=== PATIENT | male | born 1960 | race Caucasian/White ===

== ENCOUNTER → 2016-04-13 | Outpatient (REF) | payer MEDICARE, MEDICAID ==
[2016-04-13 17:02] LABS: INR 2.13
== END ==
LOC: M SFHCCAPE 11:06
PROVIDERS: ATTEND Physician Assistant
DX: Z51.81 Encounter for therapeutic drug level monitoring (principal); Z79.01 Long term (current) use of anticoagulants; Z86.718 Personal history of other venous thrombosis and embolism

== ENCOUNTER → 2016-04-21 | Outpatient (REF) | payer MEDICARE, MEDICAID ==
[2016-04-21 18:44] LABS: INR 2.81
== END ==
LOC: M SFHCCAPE 08:51
PROVIDERS: ATTEND Physician Assistant
DX: Z51.81 Encounter for therapeutic drug level monitoring (principal); Z86.718 Personal history of other venous thrombosis and embolism

== ENCOUNTER → 2016-04-28 | Outpatient (REF) | payer MEDICARE, MEDICAID ==
[~2016-04-28] MED LIST: ALBU17IN2 INH; ASPI1TAB PO; ATEN50TA2 PO; ATOR40TA PO; BUPR1TAB17 PO; BUPR300T34 PO; CALC600T57 PO; CETI10CH PO; COUM10TA PO; DILT180C74 PO; FAMO20TA PO; GLUC1CAP10 PO; HAIR1TAB5 PO; INSUH10VL SC; LANTINJ4 SC; METF1000 PO; MULT1TAB9 PO; NEUR300C PO; NEUR600T PO; OMEP40CA2 PO; OXYC1TAB16 PO; PRIL20CA9 PO; SERT-138 PO; TRAZ150T14 PO; UMECLIDINIUM INH; VITA500C24 PO; VITATAB11 PO; WARF4TAB52 PO
[2016-04-28 19:09] LABS: INR 1.44
== END ==
LOC: M SFHCCAPE 07:33
PROVIDERS: ATTEND Physician Assistant
DX: Z51.81 Encounter for therapeutic drug level monitoring (principal); Z79.01 Long term (current) use of anticoagulants; Z86.718 Personal history of other venous thrombosis and embolism

== ENCOUNTER → 2016-05-03 | Outpatient (CLI) | payer MEDICARE, MEDICAID ==
--- NOTE | 2016-05-05 05:46 | SLEEPCENT ---
DATE OF PROCEDURE: 05/03/2016 ORDERED BY: KATHERINE Koo Nocturnal polysomnography was performed for re-titration of pressure therapy in this patient with obstructive sleep apnea syndrome. For testing, a [employer] and [employer] [place], Simplus full face mask of large size was used. 13 cm of water pressure was initially applied to the circuit and the lights were extinguished. 7 hours and 10 minutes of data were reviewed. There were 368 minutes of sleep identified. Sleep latency was prolonged at 20 minutes. Rapid eye movement (REM) latency prolonged at 182 minutes. Sleep architecture was fair with a sleep efficiency of 88%. There were 2 REM periods noted. The patient's electrocardiogram (EKG) showed a sinus rhythm with an average heart rate of 88 beats per minute. Electroencephalogram (EEG) showed mild coarsening in the background, otherwise normal waveforms for awake and sleep. Respiratory events were reasonably palliated with CPAP at a pressure of +13. However, limb activity was noted persistently over the course of the study. There were 4-5 trains of 30 events. Limb movement arousal index was 9.1. IMPRESSION: 1. Obstructive sleep apnea syndrome (G47.33). 2. Periodic limb movement disorder (G47.61). Limb movement arousal index 9.1. RECOMMENDATION: Nightly use of pressure therapy at 13 cm of water would be sufficient to address the patient's respiratory events. Interventions to reduce the frequency arousal from limb activity should also improve quality of sleep.
== END | disposition home or self-care (01) ==
LOC: M SLEEP 19:42
PROVIDERS: ATTEND Nurse Practitioner Adult Health
DX: G47.33 Obstructive sleep apnea (adult) (pediatric) (principal); G47.61 Periodic limb movement disorder

== ENCOUNTER → 2016-05-05 | Outpatient (REF) | payer MEDICARE, MEDICAID ==
[2016-05-05 17:56] LABS: INR 1.55
== END ==
LOC: M SFHCCAPE 10:37
PROVIDERS: ATTEND Physician Assistant
DX: Z51.81 Encounter for therapeutic drug level monitoring (principal); Z79.01 Long term (current) use of anticoagulants; Z86.718 Personal history of other venous thrombosis and embolism

== ENCOUNTER → 2016-05-11 | Outpatient (REF) | payer MEDICARE, MEDICAID ==
[2016-05-11 18:07] LABS: INR 1.78
== END ==
LOC: M SFHCCAPE 10:35
PROVIDERS: ATTEND Physician Assistant
DX: Z51.81 Encounter for therapeutic drug level monitoring (principal); Z79.01 Long term (current) use of anticoagulants; Z86.718 Personal history of other venous thrombosis and embolism

== ENCOUNTER → 2016-05-18 | Outpatient (REF) | payer MEDICARE, MEDICAID ==
[2016-05-18 18:05] LABS: INR 2.42
== END ==
LOC: M SFHCCAPE 08:55
PROVIDERS: ATTEND Physician Assistant
DX: Z51.81 Encounter for therapeutic drug level monitoring (principal); Z79.01 Long term (current) use of anticoagulants; Z86.718 Personal history of other venous thrombosis and embolism

== ENCOUNTER → 2016-05-24 | Outpatient (REF) | payer MEDICARE, MEDICAID ==
[2016-05-24 18:25] LABS: ALBUMIN 3.9 GM/DL (3.2-5.2); ALBUMIN/GLOBULIN RATIO 1.18 (1.00-1.93); ALKALINE PHOSPHATASE 125 U/L (45-117); ALT/SGPT 49 U/L (12-78); ANION GAP 10 MEQ/L (8-16); AST/SGOT 39 U/L (15-37); BILIRUBIN,TOTAL 0.4 MG/DL (0.2-1.0); BLOOD UREA NITROGEN 17 MG/DL (7-18); CALCIUM LEVEL 8.1 MG/DL (8.5-10.1); CARBON DIOXIDE LEVEL 26 MEQ/L (21-32); CHLORIDE LEVEL 102 MEQ/L (98-107); CHOLESTEROL LEVEL 127 MG/DL (<200); CREATININE FOR GFR 1.12 MG/DL (0.70-1.30); FREE T4 1.21 NG/DL (0.76-1.46); GLOMERULAR FILTRATION RATE > 60.0 (>56); GLUCOSE, FASTING 234 MG/DL (70-105); POTASSIUM SERUM 4.5 MEQ/L (3.5-5.1); SODIUM LEVEL 138 MEQ/L (136-145); TOTAL PROTEIN 7.2 GM/DL (6.4-8.2); TRIGLYCERIDES LEVEL 241 MG/DL (<150)
[2016-05-24 19:16] LABS: BASO % 0.4 % (0.0-1.0); EOS # 0.2 K/mm3 (0.0-0.50); EOS % 1.7 % (0.0-3.0); LARGE UNSTAINED CELL # 0.1 K/mm3 (0.0-0.4); LARGE UNSTAINED CELL % 1.3 % (0.0-4.0); LYMPH # 2.1 K/mm3 (1.5-4.5); LYMPH % 21.3 % (24.0-44.0); MEAN CORPUSCULAR HEMOGLOBIN 30.8 pg (27.0-33.0); MEAN CORPUSCULAR HGB CONC 33.2 g/dl (32.0-36.5); MEAN CORPUSCULAR VOLUME 92.8 fl (80.0-96.0); MONO # 0.5 K/mm3 (0.0-0.8); MONO % 5.5 % (0.0-5.0); NEUTROPHILS # 6.5 K/mm3 (1.8-7.7); NEUTROPHILS % 69.6 % (36.0-66.0); PLATELET COUNT, AUTOMATED 198 k/mm3 (150-450); RED CELL DISTRIBUTION WIDTH 13.8 % (11.5-14.5); WHITE BLOOD COUNT 9.3 K/mm3 (4.0-10.0)
[2016-05-24 19:18] LABS: INR 3.9
== END ==
LOC: M SFHCCAPE 07:57
PROVIDERS: ATTEND Physician Assistant
DX: E11.8 Type 2 diabetes mellitus with unspecified complications (principal); F32.9 Major depressive disorder, single episode, unspecified; Z86.718 Personal history of other venous thrombosis and embolism

== ENCOUNTER → 2016-05-31 | Outpatient (REF) | payer MEDICARE, MEDICAID ==
[2016-05-31 17:48] LABS: INR 3.43
== END ==
LOC: M SFHCCAPE 08:49
PROVIDERS: ATTEND Physician Assistant
DX: Z51.81 Encounter for therapeutic drug level monitoring (principal); Z79.01 Long term (current) use of anticoagulants; Z86.718 Personal history of other venous thrombosis and embolism

== ENCOUNTER → 2016-06-01 | Outpatient (REF) | payer MEDICARE, MEDICAID ==
[2016-06-01 17:49] LABS: INR 2.37
== END ==
LOC: M SFHCCAPE 07:18
PROVIDERS: ATTEND Physician Assistant
DX: Z51.81 Encounter for therapeutic drug level monitoring (principal); Z79.01 Long term (current) use of anticoagulants; Z86.718 Personal history of other venous thrombosis and embolism

== ENCOUNTER → 2016-06-11 | Day surgery (SDC) | payer MEDICARE, MEDICAID ==
[~2016-06-11] VITALS: Ht 190.5 cm; Wt 122.5 kg
[~2016-06-11] MED LIST changes: +ALBUTEROL 6.7GM INHALER **FOR ANES. CART/OMNICELL ONLY As Ordered ONE; +BUPIVACAINE HCL 0.25% 30 ML VIAL As Ordered ONE; +BUPIVACAINE HCL 0.25% 30 ML VIAL XX ONE; +GLYCOPYRROLATE INJ 0.2 MG/ML 2 ML VIAL As Ordered ONE; +KETOROLAC 30 MG/ML VIAL (J1885) IV PRN; +KETOROLAC 60 MG/2 ML VIAL (J1885) As Ordered ONE; +LIDOCAINE 1% SDV INJ 30 ML VIAL As Ordered ONE; +LIDOCAINE 1% SDV INJ 30 ML VIAL XX ONE; +LIDOCAINE 2% INJ 100 MG/5 ML SDV (FOR ANES.) As Ordered ONE; +LR 1,000 ML IV SCH; +MIDAZOLAM INJ 2 MG/2 ML VIAL (J2250) As Ordered ONE; +NEOSTIGMINE 1MG/ML 5 ML SYRINGE (J2710) As Ordered ONE; +NORCO, ANEXSIA 5/325MG TABLET (HYDROcodone/ACETAMINOPHEN) PO PRN; +ONDANSETRON 4MG/2ML VIAL (J2405) As Ordered ONE; +ONDANSETRON 4MG/2ML VIAL (J2405) IV PRN; +PERCOCET 5MG/325MG TAB PO PRN; +PROPOFOL 200 MG/20 ML VIAL As Ordered ONE; +ROCURONIUM BROMIDE 50 MG/5 ML VIAL As Ordered ONE; +fentaNYL 100 MCG/2 ML INJECTION (J3010) As Ordered ONE; +fentaNYL 100 MCG/2 ML INJECTION (J3010) IV PRN
[2016-06-11 09:41] LABS: INR 0.91
[2016-06-11 13:55] VITALS: BP 120/61
--- NOTE | 2016-06-16 08:42 | RO ---
DATE OF PROCEDURE: 06/11/2016 PREOPERATIVE DIAGNOSIS: Umbilical hernia. POSTOPERATIVE DIAGNOSIS: Umbilical hernia. PROCEDURE: Laparoscopic umbilical hernia repair with 9 cm Parietex composite mesh. SURGEON: Dr. Hermelindo Mercado TAFFY PULLER: Dr. Mata ANESTHESIA: General anesthesia. ESTIMATED BLOOD LOSS: Less than 10 mL. COMPLICATIONS: None. REMARKS: The patient tolerated the procedure well. PROCEDURE NOTE: Mr. Mcwilliams is a 55-year-old gentleman who presented to my office with complaint of discomfort associated with small bulge just above his umbilicus. He was noted to have an umbilical hernia. Due to his discomfort, he was advised repair. We talked about our options and decided to perform this laparoscopically. He was seen by his primary care doctor and cleared for the surgery. He is on Coumadin for prior history of deep vein thrombosis (DVT) and pulmonary embolism (PE). This has been on hold for the past 5 days. He did got Unasyn preoperatively for prophylaxis. He was brought to the operating room and lad supine on the table. Compression boots placed on his lower extremities for DVT prophylaxis. General endotracheal anesthesia started without any complications. The abdomen prepped and draped widely for the procedure. A surgical time-out was performed. We began our surgery. A short transverse incision was created in the left subcostal space. A Veress needle introduced in a controlled fashion. Intra-abdominal placement confirmed with saline drop technique. CO2 insufflation started to a pressure of 15 mmHg. Using the same incision, a 5 mm Visiport was placed under direct vision of the laparoscopic. The insertion site was inspected for injury and none was found. The patient was placed in slight right Trendelenburg position. The second working port was placed on the left lower quadrant just above the anterior superior iliac spine. With manual palpation around the umbilical area, the contours of the umbilical hernia were defined. There was preperitoneal fat protruding through, roughly about a centimeter and a half defect. There were some fatty appendages along the umbilical ligament and likewise slightly floppy falciform ligament far away from the umbilicus. With pressure on the umbilicus, the preperitoneal contents of the hernia were dissected free off the umbilical skin cleft further defining the fascial edges of the hernia. We also brought down the fatty appendages along the umbilical ligament to accommodate the mesh. This was roughly about a 2 cm defect. I chose a 9 cm Parietex composite mesh. Long stay sutures of #0 Vicryl were placed onto opposite ends of the mesh. I marked the abdominal side of the mesh for identification. This was rolled tightly. I temporarily removed one of the left upper quadrant ports and introduced the mesh into the abdomen. After placing back the port, the mesh was unrolled and placed in position underneath the hernia defect. The abdominal insufflation was decreased down to 10 mmHg. The transabdominal sutures were pulled through the abdominal wall using a Tico-Ken device to hold the mesh in place, relatively flat along the contours of the abdomen using a Secure Strap device. The edges was tacked to the abdominal wall in a space of every 2 cm. A second row was also created just outside the hernia defect to hold this in place. At the end, the transabdominal sutures were tied to the abdominal wall. The abdomen was then slowly deflated as we removed the preperitoneal fat from the abdomen and all 5 mm ports. The skin was closed with #4-0 Monocryl in subcuticular fashion. Dermabond was used for wound coverage. The patient was promptly awakened, extubated, and brought to recovery room stable.
== END | disposition home or self-care (01) ==
LOC: M SDC 08:17
PROVIDERS: ATTEND Surgery
DX: K42.9 Umbilical hernia without obstruction or gangrene (principal); I10 Essential (primary) hypertension; E11.9 Type 2 diabetes mellitus without complications; J44.9 Chronic obstructive pulmonary disease, unspecified; E78.5 Hyperlipidemia, unspecified; K21.9 Gastro-esophageal reflux disease without esophagitis; I25.10 Atherosclerotic heart disease of native coronary artery without angina pectoris; Z95.5 Presence of coronary angioplasty implant and graft; K22.4 Dyskinesia of esophagus; G47.30 Sleep apnea, unspecified; M54.2 Cervicalgia; G57.93 Unspecified mononeuropathy of bilateral lower limbs; F32.9 Major depressive disorder, single episode, unspecified; F41.9 Anxiety disorder, unspecified; F17.210 Nicotine dependence, cigarettes, uncomplicated; Z88.8 Allergy status to other drugs, medicaments and biological substances; Z79.899 Other long term (current) drug therapy; Z79.01 Long term (current) use of anticoagulants; Z79.82 Long term (current) use of aspirin; Z79.84 Long term (current) use of oral hypoglycemic drugs; Z97.4 Presence of external hearing-aid
CPT/HCPCS: 36415; 49652; 85610; C1781; J0690; J1885; J2250; J2405; J2710; J3010

== ENCOUNTER → 2016-06-23 | Outpatient (REF) | payer MEDICARE, MEDICAID ==
[~2016-06-23] MED LIST changes: -ALBUTEROL 6.7GM INHALER **FOR ANES. CART/OMNICELL ONLY As Ordered ONE; -BUPIVACAINE HCL 0.25% 30 ML VIAL As Ordered ONE; -BUPIVACAINE HCL 0.25% 30 ML VIAL XX ONE; -GLYCOPYRROLATE INJ 0.2 MG/ML 2 ML VIAL As Ordered ONE; -KETOROLAC 30 MG/ML VIAL (J1885) IV PRN; -KETOROLAC 60 MG/2 ML VIAL (J1885) As Ordered ONE; -LIDOCAINE 1% SDV INJ 30 ML VIAL As Ordered ONE; -LIDOCAINE 1% SDV INJ 30 ML VIAL XX ONE; -LIDOCAINE 2% INJ 100 MG/5 ML SDV (FOR ANES.) As Ordered ONE; -LR 1,000 ML IV SCH; -MIDAZOLAM INJ 2 MG/2 ML VIAL (J2250) As Ordered ONE; -NEOSTIGMINE 1MG/ML 5 ML SYRINGE (J2710) As Ordered ONE; -NORCO, ANEXSIA 5/325MG TABLET (HYDROcodone/ACETAMINOPHEN) PO PRN; -ONDANSETRON 4MG/2ML VIAL (J2405) As Ordered ONE; -ONDANSETRON 4MG/2ML VIAL (J2405) IV PRN; -PERCOCET 5MG/325MG TAB PO PRN; -PROPOFOL 200 MG/20 ML VIAL As Ordered ONE; -ROCURONIUM BROMIDE 50 MG/5 ML VIAL As Ordered ONE; -fentaNYL 100 MCG/2 ML INJECTION (J3010) As Ordered ONE; -fentaNYL 100 MCG/2 ML INJECTION (J3010) IV PRN
[2016-06-23 18:16] LABS: INR 2.35
== END ==
LOC: M SFHCCAPE 08:10
PROVIDERS: ATTEND Physician Assistant
DX: Z51.81 Encounter for therapeutic drug level monitoring (principal); Z79.01 Long term (current) use of anticoagulants

== ENCOUNTER → 2016-06-30 | Outpatient (REF) | payer MEDICARE, MEDICAID ==
[2016-06-30 16:31] LABS: INR 3.42
== END ==
LOC: M SFHCCAPE 16:17
PROVIDERS: ATTEND Physician Assistant
DX: Z51.81 Encounter for therapeutic drug level monitoring (principal); Z79.01 Long term (current) use of anticoagulants

== ENCOUNTER → 2016-07-07 | Outpatient (REF) | payer MEDICARE, MEDICAID | LOC: M LAB REF 12:59 | PROVIDERS: ATTEND Nurse Practitioner Family | DX: D41.4 Neoplasm of uncertain behavior of bladder (principal); Z51.81 Encounter for therapeutic drug level monitoring; Z79.01 Long term (current) use of anticoagulants; Z79.899 Other long term (current) drug therapy | CPT/HCPCS: 36415; 81001; 85610; 87086; 88108; G0463 ==

== ENCOUNTER → 2016-07-07 | Outpatient (REF) | payer MEDICARE, MEDICAID ==
[2016-07-07 18:23] LABS: INR 1.14
== END ==
LOC: M SFHCCAPE 07:50
PROVIDERS: ATTEND Physician Assistant
DX: Z51.81 Encounter for therapeutic drug level monitoring (principal); Z79.01 Long term (current) use of anticoagulants

== ENCOUNTER → 2016-07-14 | Outpatient (REF) | payer MEDICARE, MEDICAID ==
[2016-07-14 18:08] LABS: INR 1.19
== END ==
LOC: M SFHCCAPE 07:57
PROVIDERS: ATTEND Physician Assistant
DX: J02.9 Acute pharyngitis, unspecified (principal); Z86.718 Personal history of other venous thrombosis and embolism
CPT/HCPCS: 36415; 85610; 87880; G0463

== ENCOUNTER → 2016-07-26 | Outpatient (REF) | payer MEDICARE, MEDICAID ==
[2016-07-26 17:35] LABS: INR 2.16
== END ==
LOC: M SFHCCAPE 07:42
PROVIDERS: ATTEND Physician Assistant
DX: Z86.718 Personal history of other venous thrombosis and embolism (principal)

== ENCOUNTER → 2016-08-02 | Outpatient (REF) | payer MEDICARE, MEDICAID ==
[2016-08-02 18:19] LABS: INR 2.46
== END ==
LOC: M SFHCCAPE 07:07
PROVIDERS: ATTEND Physician Assistant
DX: Z51.81 Encounter for therapeutic drug level monitoring (principal); Z79.01 Long term (current) use of anticoagulants; Z86.718 Personal history of other venous thrombosis and embolism

== ENCOUNTER → 2016-08-11 | Outpatient (REF) | payer MEDICARE, MEDICAID ==
[2016-08-11 16:38] LABS: INR 3.74
== END ==
LOC: M SFHCCAPE 07:20
PROVIDERS: ATTEND Physician Assistant
DX: Z51.81 Encounter for therapeutic drug level monitoring (principal); Z79.01 Long term (current) use of anticoagulants; Z86.718 Personal history of other venous thrombosis and embolism

== ENCOUNTER → 2016-08-18 | Outpatient (REF) | payer MEDICARE, MEDICAID ==
[2016-08-18 16:31] LABS: INR 2.94
== END ==
LOC: M SFHCCAPE 07:11
PROVIDERS: ATTEND Physician Assistant
DX: Z86.718 Personal history of other venous thrombosis and embolism (principal)

== ENCOUNTER → 2016-09-01 | Outpatient (REF) | payer MEDICARE, MEDICAID ==
[2016-09-01 18:30] LABS: INR 1.61
== END ==
LOC: M SFHCCAPE 07:50
PROVIDERS: ATTEND Physician Assistant
DX: Z51.81 Encounter for therapeutic drug level monitoring (principal); Z79.01 Long term (current) use of anticoagulants; Z86.718 Personal history of other venous thrombosis and embolism

== ENCOUNTER → 2016-09-13 | Outpatient (REF) | payer MEDICARE, MEDICAID ==
[2016-09-13 16:51] LABS: INR 2.42
== END ==
LOC: M SFHCCAPE 08:34
PROVIDERS: ATTEND Physician Assistant
DX: Z51.81 Encounter for therapeutic drug level monitoring (principal); Z79.01 Long term (current) use of anticoagulants; Z86.718 Personal history of other venous thrombosis and embolism

== ENCOUNTER → 2016-09-22 | Outpatient (REF) | payer MEDICARE, MEDICAID ==
[2016-09-22 18:32] LABS: INR 3.08
== END ==
LOC: M SFHCCAPE 09:56
PROVIDERS: ATTEND Physician Assistant
DX: Z86.718 Personal history of other venous thrombosis and embolism (principal)

== ENCOUNTER → 2016-10-04 | Outpatient (REF) | payer MEDICARE, MEDICAID ==
[~2016-10-04] MED LIST changes: -ATOR40TA PO; +ATOR40TA75 PO; -BUPR1TAB17 PO; +BUPR1TAB53 PO; +BYDU1INJ SC; +INCR1INH IN; -METF1000 PO; +METF10004 PO; +RABE1TAB PO; +RANI15TA PO; +ROBA500T PO; -TRAZ150T14 PO; +TRAZ1TAB14 PO
[2016-10-04 17:14] LABS: INR 3.74
== END ==
LOC: M SFHCCAPE 07:50
PROVIDERS: ATTEND Physician Assistant
DX: I27.2 Other secondary pulmonary hypertension (principal); Z51.81 Encounter for therapeutic drug level monitoring; Z79.01 Long term (current) use of anticoagulants

== ENCOUNTER → 2016-10-11 | Outpatient (REF) | payer MEDICARE, MEDICAID ==
[2016-10-11 19:28] LABS: INR 2.73
[2016-10-11 21:21] LABS: ALBUMIN 4.2 GM/DL (3.2-5.2); ALBUMIN/GLOBULIN RATIO 1.35 (1.00-1.93); ALKALINE PHOSPHATASE 101 U/L (45-117); ALT/SGPT 52 U/L (12-78); ANION GAP 7 MEQ/L (8-16); AST/SGOT 34 U/L (15-37); BILIRUBIN,TOTAL 0.4 MG/DL (0.2-1.0); BLOOD UREA NITROGEN 17 MG/DL (7-18); CALCIUM LEVEL 9.2 MG/DL (8.5-10.1); CARBON DIOXIDE LEVEL 27 MEQ/L (21-32); CHLORIDE LEVEL 103 MEQ/L (98-107); CHOLESTEROL LEVEL 132 MG/DL (<200); CREATININE FOR GFR 1.11 MG/DL (0.70-1.30); GLOMERULAR FILTRATION RATE > 60.0 (>56); GLUCOSE, FASTING 107 MG/DL (70-105); POTASSIUM SERUM 4.6 MEQ/L (3.5-5.1); SODIUM LEVEL 137 MEQ/L (136-145); TOTAL PROTEIN 7.3 GM/DL (6.4-8.2); TRIGLYCERIDES LEVEL 167 MG/DL (<150)
== END ==
LOC: M SFHCCAPE 07:52
PROVIDERS: ATTEND Physician Assistant
DX: E11.8 Type 2 diabetes mellitus with unspecified complications (principal); Z79.01 Long term (current) use of anticoagulants

== ENCOUNTER → 2016-10-19 | Outpatient (REF) | payer MEDICARE, MEDICAID ==
[2016-10-19 19:43] LABS: INR 3.52
== END ==
LOC: M SFHCCAPE 09:27
PROVIDERS: ATTEND Physician Assistant
DX: Z51.81 Encounter for therapeutic drug level monitoring (principal); Z79.01 Long term (current) use of anticoagulants; I25.10 Atherosclerotic heart disease of native coronary artery without angina pectoris

== ENCOUNTER → 2016-10-27 | Outpatient (REF) | payer MEDICARE, MEDICAID ==
[2016-10-27 20:10] LABS: INR 3.95
== END ==
LOC: M SFHCCAPE 07:28
PROVIDERS: ATTEND Physician Assistant
DX: I25.10 Atherosclerotic heart disease of native coronary artery without angina pectoris (principal); Z51.81 Encounter for therapeutic drug level monitoring; Z79.01 Long term (current) use of anticoagulants

== ENCOUNTER → 2016-11-04 | Outpatient (REF) | payer MEDICARE, MEDICAID ==
[2016-11-04 17:01] LABS: INR 2.68
== END ==
LOC: M SFHCCAPE 09:01
PROVIDERS: ATTEND Physician Assistant
DX: Z51.81 Encounter for therapeutic drug level monitoring (principal); Z79.01 Long term (current) use of anticoagulants
CPT/HCPCS: 85610; G0463

== ENCOUNTER → 2016-11-10 | Outpatient (REF) | payer MEDICARE, MEDICAID ==
[2016-11-10 17:18] LABS: INR 0.9
== END ==
LOC: M SFHCCAPE 08:10
PROVIDERS: ATTEND Physician Assistant
DX: Z51.81 Encounter for therapeutic drug level monitoring (principal); Z79.01 Long term (current) use of anticoagulants; Z86.718 Personal history of other venous thrombosis and embolism

== ENCOUNTER → 2016-11-22 | Outpatient (REF) | payer MEDICARE, MEDICAID ==
[2016-11-22 16:58] LABS: INR 1.74
== END ==
LOC: M SFHCCAPE 07:58
PROVIDERS: ATTEND Physician Assistant
DX: Z51.81 Encounter for therapeutic drug level monitoring (principal); Z79.01 Long term (current) use of anticoagulants; Z86.718 Personal history of other venous thrombosis and embolism

== ENCOUNTER → 2016-11-29 | Outpatient (REF) | payer MEDICARE, MEDICAID ==
[2016-11-29 18:23] LABS: INR 2.28
== END ==
LOC: M SFHCCAPE 07:43
PROVIDERS: ATTEND Physician Assistant
DX: I25.10 Atherosclerotic heart disease of native coronary artery without angina pectoris (principal); Z51.81 Encounter for therapeutic drug level monitoring; Z79.01 Long term (current) use of anticoagulants

== ENCOUNTER → 2016-12-06 | Outpatient (REF) | payer MEDICARE, MEDICAID ==
[2016-12-06 17:42] LABS: INR 3.59
== END ==
LOC: M SFHCCAPE 10:10
PROVIDERS: ATTEND Physician Assistant
DX: I25.10 Atherosclerotic heart disease of native coronary artery without angina pectoris (principal); Z51.81 Encounter for therapeutic drug level monitoring; Z79.01 Long term (current) use of anticoagulants; Z86.718 Personal history of other venous thrombosis and embolism

== ENCOUNTER → 2016-12-14 | Outpatient (REF) | payer MEDICARE, MEDICAID ==
[2016-12-14 17:06] LABS: INR 2.55
== END ==
LOC: M SFHCCAPE 07:13
PROVIDERS: ATTEND Physician Assistant
DX: Z51.81 Encounter for therapeutic drug level monitoring (principal); Z79.01 Long term (current) use of anticoagulants; Z86.718 Personal history of other venous thrombosis and embolism

== ENCOUNTER → 2016-12-20 | Outpatient (REF) | payer MEDICARE, MEDICAID ==
[2016-12-20 17:31] LABS: INR 3.05
== END ==
LOC: M SFHCCAPE 08:16
PROVIDERS: ATTEND Physician Assistant
DX: Z51.81 Encounter for therapeutic drug level monitoring (principal); Z79.01 Long term (current) use of anticoagulants; I25.10 Atherosclerotic heart disease of native coronary artery without angina pectoris

== ENCOUNTER → 2016-12-27 | Outpatient (REF) | payer MEDICARE, MEDICAID ==
[2016-12-27 17:45] LABS: INR 3.39
== END ==
LOC: M SFHCCAPE 07:49
PROVIDERS: ATTEND Physician Assistant
DX: Z51.81 Encounter for therapeutic drug level monitoring (principal); I25.10 Atherosclerotic heart disease of native coronary artery without angina pectoris; Z79.01 Long term (current) use of anticoagulants

== ENCOUNTER → 2017-01-03 | Outpatient (REF) | payer MEDICARE, MEDICAID ==
[2017-01-03 18:38] LABS: INR 2.5
== END ==
LOC: M SFHCCAPE 07:57
PROVIDERS: ATTEND Physician Assistant
DX: I25.10 Atherosclerotic heart disease of native coronary artery without angina pectoris (principal); Z51.81 Encounter for therapeutic drug level monitoring; Z79.01 Long term (current) use of anticoagulants

== ENCOUNTER → 2017-01-10 | Outpatient (REF) | payer MEDICARE, MEDICAID ==
[2017-01-10 18:22] LABS: INR 3.3
== END ==
LOC: M SFHCCAPE 07:45
PROVIDERS: ATTEND Physician Assistant
DX: I25.10 Atherosclerotic heart disease of native coronary artery without angina pectoris (principal); Z51.81 Encounter for therapeutic drug level monitoring; Z79.01 Long term (current) use of anticoagulants

== ENCOUNTER → 2017-01-17 | Outpatient (REF) | payer MEDICARE, MEDICAID ==
[2017-01-17 17:23] LABS: INR 2.24
== END ==
LOC: M SFHCCAPE 07:20
PROVIDERS: ATTEND Physician Assistant
DX: I25.10 Atherosclerotic heart disease of native coronary artery without angina pectoris (principal); Z51.81 Encounter for therapeutic drug level monitoring; Z79.01 Long term (current) use of anticoagulants

== ENCOUNTER → 2017-01-31 | Outpatient (REF) | payer MEDICARE, MEDICAID ==
[2017-01-31 20:10] LABS: ANION GAP 9 MEQ/L (8-16); BLOOD UREA NITROGEN 12 MG/DL (7-18); CALCIUM LEVEL 8.9 MG/DL (8.5-10.1); CARBON DIOXIDE LEVEL 24 MEQ/L (21-32); CHLORIDE LEVEL 105 MEQ/L (98-107); CREATININE FOR GFR 1.13 MG/DL (0.70-1.30); GLOMERULAR FILTRATION RATE > 60.0 (>56); GLUCOSE, FASTING 143 MG/DL (70-105); SODIUM LEVEL 138 MEQ/L (136-145)
== END ==
LOC: M LAB REF 10:16
PROVIDERS: ATTEND Internal Medicine Cardiovascular Disease
DX: I10 Essential (primary) hypertension (principal); E11.9 Type 2 diabetes mellitus without complications; Z79.4 Long term (current) use of insulin; Z79.82 Long term (current) use of aspirin; Z79.01 Long term (current) use of anticoagulants; Z79.899 Other long term (current) drug therapy

== ENCOUNTER → 2017-01-31 | Outpatient (REF) | payer MEDICARE, MEDICAID ==
[2017-01-31 20:41] LABS: INR 2.38
[2017-01-31 20:43] LABS: BASO # 0.1 10^3/uL (0.0-0.2); BASO % 0.7 % (0.0-1.0); EOS # 0.1 10^3/uL (0.0-0.50); EOS % 1.2 % (0.0-3.0); IMMATURE GRANULOCYTE % 0.3 % (0-0); LYMPH # 2.1 10^3/uL (1.5-4.5); LYMPH % 23.1 % (24.0-44.0); MEAN CORPUSCULAR HEMOGLOBIN 30.4 pg (27.0-33.0); MEAN CORPUSCULAR HGB CONC 32.9 g/dl (32.0-36.5); MEAN CORPUSCULAR VOLUME 92.5 fl (80.0-96.0); MONO # 0.7 10^3/uL (0.0-0.8); MONO % 7.5 % (0.0-5.0); NEUTROPHILS # 6.2 10^3/uL (1.8-7.7); NEUTROPHILS % 67.2 % (36.0-66.0); PLATELET COUNT, AUTOMATED 203 10^3/uL (150-450); RED CELL DISTRIBUTION WIDTH 13.9 % (11.5-14.5); WHITE BLOOD COUNT 9.2 10^3/uL (4.0-10.0)
[2017-01-31 20:44] LABS: ALBUMIN/GLOBULIN RATIO 1.14 (1.00-1.93); ALKALINE PHOSPHATASE 121 U/L (45-117); ALT/SGPT 46 U/L (12-78); ANION GAP 9 MEQ/L (8-16); AST/SGOT 30 U/L (15-37); BILIRUBIN,TOTAL 0.4 MG/DL (0.2-1.0); BLOOD UREA NITROGEN 11 MG/DL (7-18); CALCIUM LEVEL 8.8 MG/DL (8.5-10.1); CARBON DIOXIDE LEVEL 26 MEQ/L (21-32); CHLORIDE LEVEL 103 MEQ/L (98-107); CHOLESTEROL LEVEL 131 MG/DL (<200); FREE T4 0.94 NG/DL (0.76-1.46); GLOMERULAR FILTRATION RATE > 60.0 (>56); GLUCOSE, FASTING 134 MG/DL (70-105); POTASSIUM SERUM 4.9 MEQ/L (3.5-5.1); SODIUM LEVEL 138 MEQ/L (136-145); TOTAL PROTEIN 7.5 GM/DL (6.4-8.2); TRIGLYCERIDES LEVEL 111 MG/DL (<150)
== END ==
LOC: M SFHCCAPE 09:04
PROVIDERS: ATTEND Physician Assistant
DX: E78.5 Hyperlipidemia, unspecified (principal); E11.8 Type 2 diabetes mellitus with unspecified complications; I25.10 Atherosclerotic heart disease of native coronary artery without angina pectoris; Z51.81 Encounter for therapeutic drug level monitoring; Z79.01 Long term (current) use of anticoagulants

== ENCOUNTER → 2017-02-08 | Outpatient (REF) | payer MEDICARE, MEDICAID ==
[2017-02-08 17:23] LABS: INR 2.52
== END ==
LOC: M SFHCCAPE 07:52
PROVIDERS: ATTEND Physician Assistant
DX: I25.10 Atherosclerotic heart disease of native coronary artery without angina pectoris (principal); Z51.81 Encounter for therapeutic drug level monitoring; Z79.01 Long term (current) use of anticoagulants

== ENCOUNTER → 2017-02-21 | Outpatient (CLI) | payer MEDICARE, MEDICAID ==
--- NOTE | 2017-02-21 09:50 | REP ---
Clinical: Right upper quadrant pain. Technique: Real time nichole scale ultrasound examination using curved array transducer. Findings: Liver demonstrates mild fatty infiltration without focal hepatic lesion identified. Gallbladder is normal and without wall thickening, pericholecystic fluid, cholelithiasis, or biliary ductal dilatation. Common bile duct measures 2.2 mm diameter. Visualized portions of the pancreas are unremarkable. The spleen is mildly enlarged and measures 11.7 x 11.2 x 4.4 cm with a splenic index of 576. No focal splenic lesions are identified. The kidneys are relatively normal in appearance and without hydronephrosis or nephrolithiasis and no obvious renal mass lesion. Incidental note is made of 1.2 and 1.8 cm simple right renal cysts. Visualized portions of the abdominal aorta are normal and measures 2.4 centimeters maximal diameter. No ascites. Impression: 1. Two simple right renal cysts similar to prior ultrasound and CT. 2. Spleen is minimally enlarged but otherwise normal in appearance. Signed by Alo Jarrell MD 02/21/2017 09:41 A
== END ==
LOC: M RAD 08:20
PROVIDERS: ATTEND Physician Assistant
DX: R10.11 Right upper quadrant pain (principal)

== ENCOUNTER → 2017-02-22 | Outpatient (REF) | payer MEDICARE, MEDICAID ==
[2017-02-22 17:50] LABS: INR 1.06
== END ==
LOC: M SFHCCAPE 08:12
PROVIDERS: ATTEND Physician Assistant
DX: I25.10 Atherosclerotic heart disease of native coronary artery without angina pectoris (principal); Z23 Encounter for immunization
CPT/HCPCS: 85610; 90471; 90686; G0463

== ENCOUNTER → 2017-02-28 | Outpatient (REF) | payer MEDICARE, MEDICAID ==
[2017-02-28 16:25] LABS: INR 2.56
== END ==
LOC: M SFHCCAPE 07:53
PROVIDERS: ATTEND Physician Assistant
DX: I25.10 Atherosclerotic heart disease of native coronary artery without angina pectoris (principal); Z51.81 Encounter for therapeutic drug level monitoring; Z79.01 Long term (current) use of anticoagulants

== ENCOUNTER → 2017-03-01 | Outpatient (CLI) | payer MEDICARE, MEDICAID ==
--- NOTE | 2017-03-01 10:25 | REP ---
Clinical: Acute shortness of breath . Comparison: None . Technique: PA and lateral. Findings: The mediastinum and cardiac silhouette are normal. The lung pavon are clear and without acute consolidation, effusion, or pneumothorax. The skeletal structures are intact and normal. Impression: 1. No acute cardiopulmonary process. Signed by Alo Jarrell MD 03/01/2017 10:16 A
== END ==
LOC: M CLY 09:38
PROVIDERS: ATTEND Physician Assistant
DX: R06.02 Shortness of breath (principal)

== ENCOUNTER → 2017-03-07 | Outpatient (REF) | payer MEDICARE, MEDICAID ==
[2017-03-07 16:55] LABS: INR 2.53
== END ==
LOC: M SFHCCAPE 07:10
PROVIDERS: ATTEND Physician Assistant
DX: I25.10 Atherosclerotic heart disease of native coronary artery without angina pectoris (principal)

== ENCOUNTER → 2017-03-23 | Outpatient (REF) | payer MEDICARE, MEDICAID | LOC: M LABDRWCV 16:15 | PROVIDERS: ATTEND Nurse Practitioner Psychiatric/Mental Health | DX: E55.9 Vitamin D deficiency, unspecified (principal) ==

== ENCOUNTER → 2017-03-23 | Outpatient (REF) | payer MEDICARE, MEDICAID ==
[2017-03-23 16:43] LABS: INR 2.79
== END ==
LOC: M SFHCCAPE 07:32
PROVIDERS: ATTEND Physician Assistant
DX: I25.10 Atherosclerotic heart disease of native coronary artery without angina pectoris (principal); Z51.81 Encounter for therapeutic drug level monitoring; Z79.01 Long term (current) use of anticoagulants

== ENCOUNTER → 2017-04-14 | Outpatient (REF) | payer MEDICARE, MEDICAID ==
[2017-04-14 16:46] LABS: INR 2.61
== END ==
LOC: M SFHCCAPE 08:48
DX: Z86.718 Personal history of other venous thrombosis and embolism (principal)
CPT/HCPCS: 85610

== ENCOUNTER → 2017-05-04 | Outpatient (REF) | payer MEDICARE, MEDICAID ==
[2017-05-04 18:56] LABS: INR 2.04; PROTHROMBIN TIME 23.7 SECONDS (12.4-14.5)
== END ==
LOC: M SFHCCAPE 08:05
DX: Z51.81 Encounter for therapeutic drug level monitoring (principal); Z79.01 Long term (current) use of anticoagulants; Z86.718 Personal history of other venous thrombosis and embolism
CPT/HCPCS: 85610

== ENCOUNTER → 2017-05-13 | Outpatient (CLI) | payer MEDICARE, MEDICAID | LOC: M PAIN 11:00 | DX: M54.5 Low back pain (principal); G89.29 Other chronic pain; E11.9 Type 2 diabetes mellitus without complications; I10 Essential (primary) hypertension; I25.10 Atherosclerotic heart disease of native coronary artery without angina pectoris; E78.5 Hyperlipidemia, unspecified; K21.9 Gastro-esophageal reflux disease without esophagitis; Z79.4 Long term (current) use of insulin; Z79.01 Long term (current) use of anticoagulants; Z79.82 Long term (current) use of aspirin; Z79.891 Long term (current) use of opiate analgesic; Z79.899 Other long term (current) drug therapy; Z86.718 Personal history of other venous thrombosis and embolism; Z86.69 Personal history of other diseases of the nervous system and sense organs; Z87.891 Personal history of nicotine dependence | CPT/HCPCS: G0463 ==

== ENCOUNTER → 2017-06-06 | Outpatient (REF) | payer MEDICARE, MEDICAID ==
[2017-06-06 16:37] LABS: INR 1.94; PROTHROMBIN TIME 22.8 SECONDS (12.4-14.5)
== END ==
LOC: M SFHCCAPE 09:52
DX: Z86.718 Personal history of other venous thrombosis and embolism (principal)
CPT/HCPCS: 85610

== ENCOUNTER → 2017-06-07 | Outpatient (REF) | payer MEDICARE, MEDICAID | LOC: M SFHCCAPE 11:44 | DX: E78.5 Hyperlipidemia, unspecified (principal); E11.8 Type 2 diabetes mellitus with unspecified complications; R10.84 Generalized abdominal pain; Z53.8 Procedure and treatment not carried out for other reasons ==

== ENCOUNTER → 2017-06-07 | Outpatient (CLI) | payer MEDICARE, MEDICAID ==
[~2017-06-07] MED LIST changes: -ALBU17IN2 INH; -ASPI1TAB PO; -ATEN50TA2 PO; -ATOR40TA75 PO; -BUPR1TAB53 PO; -BUPR300T34 PO; -BYDU1INJ SC; -CALC600T57 PO; -CETI10CH PO; -COUM10TA PO; -DILT180C74 PO; -FAMO20TA PO; +GASTROGRAFIN SOLUTION 30ML (Q9963) As Ordered; -GLUC1CAP10 PO; -HAIR1TAB5 PO; -INCR1INH IN; -INSUH10VL SC; +ISOVUE-370 76% 100ML VIAL (Q9967) As Ordered; -LANTINJ4 SC; -METF10004 PO; -MULT1TAB9 PO; -NEUR300C PO; -NEUR600T PO; -OMEP40CA2 PO; -OXYC1TAB16 PO; -PRIL20CA9 PO; -RABE1TAB PO; -RANI15TA PO; -ROBA500T PO; -SERT-138 PO; -TRAZ1TAB14 PO; -UMECLIDINIUM INH; -VITA500C24 PO; -VITATAB11 PO; -WARF4TAB52 PO
[2017-06-07 13:47] LABS: BASO # 0.1 10^3/uL (0.0-0.2); BASO % 0.5 % (0.0-1.0); EOS # 0.2 10^3/uL (0.0-0.50); EOS % 1.5 % (0.0-3.0); HEMATOCRIT 46.8 % (42.0-52.0); HEMOGLOBIN 15.8 g/dl (14.0-18.0); IMMATURE GRANULOCYTE % 0.3 % (0-3.0); LYMPH # 2.4 10^3/uL (1.5-4.5); LYMPH % 20.1 % (24.0-44.0); MEAN CORPUSCULAR HEMOGLOBIN 29.5 pg (27.0-33.0); MEAN CORPUSCULAR HGB CONC 33.8 g/dl (32.0-36.5); MEAN CORPUSCULAR VOLUME 87.3 fl (80.0-96.0); MONO # 0.8 10^3/uL (0.0-0.8); MONO % 6.5 % (0.0-5.0); NEUTROPHILS # 8.5 10^3/uL (1.8-7.7); NEUTROPHILS % 71.1 % (36.0-66.0); PLATELET COUNT, AUTOMATED 251 10^3/uL (150-450); RED BLOOD COUNT 5.36 10^6/uL (4.30-6.10); RED CELL DISTRIBUTION WIDTH 13.8 % (11.5-14.5); WHITE BLOOD COUNT 11.9 10^3/uL (4.0-10.0)
[2017-06-07 13:55] LABS: APPEARANCE, URINE CLEAR (CLEAR); BACTERIA, URINE AUTO NEGATIVE (NEGATIVE); BILIRUBIN, URINE AUTO NEGATIVE (NEGATIVE); BLOOD, URINE BLOOD NEGATIVE (NEGATIVE); COLOR, URINE YELLOW (YELLOW); GLUCOSE, URINE (UA) AUTO NEGATIVE (NEGATIVE); KETONE, URINE AUTO NEGATIVE (NEGATIVE); LEUKOCYTE ESTERASE, URINE AUTO NEGATIVE (NEGATIVE); NITRITE, URINE AUTO NEGATIVE (NEGATIVE); PROTEIN, URINE AUTO NEGATIVE (NEGATIVE); RBC, URINE AUTO 1 /HPF (0-3); SPECIFIC GRAVITY URINE AUTO 1.012 (1.002-1.035); SQUAMOUS EPITHELIAL CELL UR AU 0 /HPF (0-6); UROBILINOGEN, URINE AUTO 0.2 mg/dL (0.0-2.0); WBC, URINE AUTO 0 /HPF (0-3)
[2017-06-07 14:29] LABS: ALBUMIN 4.1 GM/DL (3.2-5.2); ALBUMIN/GLOBULIN RATIO 1.11 (1.00-1.93); ALKALINE PHOSPHATASE 125 U/L (45-117); ALT/SGPT 42 U/L (12-78); ANION GAP 9 MEQ/L (8-16); AST/SGOT 28 U/L (7-37); BILIRUBIN,TOTAL 0.4 MG/DL (0.2-1.0); BLOOD UREA NITROGEN 17 MG/DL (7-18); CALCIUM LEVEL 9.6 MG/DL (8.5-10.1); CARBON DIOXIDE LEVEL 28 MEQ/L (21-32); CHLORIDE LEVEL 99 MEQ/L (98-107); CREATININE FOR GFR 1.26 MG/DL (0.70-1.30); FREE T4 0.97 NG/DL (0.76-1.46); GLOMERULAR FILTRATION RATE > 60.0 (>56); GLUCOSE, FASTING 151 MG/DL (70-100); LIPASE 109 U/L (73-393); POTASSIUM SERUM 4.5 MEQ/L (3.5-5.1); SODIUM LEVEL 136 MEQ/L (136-145); THYROID STIMULATING HORMONE 0.877 uIU/ML (0.358-3.740); TOTAL PROTEIN 7.8 GM/DL (6.4-8.2)
[2017-06-07 14:32] LABS: CREATININE, URINE 97.8 MG/DL; MALB URINE SIEMENS 6.2 MG/L; MAU/CREAT RATIO 6.3 MCG/MG (0.0-30.0)
[2017-06-07 14:41] LABS: ESTIMATED AVERAGE GLUCOSE 148 MG/DL (60-110); HEMOGLOBIN A1c 6.8 %
== END ==
LOC: M LAB 12:59
DX: K76.89 Other specified diseases of liver (principal); K28.1 Acute gastrojejunal ulcer with perforation; E78.5 Hyperlipidemia, unspecified; E11.8 Type 2 diabetes mellitus with unspecified complications; R10.84 Generalized abdominal pain
CPT/HCPCS: Q9963

== ENCOUNTER → 2017-06-10 | Outpatient (CLI) | payer MEDICARE, MEDICAID | LOC: M PAIN 10:15 | DX: G89.29 Other chronic pain (principal); M54.40 Lumbago with sciatica, unspecified side; M79.1 Myalgia; E11.9 Type 2 diabetes mellitus without complications; I10 Essential (primary) hypertension; J44.9 Chronic obstructive pulmonary disease, unspecified; E78.5 Hyperlipidemia, unspecified; K21.9 Gastro-esophageal reflux disease without esophagitis; I27.20 Pulmonary hypertension, unspecified; I25.10 Atherosclerotic heart disease of native coronary artery without angina pectoris; G47.33 Obstructive sleep apnea (adult) (pediatric); N41.9 Inflammatory disease of prostate, unspecified; Z79.82 Long term (current) use of aspirin; Z79.4 Long term (current) use of insulin; Z79.01 Long term (current) use of anticoagulants; Z79.891 Long term (current) use of opiate analgesic; Z79.899 Other long term (current) drug therapy; Z87.891 Personal history of nicotine dependence; Z87.442 Personal history of urinary calculi; Z88.8 Allergy status to other drugs, medicaments and biological substances | CPT/HCPCS: G0463 ==

== ENCOUNTER → 2017-06-13 | Outpatient (REF) | payer MEDICARE, MEDICAID | LOC: M SFHCCAPE 11:21 | DX: I25.10 Atherosclerotic heart disease of native coronary artery without angina pectoris (principal); Z53.8 Procedure and treatment not carried out for other reasons ==

== ENCOUNTER → 2017-06-16 | Outpatient (REF) | payer MEDICARE, MEDICAID ==
[2017-06-16 17:12] LABS: INR 3.36; PROTHROMBIN TIME 35.6 SECONDS (12.4-14.5)
== END ==
LOC: M SFHCCAPE 07:06
DX: I25.10 Atherosclerotic heart disease of native coronary artery without angina pectoris (principal)
CPT/HCPCS: 85610

== ENCOUNTER → 2017-06-22 | Outpatient (REF) | payer MEDICARE, MEDICAID ==
[2017-06-22 16:43] LABS: INR 3.14; PROTHROMBIN TIME 33.7 SECONDS (12.4-14.5)
== END ==
LOC: M SFHCCAPE 10:11
DX: I25.10 Atherosclerotic heart disease of native coronary artery without angina pectoris (principal)
CPT/HCPCS: 85610

== ENCOUNTER 2017-06-27 10:48 | Day surgery (SDC) | payer MEDICARE, MEDICAID ==
[2017-06-27] MEDS ORDERED: NS 1,000 ML IV (11:15)
[2017-06-27] MEDS ORDERED: PROPOFOL 500 MG/50 ML VIAL As Ordered (12:07)
[2017-06-27] MEDS ORDERED: LIDOCAINE 2% INJ 100 MG/5 ML SDV (FOR ANES.) As Ordered (12:10)
[2017-06-27] MEDS ORDERED: PROPOFOL 200 MG/20 ML VIAL As Ordered ×2 (12:55→13:12)
== END 2017-06-27 14:16 | disposition home or self-care (01) ==
LOC: M OPP 10:48
DX: Z12.11 Encounter for screening for malignant neoplasm of colon (principal); Z86.010 Personal history of colon polyps; D12.2 Benign neoplasm of ascending colon; D12.4 Benign neoplasm of descending colon; D12.7 Benign neoplasm of rectosigmoid junction; K57.30 Diverticulosis of large intestine without perforation or abscess without bleeding; K64.8 Other hemorrhoids; R13.10 Dysphagia, unspecified; K21.0 Gastro-esophageal reflux disease with esophagitis; K29.70 Gastritis, unspecified, without bleeding; I10 Essential (primary) hypertension; I25.10 Atherosclerotic heart disease of native coronary artery without angina pectoris; Z95.5 Presence of coronary angioplasty implant and graft; E78.5 Hyperlipidemia, unspecified; E11.9 Type 2 diabetes mellitus without complications; K58.9 Irritable bowel syndrome, unspecified; R12 Heartburn; Z86.718 Personal history of other venous thrombosis and embolism; R23.3 Spontaneous ecchymoses; M19.90 Unspecified osteoarthritis, unspecified site; M54.2 Cervicalgia; M54.5 Low back pain; R21 Rash and other nonspecific skin eruption; F41.9 Anxiety disorder, unspecified; F32.9 Major depressive disorder, single episode, unspecified; G62.9 Polyneuropathy, unspecified; J44.9 Chronic obstructive pulmonary disease, unspecified; Z86.711 Personal history of pulmonary embolism; G47.30 Sleep apnea, unspecified; N40.1 Benign prostatic hyperplasia with lower urinary tract symptoms; Z87.442 Personal history of urinary calculi; Z87.891 Personal history of nicotine dependence; Z88.8 Allergy status to other drugs, medicaments and biological substances; Z79.82 Long term (current) use of aspirin; Z79.899 Other long term (current) drug therapy; Z79.01 Long term (current) use of anticoagulants; Z79.4 Long term (current) use of insulin; Z80.49 Family history of malignant neoplasm of other genital organs
CPT/HCPCS: 45385

== ENCOUNTER → 2017-07-06 | Outpatient (REF) | payer MEDICARE, MEDICAID ==
[2017-07-06 17:16] LABS: INR 2.27; PROTHROMBIN TIME 25.9 SECONDS (12.4-14.5)
== END ==
LOC: M SFHCCAPE 09:30
DX: I25.10 Atherosclerotic heart disease of native coronary artery without angina pectoris (principal); Z51.81 Encounter for therapeutic drug level monitoring; Z79.01 Long term (current) use of anticoagulants
CPT/HCPCS: 85610

== ENCOUNTER → 2017-07-13 | Outpatient (REF) | payer MEDICARE, MEDICAID ==
[2017-07-13 18:15] LABS: INR 2.91; PROTHROMBIN TIME 31.7 SECONDS (12.4-14.5)
== END ==
LOC: M SFHCCAPE 09:37
DX: I25.10 Atherosclerotic heart disease of native coronary artery without angina pectoris (principal); Z51.81 Encounter for therapeutic drug level monitoring; Z79.01 Long term (current) use of anticoagulants
CPT/HCPCS: 85610

== ENCOUNTER 2017-07-26 18:20 | Emergency (ER) | payer MEDICARE, MEDICAID ==
[2017-07-26] MEDS ORDERED: MORPHINE 4 MG/ML 1ML VIAL/SYRINGE (J2270) As Ordered ×3 (18:36)
[2017-07-26 18:44] LABS: BASO # 0.1 10^3/uL (0.0-0.2); BASO % 0.5 % (0.0-1.0); EOS # 0.2 10^3/uL (0.0-0.50); EOS % 1.5 % (0.0-3.0); HEMATOCRIT 44.5 % (42.0-52.0); HEMOGLOBIN 14.9 g/dl (13.5-17.5); IMMATURE GRANULOCYTE % 0.3 % (0-3.0); LYMPH # 3.2 10^3/uL (1.5-4.5); LYMPH % 29.8 % (24.0-44.0); MEAN CORPUSCULAR HEMOGLOBIN 29.2 pg (27.0-33.0); MEAN CORPUSCULAR HGB CONC 33.5 g/dl (32.0-36.5); MEAN CORPUSCULAR VOLUME 87.3 fl (80.0-96.0); MONO # 0.8 10^3/uL (0.0-0.8); NEUTROPHILS # 6.3 10^3/uL (1.8-7.7); NEUTROPHILS % 59.9 % (36.0-66.0); PLATELET COUNT, AUTOMATED 219 10^3/uL (150-450); RED CELL DISTRIBUTION WIDTH 13.3 % (11.5-14.5); WHITE BLOOD COUNT 10.6 10^3/uL (4.0-10.0)
[2017-07-26] MEDS: MORPHINE 4 MG/ML 1ML VIAL/SYRINGE (J2270) IV ×6 (18:44→19:05)
[2017-07-26 18:53] LABS: INR 2.52; PROTHROMBIN TIME 28.2 SECONDS (12.4-14.5)
[2017-07-26] MEDS: NITROGLYCERIN 2% OINT 1 GM *U/D* PKT TOP ×3 (19:06)
[2017-07-26 19:10] LABS: ALBUMIN 3.8 GM/DL (3.2-5.2); ALKALINE PHOSPHATASE 104 U/L (45-117); ALT/SGPT 39 U/L (12-78); ANION GAP 5 MEQ/L (8-16); AST/SGOT 21 U/L (7-37); BILIRUBIN,DIRECT 0.1 MG/DL (0.0-0.2); BILIRUBIN,TOTAL 0.3 MG/DL (0.2-1.0); BLOOD UREA NITROGEN 13 MG/DL (7-18); CALCIUM LEVEL 8.8 MG/DL (8.5-10.1); CARBON DIOXIDE LEVEL 30 MEQ/L (21-32); CHLORIDE LEVEL 104 MEQ/L (98-107); CPK CREATINE PHOSPHOKINASE 104 U/L (39-308); CREATININE FOR GFR 1.16 MG/DL (0.70-1.30); GLOMERULAR FILTRATION RATE > 60.0 (>56); GLUCOSE, FASTING 136 MG/DL (70-100); LIPASE 125 U/L (73-393); POTASSIUM SERUM 4.3 MEQ/L (3.5-5.1); SODIUM LEVEL 139 MEQ/L (136-145); TROPONIN I < 0.02 NG/ML (< 0.10)
[2017-07-26 19:11] LABS: CK-MB VALUE MASS 1.6 NG/ML (<3.6); MB/CK RELATIVE INDEX 1.53 (< OR =4); NT-PRO BNP 11 PG/ML (<125)
[2017-07-26] MEDS: GI COCKTAIL 50ML BTL(HYOSCYAMINE/MAALOX/LIDOCAINE VISCOUS)(1:3:1) PO ×3 (19:15)
[2017-07-26] MEDS ORDERED: ISOVUE-370 76% 100ML VIAL (Q9967) As Ordered ×3 (19:17)
[2017-07-26] MEDS: NS 1,000 ML IV ×3 (19:22)
[2017-07-26] MEDS: LORazepam 2 MG/ML VIAL (J2060) IV ×3 (20:30)
[2017-07-26] MEDS: HYDROmorphone HCL 1 MG/ML SYRINGE (J1170) IV ×3 (21:01)
[2017-07-26 22:55] LABS: CK-MB VALUE MASS 1.8 NG/ML (<3.6); CPK CREATINE PHOSPHOKINASE 103 U/L (39-308); MB/CK RELATIVE INDEX 1.74 (< OR =4); TROPONIN I < 0.02 NG/ML (< 0.10)
== END 2017-07-26 23:56 | disposition home or self-care (01) ==
LOC: M ED 18:20
DX: R07.89 Other chest pain (principal); K22.4 Dyskinesia of esophagus; R00.0 Tachycardia, unspecified; N28.1 Cyst of kidney, acquired; E11.9 Type 2 diabetes mellitus without complications; I10 Essential (primary) hypertension; E78.5 Hyperlipidemia, unspecified; J44.9 Chronic obstructive pulmonary disease, unspecified; K21.9 Gastro-esophageal reflux disease without esophagitis; I27.20 Pulmonary hypertension, unspecified; F17.200 Nicotine dependence, unspecified, uncomplicated; Z79.82 Long term (current) use of aspirin; Z79.4 Long term (current) use of insulin; Z79.01 Long term (current) use of anticoagulants; Z79.899 Other long term (current) drug therapy; Z88.8 Allergy status to other drugs, medicaments and biological substances
CPT/HCPCS: J1170

== ENCOUNTER → 2017-07-28 | Outpatient (REF) | payer MEDICARE, MEDICAID ==
[2017-07-28 16:37] LABS: INR 1.49; PROTHROMBIN TIME 18.4 SECONDS (12.4-14.5)
== END ==
LOC: M SFHCCAPE 09:31
DX: I25.10 Atherosclerotic heart disease of native coronary artery without angina pectoris (principal)
CPT/HCPCS: 85610

== ENCOUNTER → 2017-08-03 | Outpatient (REF) | payer MEDICARE, MEDICAID ==
[2017-08-03 17:57] LABS: INR 2.59; PROTHROMBIN TIME 28.8 SECONDS (12.4-14.5)
== END ==
LOC: M SFHCCAPE 07:31
DX: I25.10 Atherosclerotic heart disease of native coronary artery without angina pectoris (principal); Z51.81 Encounter for therapeutic drug level monitoring; Z79.01 Long term (current) use of anticoagulants
CPT/HCPCS: 85610

== ENCOUNTER → 2017-08-18 | Outpatient (REF) | payer MEDICARE, MEDICAID ==
[2017-08-18 17:38] LABS: INR 2.53; PROTHROMBIN TIME 28.3 SECONDS (12.4-14.5)
== END ==
LOC: M SFHCCAPE 07:38
DX: Z51.81 Encounter for therapeutic drug level monitoring (principal); Z79.01 Long term (current) use of anticoagulants
CPT/HCPCS: 85610

== ENCOUNTER → 2017-08-30 | Outpatient (REF) | payer MEDICARE, MEDICAID ==
[2017-08-30 18:47] LABS: INR 2.97; PROTHROMBIN TIME 32.2 SECONDS (12.4-14.5)
== END ==
LOC: M SFHCCAPE 07:37
DX: Z51.81 Encounter for therapeutic drug level monitoring (principal); Z79.01 Long term (current) use of anticoagulants
CPT/HCPCS: 85610

== ENCOUNTER → 2017-09-21 | Outpatient (REF) | payer MEDICARE, MEDICAID ==
[2017-09-21 16:57] LABS: INR 4.78; PROTHROMBIN TIME 47.5 SECONDS (12.4-14.5)
== END ==
LOC: M SFHCCAPE 07:48
DX: Z51.81 Encounter for therapeutic drug level monitoring (principal); Z79.01 Long term (current) use of anticoagulants; Z86.718 Personal history of other venous thrombosis and embolism
CPT/HCPCS: 85610

== ENCOUNTER → 2017-09-26 | Outpatient (REF) | payer OTHER, MEDICAID ==
[2017-09-26 17:14] LABS: INR 1.26
== END ==
LOC: M SFHCCAPE 08:03
DX: I25.10 Atherosclerotic heart disease of native coronary artery without angina pectoris (principal); Z51.81 Encounter for therapeutic drug level monitoring; Z79.01 Long term (current) use of anticoagulants
CPT/HCPCS: 85610

== ENCOUNTER → 2017-10-03 | Outpatient (REF) | payer OTHER, MEDICAID ==
[2017-10-03 19:00] LABS: ESTIMATED AVERAGE GLUCOSE 174 MG/DL (60-110); FOLATE 10.8 NG/ML; HEMOGLOBIN A1c 7.7 %; TOTAL 25(OH) VITAMIN D 26.2 NG/ML (30.0-100.0); VITAMIN B12 LEVEL 683 PG/ML
[2017-10-03 19:06] LABS: FREE T4 1.02 NG/DL (0.76-1.46); RHEUMATOID FACTOR QUANT < 10.0 IU/ML (<15.0); THYROID STIMULATING HORMONE 0.593 uIU/ML (0.358-3.740)
[2017-10-03 21:58] LABS: ERYTHROCYTE SEDIMENTATION RATE 17 mm/hr (0-20)
[2017-10-07 08:48] LABS: ANTINUCLEAR ANTIBODIES DIRECT Negative (Negative); Methylmalonic Acid 162 nmol/L (0-378)
[2017-10-07 08:48] LABS: VITAMIN B1 LEVEL WHOLE BLOOD 257.7 nmol/L (66.5-200.0)
== END ==
LOC: M LABDRWCV 16:29
DX: E11.9 Type 2 diabetes mellitus without complications (principal); E07.9 Disorder of thyroid, unspecified; E55.9 Vitamin D deficiency, unspecified; R20.9 Unspecified disturbances of skin sensation; Z79.4 Long term (current) use of insulin; Z79.899 Other long term (current) drug therapy; Z86.718 Personal history of other venous thrombosis and embolism
CPT/HCPCS: 82746

== ENCOUNTER → 2017-10-03 | Outpatient (REF) | payer OTHER, MEDICAID ==
[2017-10-03 19:31] LABS: INR 2.68; PROTHROMBIN TIME 29.6 SECONDS (12.4-14.5)
== END ==
LOC: M SFHCCAPE 09:29
DX: Z51.81 Encounter for therapeutic drug level monitoring (principal); Z79.01 Long term (current) use of anticoagulants; Z86.718 Personal history of other venous thrombosis and embolism
CPT/HCPCS: 85610

== ENCOUNTER → 2017-10-10 | Outpatient (REF) | payer OTHER, MEDICAID ==
[2017-10-10 20:01] LABS: BASO % 0.3 % (0.0-1.0); EOS # 0.1 10^3/uL (0.0-0.50); EOS % 1.4 % (0.0-3.0); HEMATOCRIT 41.6 % (42.0-52.0); HEMOGLOBIN 14.1 g/dl (13.5-17.5); IMMATURE GRANULOCYTE % 0.2 % (0-3.0); LYMPH # 2.5 10^3/uL (1.5-4.5); MEAN CORPUSCULAR HEMOGLOBIN 29.8 pg (27.0-33.0); MEAN CORPUSCULAR HGB CONC 33.9 g/dl (32.0-36.5); MEAN CORPUSCULAR VOLUME 87.9 fl (80.0-96.0); MONO # 0.7 10^3/uL (0.0-0.8); MONO % 8.1 % (0.0-5.0); NEUTROPHILS # 5.6 10^3/uL (1.8-7.7); PLATELET COUNT, AUTOMATED 187 10^3/uL (150-450); RED BLOOD COUNT 4.73 10^6/uL (4.30-6.10); RED CELL DISTRIBUTION WIDTH 13.7 % (11.5-14.5)
[2017-10-10 20:11] LABS: ESTIMATED AVERAGE GLUCOSE 174 MG/DL (60-110); HEMOGLOBIN A1c 7.7 %
[2017-10-10 20:12] LABS: INR 3.51
[2017-10-10 20:17] LABS: ALBUMIN 3.8 GM/DL (3.2-5.2); ALBUMIN/GLOBULIN RATIO 1.09 (1.00-1.93); ALKALINE PHOSPHATASE 115 U/L (45-117); ALT/SGPT 47 U/L (12-78); ANION GAP 12 MEQ/L (8-16); AST/SGOT 26 U/L (7-37); BILIRUBIN,TOTAL 0.3 MG/DL (0.2-1.0); BLOOD UREA NITROGEN 15 MG/DL (7-18); CALCIUM LEVEL 8.3 MG/DL (8.5-10.1); CARBON DIOXIDE LEVEL 26 MEQ/L (21-32); CHLORIDE LEVEL 103 MEQ/L (98-107); CHOLESTEROL LEVEL 107 MG/DL (<200); CHOLESTEROL RISK RATIO 2.609 (<5); CREATININE FOR GFR 0.97 MG/DL (0.70-1.30); GLOMERULAR FILTRATION RATE > 60.0 (>56); GLUCOSE, FASTING 104 MG/DL (70-100); HDL CHOLESTEROL 41 MG/DL (>40); NON-HDL-C 66 MG/DL; POTASSIUM SERUM 4.4 MEQ/L (3.5-5.1); SODIUM LEVEL 141 MEQ/L (136-145); THYROID STIMULATING HORMONE 0.775 uIU/ML (0.358-3.740); TOTAL PROTEIN 7.3 GM/DL (6.4-8.2); TRIGLYCERIDES LEVEL 140 MG/DL (<150)
== END ==
LOC: M SFHCCAPE 12:00
DX: E11.8 Type 2 diabetes mellitus with unspecified complications (principal); Z51.81 Encounter for therapeutic drug level monitoring; Z79.01 Long term (current) use of anticoagulants
CPT/HCPCS: 84443

== ENCOUNTER → 2017-10-17 | Outpatient (REF) | payer OTHER, MEDICAID ==
[2017-10-17 18:03] LABS: INR 2.37; PROTHROMBIN TIME 26.4 SECONDS (12.1-14.4)
== END ==
LOC: M SFHCCAPE 07:37
DX: I25.10 Atherosclerotic heart disease of native coronary artery without angina pectoris (principal)
CPT/HCPCS: 85610

== ENCOUNTER 2017-10-27 10:19 | Day surgery (SDC) | payer MEDICARE, MEDICAID ==
[2017-10-27] MEDS: NS 1,000 ML IV (10:45)
[2017-10-27 11:47] LABS: BEDSIDE GLUCOSE 156 MG/DL (70-105)
[2017-10-27] MEDS ORDERED: PROPOFOL 200 MG/20 ML VIAL As Ordered (13:04)
[2017-10-27] MEDS ORDERED: fentaNYL 100 MCG/2 ML INJECTION (J3010) As Ordered (13:04)
[2017-10-27] MEDS ORDERED: ONDANSETRON 4MG/2ML VIAL (J2405) As Ordered (13:04)
[2017-10-27] MEDS ORDERED: LIDOCAINE 2% INJ 100 MG/5 ML SDV (FOR ANES.) As Ordered (13:04)
[2017-10-27 13:24] LABS: BEDSIDE GLUCOSE 106 MG/DL (70-105)
== END 2017-10-27 13:41 | disposition home or self-care (01) ==
LOC: M OPP 10:19
DX: K25.9 Gastric ulcer, unspecified as acute or chronic, without hemorrhage or perforation (principal); K29.80 Duodenitis without bleeding; R13.10 Dysphagia, unspecified; I10 Essential (primary) hypertension; E78.00 Pure hypercholesterolemia, unspecified; E10.9 Type 1 diabetes mellitus without complications; K21.9 Gastro-esophageal reflux disease without esophagitis; G47.30 Sleep apnea, unspecified; F41.9 Anxiety disorder, unspecified; F32.9 Major depressive disorder, single episode, unspecified; J44.9 Chronic obstructive pulmonary disease, unspecified; N41.1 Chronic prostatitis; K58.9 Irritable bowel syndrome, unspecified; G57.91 Unspecified mononeuropathy of right lower limb; G57.92 Unspecified mononeuropathy of left lower limb; I25.10 Atherosclerotic heart disease of native coronary artery without angina pectoris; Z79.4 Long term (current) use of insulin; Z79.01 Long term (current) use of anticoagulants; Z79.82 Long term (current) use of aspirin; Z79.899 Other long term (current) drug therapy; Z88.8 Allergy status to other drugs, medicaments and biological substances; Z87.891 Personal history of nicotine dependence; Z86.010 Personal history of colon polyps; Z87.442 Personal history of urinary calculi; Z98.61 Coronary angioplasty status; Z98.890 Other specified postprocedural states; Z86.711 Personal history of pulmonary embolism
CPT/HCPCS: 43249

== ENCOUNTER → 2017-11-07 | Outpatient (REF) | payer OTHER, MEDICAID ==
[2017-11-07 17:04] LABS: INR 2.73; PROTHROMBIN TIME 29.6 SECONDS (12.1-14.4)
== END ==
LOC: M SFHCCAPE 07:49
DX: I25.10 Atherosclerotic heart disease of native coronary artery without angina pectoris (principal)
CPT/HCPCS: 85610

== ENCOUNTER → 2017-11-10 | Outpatient (CLI) | payer MEDICARE, MEDICAID | LOC: M SLEEP 19:42 | DX: G47.33 Obstructive sleep apnea (adult) (pediatric) (principal) | CPT/HCPCS: 95811 ==

== ENCOUNTER → 2017-12-05 | Outpatient (CLI) | payer MEDICARE, MEDICAID | LOC: M RAD 10:15 | DX: Z12.2 Encounter for screening for malignant neoplasm of respiratory organs (principal); Z87.891 Personal history of nicotine dependence; I25.10 Atherosclerotic heart disease of native coronary artery without angina pectoris; Z51.81 Encounter for therapeutic drug level monitoring; Z79.01 Long term (current) use of anticoagulants | CPT/HCPCS: G0297 ==

== ENCOUNTER → 2017-12-05 | Outpatient (REF) | payer MEDICARE, MEDICAID, OTHER ==
[2017-12-05 19:50] LABS: INR 2.82; PROTHROMBIN TIME 30.3 SECONDS (12.1-14.4)
== END ==
LOC: M SFHCCAPE 08:21
DX: I25.10 Atherosclerotic heart disease of native coronary artery without angina pectoris (principal); Z51.81 Encounter for therapeutic drug level monitoring; Z79.01 Long term (current) use of anticoagulants
CPT/HCPCS: 85610

== ENCOUNTER → 2018-01-02 | Outpatient (REF) | payer OTHER, MEDICAID ==
[2018-01-02 17:43] LABS: INR 3.41; PROTHROMBIN TIME 35.2 SECONDS (12.1-14.4)
== END ==
LOC: M SFHCCAPE 07:26
DX: I25.10 Atherosclerotic heart disease of native coronary artery without angina pectoris (principal); Z51.81 Encounter for therapeutic drug level monitoring; Z79.01 Long term (current) use of anticoagulants
CPT/HCPCS: 85610

== ENCOUNTER → 2018-02-17 | Outpatient (REF) | payer MEDICARE, MEDICAID ==
[2018-02-17 13:37] LABS: APPEARANCE, URINE CLEAR (CLEAR); BACTERIA, URINE AUTO 1+ (NEGATIVE); BILIRUBIN, URINE AUTO NEGATIVE (NEGATIVE); BLOOD, URINE BLOOD NEGATIVE (NEGATIVE); COLOR, URINE STRAW (YELLOW); GLUCOSE, URINE (UA) AUTO NEGATIVE (NEGATIVE); KETONE, URINE AUTO NEGATIVE (NEGATIVE); LEUKOCYTE ESTERASE, URINE AUTO NEGATIVE (NEGATIVE); NITRITE, URINE AUTO NEGATIVE (NEGATIVE); PROTEIN, URINE AUTO NEGATIVE (NEGATIVE); RBC, URINE AUTO 1 /HPF (0-3); SPECIFIC GRAVITY URINE AUTO 1.005 (1.002-1.035); SQUAMOUS EPITHELIAL CELL UR AU 0 /HPF (0-6); UROBILINOGEN, URINE AUTO 0.2 mg/dL (0.0-2.0); WBC, URINE AUTO 0 /HPF (0-3)
== END ==
LOC: M SMT 13:02
DX: R35.0 Frequency of micturition (principal); D41.4 Neoplasm of uncertain behavior of bladder
CPT/HCPCS: 81001

== ENCOUNTER → 2018-02-22 | Outpatient (REF) | payer MEDICARE, MEDICAID ==
[2018-02-22 16:53] LABS: PSA SCREENING 0.2 NG/ML (< 4.0)
[2018-02-22 17:59] LABS: INR 2.63; PROTHROMBIN TIME 28.7 SECONDS (12.1-14.4)
== END ==
LOC: M LABSMT 07:15
DX: I25.10 Atherosclerotic heart disease of native coronary artery without angina pectoris (principal); Z51.81 Encounter for therapeutic drug level monitoring; Z79.01 Long term (current) use of anticoagulants; Z12.5 Encounter for screening for malignant neoplasm of prostate
CPT/HCPCS: G0103

== ENCOUNTER 2018-03-05 10:54 | Emergency (ER) | payer MEDICARE, MEDICAID ==
[2018-03-05 11:14] LABS: BASO # 0.1 10^3/uL (0.0-0.2); BASO % 0.6 % (0.0-1.0); EOS # 0.1 10^3/uL (0.0-0.50); EOS % 1.3 % (0.0-3.0); HEMATOCRIT 44.8 % (42.0-52.0); HEMOGLOBIN 15.1 g/dl (13.5-17.5); IMMATURE GRANULOCYTE % 0.3 % (0-3.0); LYMPH # 2.1 10^3/uL (1.5-4.5); LYMPH % 26.8 % (24.0-44.0); MEAN CORPUSCULAR HEMOGLOBIN 30.1 pg (27.0-33.0); MEAN CORPUSCULAR HGB CONC 33.7 g/dl (32.0-36.5); MEAN CORPUSCULAR VOLUME 89.4 fl (80.0-96.0); MONO # 0.5 10^3/uL (0.0-0.8); PLATELET COUNT, AUTOMATED 203 10^3/uL (150-450); RED BLOOD COUNT 5.01 10^6/uL (4.30-6.10); RED CELL DISTRIBUTION WIDTH 13.1 % (11.5-14.5); WHITE BLOOD COUNT 7.8 10^3/uL (4.0-10.0)
[2018-03-05 11:29] LABS: INR 1.46; PROTHROMBIN TIME 17.9 SECONDS (12.1-14.4)
[2018-03-05 11:30] LABS: PARTIAL THROMBOPLASTIN TIME 30.8 SECONDS (25.4-37.6)
[2018-03-05 11:47] LABS: ANION GAP 7 MEQ/L (8-16); BLOOD UREA NITROGEN 15 MG/DL (7-18); CALCIUM LEVEL 8.2 MG/DL (8.5-10.1); CARBON DIOXIDE LEVEL 26 MEQ/L (21-32); CHLORIDE LEVEL 104 MEQ/L (98-107); CPK CREATINE PHOSPHOKINASE 141 U/L (39-308); CREATININE FOR GFR 1.08 MG/DL (0.70-1.30); GLOMERULAR FILTRATION RATE > 60.0 (>56); GLUCOSE, FASTING 238 MG/DL (70-100); MB/CK RELATIVE INDEX 1.91 (< OR =4); POTASSIUM SERUM 4.3 MEQ/L (3.5-5.1); SODIUM LEVEL 137 MEQ/L (136-145); TROPONIN I < 0.02 NG/ML (< 0.10)
[2018-03-05] MEDS: GI COCKTAIL 50ML BTL(HYOSCYAMINE/MAALOX/LIDOCAINE VISCOUS)(1:3:1) PO (12:15)
[2018-03-05] MEDS: MORPHINE 2 MG/ML 1ML SYRINGE (J2270) IV ×2 (12:16→12:39)
[2018-03-05] MEDS ORDERED: ISOVUE-370 76% 100ML VIAL (Q9967) As Ordered (13:27)
[2018-03-05] MEDS: NS 1,000 ML IV (14:00)
[2018-03-05] MEDS: KETOROLAC 30 MG/ML VIAL (J1885) IV (15:31)
[2018-03-05 15:41] LABS: CPK CREATINE PHOSPHOKINASE 132 U/L (39-308); MB/CK RELATIVE INDEX 1.67 (< OR =4); TROPONIN I < 0.02 NG/ML (< 0.10)
[2018-03-05] MEDS: HYDROMORPHONE HCL 0.5 MG/ 0.5 ML SYRINGE (J1170 PER 1) IV (16:18)
[2018-03-05] MEDS: HYDROMORPHONE HCL 0.5 MG/ 0.5 ML SYRINGE (J1170 PER 1) SQ (16:23)
== END 2018-03-05 16:46 | disposition home or self-care (01) ==
LOC: M ED 10:54
DX: R07.89 Other chest pain (principal); K22.4 Dyskinesia of esophagus; I11.0 Hypertensive heart disease with heart failure; I50.9 Heart failure, unspecified; E11.9 Type 2 diabetes mellitus without complications; E78.5 Hyperlipidemia, unspecified; J44.9 Chronic obstructive pulmonary disease, unspecified; G47.33 Obstructive sleep apnea (adult) (pediatric); K21.9 Gastro-esophageal reflux disease without esophagitis
CPT/HCPCS: Q9967

== ENCOUNTER → 2018-03-08 | Outpatient (REF) | payer MEDICARE, MEDICAID ==
[2018-03-08 18:13] LABS: BASO % 0.4 % (0.0-1.0); EOS # 0.1 10^3/uL (0.0-0.50); EOS % 1.1 % (0.0-3.0); HEMATOCRIT 44.9 % (42.0-52.0); IMMATURE GRANULOCYTE % 0.2 % (0-3.0); LYMPH # 1.6 10^3/uL (1.5-4.5); LYMPH % 17.8 % (24.0-44.0); MEAN CORPUSCULAR HEMOGLOBIN 29.9 pg (27.0-33.0); MEAN CORPUSCULAR HGB CONC 33.4 g/dl (32.0-36.5); MEAN CORPUSCULAR VOLUME 89.6 fl (80.0-96.0); MONO # 0.6 10^3/uL (0.0-0.8); MONO % 7.1 % (0.0-5.0); NEUTROPHILS # 6.6 10^3/uL (1.8-7.7); NEUTROPHILS % 73.4 % (36.0-66.0); PLATELET COUNT, AUTOMATED 214 10^3/uL (150-450); RED BLOOD COUNT 5.01 10^6/uL (4.30-6.10); RED CELL DISTRIBUTION WIDTH 13.3 % (11.5-14.5)
[2018-03-08 18:24] LABS: INR 1.02; PROTHROMBIN TIME 13.5 SECONDS (12.1-14.4)
[2018-03-08 18:26] LABS: ESTIMATED AVERAGE GLUCOSE 169 MG/DL (60-110); HEMOGLOBIN A1c 7.5 %
[2018-03-08 18:28] LABS: ALBUMIN 3.8 GM/DL (3.2-5.2); ALBUMIN/GLOBULIN RATIO 1.12 (1.00-1.93); ALKALINE PHOSPHATASE 102 U/L (45-117); ALT/SGPT 39 U/L (12-78); ANION GAP 10 MEQ/L (8-16); AST/SGOT 21 U/L (7-37); BILIRUBIN,TOTAL 0.3 MG/DL (0.2-1.0); BLOOD UREA NITROGEN 19 MG/DL (7-18); CALCIUM LEVEL 8.1 MG/DL (8.5-10.1); CARBON DIOXIDE LEVEL 23 MEQ/L (21-32); CHLORIDE LEVEL 106 MEQ/L (98-107); CHOLESTEROL LEVEL 111 MG/DL (<200); CHOLESTEROL RISK RATIO 2.642 (<5); CREATININE FOR GFR 1.04 MG/DL (0.70-1.30); GLOMERULAR FILTRATION RATE > 60.0 (>56); GLUCOSE, FASTING 156 MG/DL (70-100); HDL CHOLESTEROL 42 MG/DL (>40); LDL CHOLESTEROL 54 MG/DL (<100); NON-HDL-C 69 MG/DL; POTASSIUM SERUM 4.8 MEQ/L (3.5-5.1); SODIUM LEVEL 139 MEQ/L (136-145); THYROID STIMULATING HORMONE 0.646 uIU/ML (0.358-3.740); TOTAL PROTEIN 7.2 GM/DL (6.4-8.2); TRIGLYCERIDES LEVEL 74 MG/DL (<150)
[2018-03-08 18:29] LABS: MALB URINE SIEMENS 6.8 MG/L; MAU/CREAT RATIO 8.1 MCG/MG (0.0-30.0)
== END ==
LOC: M SFHCCAPE 08:20
DX: E11.8 Type 2 diabetes mellitus with unspecified complications (principal); I25.10 Atherosclerotic heart disease of native coronary artery without angina pectoris; Z51.81 Encounter for therapeutic drug level monitoring; Z79.01 Long term (current) use of anticoagulants; Z86.718 Personal history of other venous thrombosis and embolism
CPT/HCPCS: 84443

== ENCOUNTER → 2018-03-08 | Outpatient (REF) | payer MEDICARE, MEDICAID ==
[~2018-03-08] MED LIST changes: +ALBU17IN2 INH; +ASPI1TAB PO; +ATEN50TA2 PO; +ATOR40TA75 PO; +BACL10TA2 PO; +BUPR150T3 PO; +BUPR1TAB53 PO; +BUPR300T34 PO; +BYDU1INJ SC; +CALC600T57 PO; +CETI10CH PO; +COUM10TA PO; +COUM1TAB17 PO; +COUM2TAB22 PO; +DILA2TAB6 PO; +DILT180C28 PO; +DILT180C74 PO; +DOK100TA; +FAMO20TA PO; +GABA-1171 PO; +GABA-843 PO; -GASTROGRAFIN SOLUTION 30ML (Q9963) As Ordered; +GLUC1CAP10 PO; +HAIR1TAB5 PO; +INCR1INH IN; +INSUH10VL SC; +INSUHUMDS SC; -ISOVUE-370 76% 100ML VIAL (Q9967) As Ordered; +LANTINJ4 SC; +LORA1TAB12 PO; +LYRI75CA PO; +MAGN250T9 PO; +MELA5TAB20 PO; +METF10004 PO; +MONT10TA2 PO; +MULT1TAB9 PO; +NEUR300C PO; +NEUR600T PO; +OMEP40CA2 PO; +OXYC1TAB16 PO; +OXYC1TAB23 PO; +PANT40TA3 PO; +PRESCAP PO; +PRIL20CA9 PO; +RABE1TAB PO; +RANI150T PO; +RANI15TA PO; +ROBA500T PO; +SERT-138 PO; +SUCR1TAB56 PO; +TRAZ1TAB14 PO; +UMECLIDINIUM INH; +VARE1TA PO; +VITA500C24 PO; +VITATAB11 PO; +WARF05TA PO; +WARF4TAB52 PO; +XANA0.5T PO
[2018-03-08 18:20] LABS: BASO % 0.5 % (0.0-1.0); BLOOD UREA NITROGEN 19 MG/DL (7-18); CALCIUM LEVEL 8.4 MG/DL (8.5-10.1); CARBON DIOXIDE LEVEL 25 MEQ/L (21-32); CHLORIDE LEVEL 106 MEQ/L (98-107); CREATININE FOR GFR 1.05 MG/DL (0.70-1.30); EOS # 0.1 10^3/uL (0.0-0.50); GLOMERULAR FILTRATION RATE > 60.0 (>56); GLUCOSE, FASTING 161 MG/DL (70-100); HEMATOCRIT 44.9 % (42.0-52.0); HEMOGLOBIN 15.3 g/dl (13.5-17.5); LYMPH # 1.6 10^3/uL (1.5-4.5); MEAN CORPUSCULAR HEMOGLOBIN 30.9 pg (27.0-33.0); MEAN CORPUSCULAR HGB CONC 34.1 g/dl (32.0-36.5); MEAN CORPUSCULAR VOLUME 90.7 fl (80.0-96.0); MONO # 0.6 10^3/uL (0.0-0.8); MONO % 6.8 % (0.0-5.0); NEUTROPHILS # 6.5 10^3/uL (1.8-7.7); NEUTROPHILS % 73.5 % (36.0-66.0); PLATELET COUNT, AUTOMATED 210 10^3/uL (150-450); POTASSIUM SERUM 4.8 MEQ/L (3.5-5.1); RED BLOOD COUNT 4.95 10^6/uL (4.30-6.10); SODIUM LEVEL 138 MEQ/L (136-145); WHITE BLOOD COUNT 8.8 10^3/uL (4.0-10.0)
== END ==
LOC: M LABDRWCV 16:50
PROVIDERS: ATTEND Internal Medicine Cardiovascular Disease
DX: Z01.818 Encounter for other preprocedural examination (principal); I25.10 Atherosclerotic heart disease of native coronary artery without angina pectoris; I10 Essential (primary) hypertension; E78.5 Hyperlipidemia, unspecified
CPT/HCPCS: 36415; 80053; 80061; 82043; 83036; 84443; 85025; 85610; G0463

== ENCOUNTER → 2018-03-13 | Outpatient (CLI) | payer MEDICARE, MEDICAID | LOC: M RAD 12:27 | DX: M25.512 Pain in left shoulder (principal) | CPT/HCPCS: 73030 ==

== ENCOUNTER → 2018-03-28 | Outpatient (REF) | payer MEDICARE, MEDICAID ==
[~2018-03-28] MED LIST changes: +OXYC10TA3 PO; -OXYC1TAB16 PO
[2018-03-28 17:33] LABS: INR 2.55
== END ==
LOC: M SFHCCAPE 08:14
PROVIDERS: ATTEND Physician Assistant
DX: I25.10 Atherosclerotic heart disease of native coronary artery without angina pectoris (principal)

== ENCOUNTER → 2018-04-25 | Outpatient (REF) | payer MEDICARE, MEDICAID ==
[~2018-04-25] MED LIST changes: +AUGM875T28 PO; +BACT800T5 PO; +DOXY-350 PO; +MELA10CA PO; +PATIENT COMMENTS; +WARF-22 PO; +[UNRECOGNIZED DRUG - CODE] PO
== END ==
LOC: M SMT 13:27
PROVIDERS: ATTEND Urology Pediatric Urology
DX: D41.4 Neoplasm of uncertain behavior of bladder (principal); R30.0 Dysuria

== ENCOUNTER 2018-04-28 17:42 | Inpatient (IN) | payer MEDICARE, MEDICAID ==
[~2018-04-28] VITALS: Ht 190.5 cm; Wt 125.4 kg
[~2018-04-28 17:42] MED LIST changes: -AUGM875T28 PO; -BACT800T5 PO; -DOXY-350 PO; -MELA10CA PO; -PATIENT COMMENTS; -WARF-22 PO; -[UNRECOGNIZED DRUG - CODE] PO
[2018-04-28] MEDS ORDERED: HYDROmorphone 2 MG TAB PO ONE (18:30)
[2018-04-28] MEDS ORDERED: diazePAM 10 MG TAB PO ONE (18:45)
[2018-04-28] MEDS ORDERED: fentaNYL 100 MCG/2 ML INJECTION (J3010) IM ONE (18:45)
[2018-04-28 19:41] LABS: BASO # 0.1 10^3/uL (0.0-0.2); BASO % 0.3 % (0.0-1.0); EOS % 0.2 % (0.0-3.0); HEMOGLOBIN 14.6 g/dl (13.5-17.5); LYMPH # 1.6 10^3/uL (1.5-4.5); LYMPH % 10.5 % (24.0-44.0); MEAN CORPUSCULAR HEMOGLOBIN 30.4 pg (27.0-33.0); MEAN CORPUSCULAR HGB CONC 34.8 g/dl (32.0-36.5); MEAN CORPUSCULAR VOLUME 87.3 fl (80.0-96.0); MONO # 1.3 10^3/uL (0.0-0.8); MONO % 8.7 % (0.0-5.0); NEUTROPHILS # 12.3 10^3/uL (1.8-7.7); NEUTROPHILS % 79.9 % (36.0-66.0); PLATELET COUNT, AUTOMATED 208 10^3/uL (150-450); RED BLOOD COUNT 4.81 10^6/uL (4.30-6.10); WHITE BLOOD COUNT 15.4 10^3/uL (4.0-10.0)
[2018-04-28] MEDS ORDERED: HYDROMORPHONE HCL 0.5 MG/ 0.5 ML SYRINGE (J1170 PER 1) IV ONE ×2 (19:45→22:15)
--- NOTE | 2018-04-28 19:51 | REP ---
RIGHT KNEE, COMPLETE: 04/28/2018. Clinical history: Pain with ambulation. Findings: Four views are provided. No sunrise view obtained. Spurs in the tibial spines, inferior patellar margin are noted representing some mild degenerative osteoarthritic change. There is no loose body, osteochondral defect, fracture or definite effusion. Proximal tibia and fibula and the distal femur show no fracture or focal lesion. Patella without gross subluxation, dislocation or other acute finding. There is some prepatellar soft tissue swelling noted on the lateral view. Impression: 1. Some minor degenerative changes and prepatellar soft tissue swelling without joint space narrowing, fracture, any definite effusion, loose body or osteochondral lesion. No avulsion. Electronically Signed by Dylan Kaplan MD 04/29/2018 09:10 A
[2018-04-28 20:09] LABS: BLOOD UREA NITROGEN 14 MG/DL (7-18); CALCIUM LEVEL 8.3 MG/DL (8.5-10.1); CARBON DIOXIDE LEVEL 29 MEQ/L (21-32); CHLORIDE LEVEL 99 MEQ/L (98-107); CPK CREATINE PHOSPHOKINASE 162 U/L (39-308); CREATININE FOR GFR 1.06 MG/DL (0.70-1.30); GLOMERULAR FILTRATION RATE > 60.0 (>56); GLUCOSE, FASTING 140 MG/DL (70-100); MB/CK RELATIVE INDEX 1.36 (< OR =4); POTASSIUM SERUM 4.1 MEQ/L (3.5-5.1); SODIUM LEVEL 135 MEQ/L (136-145); TROPONIN I < 0.02 NG/ML (< 0.10)
--- NOTE | 2018-04-28 20:33 | REP ---
AP LATERAL CHEST: 04/28/2018. Comparison: AP portable and CT angiogram chest 03/05/2018. Clinical history: Chest pain, left arm pain. AP view as lordotic projection limiting evaluation of posterior lower lung zones but that area is seen on the lateral chest. No gross effusion or infiltrate. Heart not grossly enlarged. The aorta and airway intact. No widening of the mediastinum. Bones show some minor degenerative changes. Impression: 1. No acute cardiopulmonary change. Stable chest from previous examinations in February 2018. Electronically Signed by Dylan Kaplan MD 04/29/2018 09:08 A
[2018-04-28] MEDS ORDERED: ISOVUE-370 76% 100ML VIAL (Q9967) As Ordered ONE (21:08)
[2018-04-28] MEDS ORDERED: ACETAMINOPHEN 325 MG TAB PO ONE (21:45)
[2018-04-28] MEDS ORDERED: NS 1,000 ML IV ONE ×2 (21:45→22:15)
--- NOTE | 2018-04-28 22:25 | REPVR ---
EXAM: CT Angiography Chest With Contrast EXAM DATE/TIME: 04/28/18 (9:19pm) CLINICAL HISTORY: 57 year old male with SOB, tachycardia, and chest pain TECHNIQUE: Axial computed tomographic angiography images of the chest with intravenous contrast using CT angiography protocol. All CT scans at this facility use at least one of these dose optimization techniques: automated exposure control; mA and/or kV adjustment per patient size (includes targeted exams where dose is matched to clinical indication); or iterative reconstruction. Coronal and sagittal reformatted images were created and reviewed. MIP reconstructed images were created and reviewed. CONTRAST: 75 ml of Isovue 370 administered intravenously COMPARISON: CTA CHEST of 03/05/18 FINDINGS: Pulmonary arteries: No definite pulmonary emboli. Some misregistration artifacts makes full evaluation difficult. Aorta: Normal. No aortic aneurysm. No aortic dissection. Lungs: Normal. No consolidation nor masses. Small upper lobe bullae. Pleural space: Normal. No pneumothorax. No pleural effusions. Heart: Normal. No cardiomegaly. No pericardial effusion. Lymph nodes: Unremarkable. No enlarged lymph nodes. Bones/joints: Unremarkable. No acute fracture. Soft tissues: Unremarkable. Upper abdomen: Diffuse fatty infiltration of the liver. Distended gallbladder (not fully imaged). IMPRESSION: No acute findings. No definite pulmonary emboli. No focal infiltrates and no pleural effusions. Electronically signed by: Jenni Morales On 04/28/2018 22:24:55 PM
[2018-04-28 22:30] LABS: APPEARANCE, URINE CLEAR (CLEAR); BACTERIA, URINE AUTO NEGATIVE (NEGATIVE); BILIRUBIN, URINE AUTO NEGATIVE (NEGATIVE); BLOOD, URINE BLOOD NEGATIVE (NEGATIVE); COLOR, URINE YELLOW (YELLOW); GLUCOSE, URINE (UA) AUTO NEGATIVE (NEGATIVE); KETONE, URINE AUTO NEGATIVE (NEGATIVE); LEUKOCYTE ESTERASE, URINE AUTO NEGATIVE (NEGATIVE); NITRITE, URINE AUTO NEGATIVE (NEGATIVE); PROTEIN, URINE AUTO NEGATIVE (NEGATIVE); RBC, URINE AUTO 3 /HPF (0-3); SPECIFIC GRAVITY URINE AUTO 1.016 (1.002-1.035); SQUAMOUS EPITHELIAL CELL UR AU 0 /HPF (0-6); UROBILINOGEN, URINE AUTO 0.2 mg/dL (0.0-2.0); WBC, URINE AUTO 0 /HPF (0-3)
[2018-04-28 22:50] LABS: INFLUENZA A AMPLIFICATION NEGATIVE (NEGATIVE); INFLUENZA B AMPLIFICATION NEGATIVE (NEGATIVE)
[2018-04-29] MEDS ORDERED: HumaLOG INSULIN (NovoLOG) PER UNIT SC SCH
[2018-04-29] MEDS ORDERED: PIPERACILLIN/TAZOBACTAM SOD 3.375 GM in D5W MINI-BAG PLUS 50 ML IV ONE ×2
[2018-04-29] MEDS ORDERED: fentaNYL 100 MCG/2 ML INJECTION (J3010) IV ONE (00:30)
[2018-04-29] MEDS ORDERED: WARF4TAB52 PO (01:03)
[2018-04-29] MEDS ORDERED: MELA10CA PO (01:03)
[2018-04-29] MEDS ORDERED: WARF-22 PO (01:03)
[2018-04-29] MEDS ORDERED: SUCR1TAB56 PO (01:04)
[2018-04-29] MEDS ORDERED: [UNRECOGNIZED DRUG - CODE] PO (01:06)
[2018-04-29] MEDS ORDERED: PATIENT COMMENTS (01:10)
[2018-04-29] MEDS ORDERED: DEXTROSE 50% 50 ML SYRINGE IV PRN ×2 (01:30→07:15)
[2018-04-29] MEDS ORDERED: GLUCAGON FOR INJ 1 MG VIAL (J1610) SC PRN ×2 (01:30→07:15)
[2018-04-29] MEDS ORDERED: GLUCOSE 4 GM CHEW TABLET PO PRN ×2 (01:30→07:15)
[2018-04-29] MEDS ORDERED: KETOROLAC 30 MG/ML VIAL (J1885) IV PRN (01:45)
[2018-04-29] MEDS ORDERED: KETOROLAC 30 MG/ML VIAL (J1885) IV ONE (01:45)
[2018-04-29 02:19] LABS: INR 3.06; PROTHROMBIN TIME 32.3 SECONDS (12.1-14.4)
--- NOTE | 2018-04-29 02:49 | REPVR ---
EXAM: US Right Duplex Lower Extremity Veins (limited) EXAM DATE/TIME: 04/29/18 (2:31am) CLINICAL HISTORY: 57 year old male. Assess for DVT / hematoma. Upper right leg pain. TECHNIQUE: Real-time Duplex ultrasound of the Right Lower Extremity with 2-D nichole scale, color Doppler flow and spectral waveform analysis. Limited exam was focused on the right lower extremity veins. COMPARISON: US Duplex left leg veins of 02/06/17 FINDINGS: Right deep veins: Unremarkable. The common femoral, femoral, proximal profunda femoral and popliteal veins are patent without thrombus. Normal compressibility, augmentation response and Doppler waveforms. Right superficial veins: Unremarkable. Saphenofemoral junction is patent without thrombus. Soft tissues: Joint effusion at right knee. IMPRESSION: No evidence of deep vein thrombosis. Right knee joint effusion. Electronically signed by: Jenni Morales On 04/29/2018 02:49:16 AM
[2018-04-29] MEDS: PERCOCET 5MG/325MG TAB PO PRN ×3 (02:51→20:10)
[2018-04-29 03:15] VITALS: BP 125/71
[2018-04-29] MEDS: LEVEMIR (INSULIN DETEMIR) 1 UNITS/0.01ML SC SCH ×3 (03:43→20:08)
[2018-04-29] MEDS: DOCUSATE SODIUM 100 MG CAP PO SCH ×3 (03:43→20:09)
[2018-04-29] MEDS: FAMOTIDINE 20 MG TAB PO SCH ×3 (03:44→20:09)
[2018-04-29] MEDS: BACLOFEN 10 MG TAB PO SCH ×3 (03:44→20:09)
[2018-04-29] MEDS: GABAPENTIN 100 MG CAP PO SCH ×2 (04:23→20:08)
[2018-04-29] MEDS: MONTELUKAST 10 MG TAB PO SCH ×2 (04:23→20:09)
[2018-04-29] MEDS: traZODone 100 MG TAB PO SCH ×2 (04:23→20:08)
[2018-04-29] MEDS ORDERED: HYDROMORPHONE HCL 0.5 MG/ 0.5 ML SYRINGE (J1170 PER 1) IV PRN (05:15)
[2018-04-29] MEDS ORDERED: LIDOCAINE 2% INJ 100 MG/5 ML SYRINGE IV STA (05:35)
[2018-04-29] MEDS: HYDROMORPHONE HCL 0.5 MG/ 0.5 ML SYRINGE (J1170 PER 1) IV PRN ×6 (05:49→21:18)
[2018-04-29 06:00] VITALS: BP_SYST 125; BP_SYST 134; BP_DIAS 71
[2018-04-29] MEDS ORDERED: LIDOCAINE W/EPINEPHRINE 1% 20ML VIAL SC ONE (06:00)
[2018-04-29 07:24] LABS: BODY FLUID RHEUMATOID SCREEN NEGATIVE (NEGATIVE)
[2018-04-29 07:25] LABS: MUCIN CLOT TEST 4+ (4+)
[2018-04-29 08:07] LABS: SOURCE, BODY FLUID RT KNEE; SYNOVIAL FLUID COLOR PALE YELLOW (YELLOW)
[2018-04-29 08:08] LABS: CRYSTALS, BODY FLUID NONE SEEN (NONE SEEN); SOURCE, BODY FLUID CRYSTALS RT KNEE
[2018-04-29] MEDS: diltiaZEM **CD** 180 MG CAP PO SCH (09:00)
[2018-04-29] MEDS: ENOXAPARIN 40 MG/0.4 ML SYRINGE (J1650) SC SCH (09:52)
[2018-04-29] MEDS: SUCRALFATE 1 GM TAB PO SCH ×2 (09:52→17:55)
[2018-04-29] MEDS: SERTRALINE 100 MG TAB PO SCH (09:52)
[2018-04-29] MEDS: MULTIVITAMINS/MINERALS THERAP 1 TAB PO SCH (09:52)
[2018-04-29] MEDS: ATORVASTATIN 20 MG TAB PO SCH (09:53)
[2018-04-29] MEDS: ASPIRIN 81 MG ENTERIC TAB PO SCH (09:53)
[2018-04-29] MEDS: ASCORBIC ACID 500 MG TAB PO SCH (09:53)
[2018-04-29] MEDS: HumaLOG INSULIN (NovoLOG) PER UNIT SC SCH ×5 (09:54→21:00)
--- NOTE | 2018-04-29 09:54 | REP ---
MRI RIGHT KNEE WITHOUT CONTRAST: 04/29/2018. Comparison: X-ray 04/28/2018. Technique: Standard noncontrast MRI knee imaging sequences provided. Findings: The PCL is intact. The ACL shows contiguous fibers through its course with a few fibers posteriorly with some increased signal suggesting mild strain but no tear. Trace fluid in the intercondylar notch. Medial meniscus shows no intrasubstance signal abnormality to communicate to an articular surface that would suggest a tear. There is no loose body in the medial compartment. A grade 1 chondromalacia with some thinning on the tibial plateau. No bone bruise or fracture in the adjacent femoral condyle or tibial plateau. Medial collateral ligamentous complex is intact. There is only trace fluid along the medial head of the gastrocnemius muscle. The MCL and medial patellar retinaculum are intact. The lateral meniscus shows some minor the type 1 intrameniscal degenerative type signal. No tear is evident. There is no loose body in the lateral compartment. Some chondromalacia grade 1 in the lateral compartment noted. The lateral collateral ligamentous complex is intact. Patellar retinaculum preserved. There is trace of fluid and deep to the retinaculum in the bursal recess about the lateral femoral condyle with trace effusion in the suprapatellar bursa. No patellar subluxation or dislocation. There is a grade 2 chondromalacia lateral patellar facet. No significant trochlear chondromalacia. No bone bruise or fracture of the patella or tibial plateau. Popliteus tendon intact. The posterior tibial articulation with the proximal fibula unremarkable. Some increased signal posterior to the posterior horn of the medial meniscus and deep to the capsule without fluid collection. This may reflect a very minimal meniscocapsular injury. The quadriceps and patellar tendons are intact. There is extensive subcutaneous edema circumferentially around the knee. This edema is ill-defined with only small amounts of fluid definitely in the prepatellar bursa but extensive edema in the subcutaneous fat surrounding. Signal in the musculature is normal. Impression: 1. There is no significant internal derangement with only trace effusion suprapatellar bursa and into the bursal recess about the lateral femoral condyle. However, extensive circumferential subcutaneous edema seen all around the knee. Does the patient had evidence for cellulitis or any unusual trauma? 2. Very minimal meniscocapsular injury with some edema but no fluid collection between the posterior horn medial meniscus and capsule. No definite tears of the cruciates, menisci, collateral ligamentous complexes or extensor mechanism. No loose body. 3. Tricompartment chondromalacia, grade 2 and the lateral patellar facet with grade 1 changes elsewhere. 4. No bone bruise or fracture. Electronically Signed by Dylan Kaplan MD 04/29/2018 01:20 P
[2018-04-29] MEDS ORDERED: MAALOX 30 ML SUSP *UDC PO PRN (11:30)
--- NOTE | 2018-04-29 13:13 | HPE ---
DATE OF ADMISSION: 04/29/2018 CHIEF COMPLAINT: Sudden onset knee pain with inability to ambulate. HISTORY OF PRESENT ILLNESS: The patient is a 57-year-old male. He has a significant past medical history of coronary artery disease, status post PCI, hypertension, deep vein thrombosis (DVT), pulmonary embolus on Coumadin therapy, diabetes with nephropathy, hyperlipidemia. He has a history of esophageal spasm and is scheduled to have myotomy at [facility] in [place] this coming Tuesday. He presented to the emergency room. The patient states that he was walking to the bathroom when he suddenly felt excruciating pain in his knee. He fell to the ground. He denies any trauma. He denies any hyperflexion, hyperextension, or any abnormal motion with regard to his knee. The patient states that he suddenly had swelling of the knee and was unable to bear weight. He did not hear any popping sounds. He has no old sports injuries to the knee. He presented to the emergency room in severe pain. He does state that he used narcotics at home for the esophageal spasm. He required multiple doses of fentanyl and Dilaudid to control his pain. He did spike a fever or 103 and was notably tachycardic, however, he does not appear toxic. He denies any cough, chest pain, shortness of breath, urinary symptoms, abdominal pain, constipation, diarrhea, or recent travels. PAST MEDICAL HISTORY: See history of present illness. PAST SURGICAL HISTORY: He has had back surgery, neck surgery, osteoma removed, as well as hernia repair. HOME MEDICATIONS: - vitamin C - aspirin - Lipitor - Baclofen - Colace - Pepcid - gabapentin - Coumadin, which he started holding today for his myotomy - Levemir 67 units - insulin sliding scale - trazodone - sertraline - multivitamin - Singulair ALLERGIES: PLAVIX, ROSUVASTATIN, reactions unknown. SOCIAL HISTORY: Former smoker. Denies alcohol or illicit drug use. FAMILY HISTORY: Noncontributory. REVIEW OF SYSTEMS: 12-point review of systems was completed, all of which were negative except those listed in history of present illness. VITAL SIGNS: On admission: Maximum temperature (t-max) 103.3, initial heart rate 130, respirations 24, oxygen saturation 97% on room air. Blood pressure 117/66. PHYSICAL EXAMINATION: GENERAL: He is well nourished, in mild distress secondary to pain. HEAD: Normocephalic, atraumatic. EYES: Extraocular movements are intact. Pupils are equal, round and reactive to light. NECK: Supple with no jugular venous pressure. LUNGS: Clear to auscultation. No crackles, wheezes, rales, or rhonchi. CARDIOVASCULAR: Regular rate and rhythm. Normal S1, S2. No murmurs, gallops or rubs. ABDOMEN: The abdomen is obese. There appears to be a reducible umbilical hernia. No rebound. No guarding. Positive bowel sounds. EXTREMITIES: There is no pitting edema. The knee is swollen on the right. No erythema. Mildly warm to touch. Most of his pain is at the inferior surface of the knee, likely at the insertion site for the patellar tendon. There is no discernible effusion. Unable to perform Justice's test due to significant pain. LABORATORIES AND IMAGING: Performed in the emergency department: White count 15, hemoglobin and hematocrit 14/42, platelet count 208. Chemistries are unremarkable. BUN and creatinine of 14/1.06, lactate of 2. UA is unremarkable. Rapid flue was negative. IMAGING DONE: Knee x-ray shows some mild degenerative changes, but no joint space narrowing, fracture or loose bodies. Chest x-ray shows no acute pulmonary disease. CT angio of the chest shows no acute findings. ASSESSMENT AND PLAN: 1. Systemic inflammatory response syndrome (SIRS). Likely secondary to severe knee pain, possibly secondary to patella tendon tear versus less likely meniscal tear versus less likely deep vein thrombosis (DVT)/PE vs cellulitis ( r/o septic vs inflam arthritis) as the patient has only interrupted his anticoagulation for 1 day thus far and his previous INR was subtherapeutic. The patient is to be admitted for intractable pain. We will get ultrasound, nonvascular, at the knee. Dopplers of the lower extremities, as well as MRI of the knee. Orthopedics were spoken to in the emergency room, Dr. Patel. His recommendation was to provide the patient with crutches, non weight bearing, and the patient to be seen on Tuesday in the outpatient setting. Toradol, Percocet for pain control, would advance as needed. 2. Deep vein thrombosis (DVT) and pulmonary embolism. Coumadin is to be held. We will send INR to assess. Coumadin to be held for upcoming procedure, myotomy, on Tuesday for [address] on SCDs for deep vein thrombosis (DVT) prophylaxis. 3. History of coronary artery disease, status post PCI. We will continue the patient on aspirin and Lipitor. 5. Gastroesophageal reflux disease (GERD). We will continue Pepcid. 6. Hypertension. We will continue diltiazem. 7. Mood disorder. We will continue trazodone and Zoloft. 8. Diabetes with neuropathy. We will continue Detemir, insulin sliding scale. We will hold oral hypoglycemics. Again, orthopedics recommended the patient to be discharged initially with followup on Tuesday and provide him with crutches, however, because of the fever and tachycardia, emergency room provider wanted to have the patient admitted to observe to see if there are any signs of infection. The patient does not appear toxic. We will send another blood culture. We will continue to hold antibiotics. Septic workup and trend vitals. I believe most of his pain is responsible for his tachycardia and fever spikes. 9. Supportive. Deep vein thrombosis (DVT) prophylaxis with SCDs. The patient is on Coumadin, which is being held for surgery. Gastrointestinal prophylaxis, he is on Carafate and Pepcid. Diet is cardiac, diabetic diet. MTDD
--- NOTE | 2018-04-29 13:57 | CR ---
DATE OF CONSULTATION: 04/29/2018 CHIEF COMPLAINT: Spontaneous left knee pain and swelling. HISTORY OF PRESENT ILLNESS: This is a 57-year-old man who presented to the hospital approximately 12 hours ago with severe knee pain. He was walking at home. He experienced spontaneous pain in his knee. There was no trauma. No slip and fall. No twisting of his knee. He is now experiencing pain below his patella and medial to that. There is some spontaneous swelling and redness. The pain is localized there and does not radiate anywhere. He rates it now as an 8 out of 10. It felt like "I fell from a decent height onto concrete." He has never had anything like this before. No past history of injections, surgeries or other knee problems. It gets worse with touching it, even lightly, and it gets worse with different positions. It feels better straight. REVIEW OF SYSTEMS: Positive for fevers. While in the emergency department apparently it was 103. He does not feel very well. He does have diarrhea, but this is apparently due to cucumbers, according to him. No chills or sweats. No nausea or vomiting or shaking chills. No dysuria or problems urinating. No productive cough. PAST MEDICAL HISTORY: Significant for: 1. Type 2 diabetes. 2. Hypertension. 3. Chronic obstructive pulmonary disease (COPD)/emphysema. 4. Esophageal spasm. 5. Chest pain in the past. MEDICATIONS: - vitamin C - aspirin - atorvastatin - diltiazem - docusate - famotidine - gabapentin - glucagon - hydromorphone - insulin - Detemir - Lispro - montelukast - multivitamin - Percocet - sertraline - sucralfate - trazodone ALLERGIES/ADVERSE REACTIONS: CLOPIDOGREL, ROSUVASTATIN. SURGICAL HISTORY: Right ankle surgery. SOCIAL HISTORY: He is a nonsmoker. He drinks occasionally. He quit cigarettes in September of last year. His primary care doctor is Bridgette Courtney. He is . He is listed as . He lives in [place]. PHYSICAL EXAMINATION: VITAL SIGNS: The only temperature listed in the computer was 100.6 at 3:00 a.m. this morning. Respiratory rate 20. Blood pressure 125/71. He is alert and oriented times three. His mood and affect are slightly anxious. He was in a moderate amount of discomfort just at rest. Inspection of both lower extremities reveal a mild to moderate amount of patchy redness on the medial aspect of his right knee and none on the left. There is no tracking redness up his leg or down his leg. His ankle and hip appear normal. There is a small amount of swelling, especially on the medial side of the knee. Palpation revealed some soreness and tenderness on the medial aspect of his knee, the rash blanched with light touching. No pain on palpation of his hip or his ankle. Sensation was normal in both lower extremities, L2 to S1. Normal in the foot, superficial and peroneal nerves, as well as saphenous and tibial. He is able to wiggle his toes and dorsiflex and plantar flex his foot. Active and passive range of motion of his knee was 0 to 90 degrees. There was no obvious pain with micromotion of the knee either. No effusion. The reference librarian had performed an aspiration at the superolateral aspect of the knee and this was covered with iodine prep solution, but it did not appear to be red. Overall, I would say there was really no effusion at this point. He was able to perform a straight leg raise test. There is no pain overlying other than really over the area which appeared to be cellulitis. I was unable to complete a stability examination as he was in quite a bit of pain with even just light touching his knee. Radiographs were obtained. This shows no fracture. There is no gas in the soft tissues. There is perhaps a slight amount of patella dona. There does appear to be a small effusion. LABORATORY EXAMINATION: From 7:00 p.m. on 04/21/2018 demonstrates white blood cell count 15.4, hemoglobin of 14.6, ESR was ordered this morning and is still pending. His neutrophil percentage was 79.9. PT was slightly elevated. Chemistries were normal. Troponin were less 0.02. Lactic acid was 2.0 last night at 2139 hours. Urinalysis was initially negative. Knee aspiration performed by the reference librarian is pending for fluid analysis. ASSESSMENT AND PLAN: This is a 57-year-old man with spontaneous onset of right knee pain, swelling and redness in the absence of any trauma and without obvious large intra-articular collection, I believe he has cellulitis of his knee. I did have a chance to look at the aspirate itself that was performed by the reference librarian, and this only showed 3 to 4 mL of straw colored benign-appearing fluid. The patient does not appear to be septic, and I do not think that they have a septic arthritis; however, I think that it is reasonable to start intravenous antibiotics for presumed right knee cellulitis and to see if this responds. We will start 2 grams of IV Rocephin every 8 hours and see if this improves his condition. At that point, I would like to reexamine the knee in the next 1 to 2 days to see if there are any more concerns for a structural problem, as he did initially present as a query patellar tendon rupture, but given the fact that he can do a straight leg raise test, I will defer that exam until the next 2 to 3 days. We will also place him on Lovenox 40 mg once daily for VTE/DVT prophylaxis. Edited: anitha 05/06/2018 1208 MTDD
[2018-04-29 14:00] VITALS: BP 129/74
[2018-04-29] MEDS ORDERED: IBUPROFEN 800 MG TAB PO ONE (16:00)
[2018-04-29] MEDS ORDERED: MONTELUKAST 10 MG TAB PO SCH (21:00)
[2018-04-29 22:00] VITALS: BP 138/75
[2018-04-30] MEDS: HYDROMORPHONE HCL 0.5 MG/ 0.5 ML SYRINGE (J1170 PER 1) IV PRN ×7 (00:52→20:41)
[2018-04-30] MEDS ORDERED: HYDROMORPHONE HCL 0.5 MG/ 0.5 ML SYRINGE (J1170 PER 1) IV ONE (01:30)
[2018-04-30 06:00] VITALS: BP 155/84
[2018-04-30 06:04] LABS: HEMATOCRIT 40.4 % (42.0-52.0); HEMOGLOBIN 13.6 g/dl (13.5-17.5); MEAN CORPUSCULAR HGB CONC 33.7 g/dl (32.0-36.5); PLATELET COUNT, AUTOMATED 159 10^3/uL (150-450); RED BLOOD COUNT 4.54 10^6/uL (4.30-6.10); WHITE BLOOD COUNT 19.7 10^3/uL (4.0-10.0)
[2018-04-30 06:23] LABS: ERYTHROCYTE SEDIMENTATION RATE 61 mm/hr (0-20)
[2018-04-30 06:39] LABS: BLOOD UREA NITROGEN 14 MG/DL (7-18); CALCIUM LEVEL 8.8 MG/DL (8.5-10.1); CARBON DIOXIDE LEVEL 25 MEQ/L (21-32); CHLORIDE LEVEL 100 MEQ/L (98-107); CREATININE FOR GFR 1.04 MG/DL (0.70-1.30); GLOMERULAR FILTRATION RATE > 60.0 (>56); GLUCOSE, FASTING 179 MG/DL (70-100); SODIUM LEVEL 133 MEQ/L (136-145)
[2018-04-30] MEDS: PERCOCET 5MG/325MG TAB PO PRN (06:52)
--- NOTE | 2018-04-30 06:53 | ECGEPIP ---
Stationary ECG Study [facility] - ED Test Date: 2018-04-28 Pat Name: VIOLA CUBA Department: Room: [place] [address] Gender: M Security Screener: ct : 1960 Requested By: NUZHAT Rosario PA-C Order Number: [id number] Reading MD: Malathi Martin Measurements Intervals [place] Rate: 132 P: 62 HI: 138 QRS: 67 QRSD: 93 T: 37 QT: 308 QTc: 458 Interpretive Statements SINUS TACHYCARDIA WITH OCCASIONAL VENTRICULAR PREMATURE COMPLEXES ABNORMAL RHYTHM ECG PROLONGED QTC NONSPECIFIC ST T WAVE CHANGES CW 03/05/[address] T WAVE CHANGES Electronically Signed On 04-30-2018 6:52:45 EST by Malathi Martin
[2018-04-30] MEDS: ASCORBIC ACID 500 MG TAB PO SCH (08:04)
[2018-04-30] MEDS: SERTRALINE 100 MG TAB PO SCH (08:04)
[2018-04-30] MEDS: MULTIVITAMINS/MINERALS THERAP 1 TAB PO SCH (08:04)
[2018-04-30] MEDS: BACLOFEN 10 MG TAB PO SCH ×2 (08:04→20:24)
[2018-04-30] MEDS: ENOXAPARIN 40 MG/0.4 ML SYRINGE (J1650) SC SCH (08:04)
[2018-04-30] MEDS: DOCUSATE SODIUM 100 MG CAP PO SCH ×2 (08:04→20:24)
[2018-04-30] MEDS: SUCRALFATE 1 GM TAB PO SCH ×2 (08:04→17:29)
[2018-04-30] MEDS: FAMOTIDINE 20 MG TAB PO SCH ×2 (08:04→20:24)
[2018-04-30] MEDS: ATORVASTATIN 20 MG TAB PO SCH (08:04)
[2018-04-30] MEDS: LEVEMIR (INSULIN DETEMIR) 1 UNITS/0.01ML SC SCH ×2 (08:05→20:25)
[2018-04-30] MEDS: HumaLOG INSULIN (NovoLOG) PER UNIT SC SCH ×4 (08:06→20:43)
[2018-04-30] MEDS: diltiaZEM **CD** 180 MG CAP PO SCH (08:07)
[2018-04-30] MEDS: ASPIRIN 81 MG ENTERIC TAB PO SCH (08:11)
[2018-04-30] MEDS ORDERED: oxyCODONE 10 MG CR TAB PO ONE (13:00)
--- NOTE | 2018-04-30 13:45 | IPNPDOC ---
Text Note Date of Service The patient was seen on 04/30/18. NOTE Subjective: Patient notes increased right knee pain/swelling/erythema. Denies any chest pain, shortness of breath/palpitations. No abdominal pain. Objective: Vitals: (see below) General: No acute distress, laying comfortably in bed. HEENT: Moist mucous membranes. Neck: No JVD or lymphadenopathy Cardiac: RRR, No murmurs Pulm: Clear to auscultation b/l. No wheezing, rhonchi Abd: NT/ND + BS Ext: Right knee erythematous, tender to palpation. Patient has full range of motion. Distal pulses intact. Labs (see below) Images: Assessment/Plan 1. Sepsis secondary to cellulitis adjacent to the right knee. CRP/WBC increasing. Patient with MAXIMUM TEMPERATURE of 101. We'll change Ancef to vancomycin and Zosyn pending cultures. 2. Knee pain- likely secondary to the above with increased swelling. Status post arthrocentesis, with no significant WBCs. Likely due to the cellulitis overlying the knee. Continue antibiotics. Started OxyContin. Continue Percocet/Dilaudid as needed. 3. Insulin-dependent diabetes mellitus- on Levemir and sliding scale insulin. 4. History of CAD status post PCI continue home meds 5. History of DVT/PE. His Coumadin was noted to have been on hold for a esophageal spasm myotomy at the [facility] this coming Tuesday. Given the patient's acute illness, we'll recheck to the [facility] tomorrow, as the patient may need this rescheduled. We'll check INR today. 6. Diabetic neuropathy continue gabapentin 7. History of hypertension continue home meds 8. History of mood disorder continue trazodone and Zoloft DVT prophy: On Lovenox VS,Fishbone, I+O VS, Fishbone, I+O Laboratory Tests 04/30/18 05:38 Red Blood Count 4.54, Mean Corpuscular Volume 89.0, Mean Corpuscular Hemoglobin 30.0, Mean Corpuscular Hemoglobin Concent 33.7, Red Cell Distribution Width 13.3, Calcium Level 8.8 Vital Signs Date Time Temp Pulse Resp B/P (MAP) Pulse Ox O2 Delivery O2 Flow Rate FiO2 04/30/18 13:02 18 Room Air 04/30/18 08:07 123 155/84 04/30/18 06:52 95 04/30/18 06:00 99.4 04/29/18 02:51 2.0 I&O- Last 24 Hours up to 6 AM 04/30/18 06:00 Intake Total 3510 ml Output Total 550 ml Balance 2960 ml ILEANA BELTRÁN MD Apr 30, 2018 13:45
[2018-04-30 14:00] VITALS: BP 155/86
[2018-04-30 14:07] LABS: INR 1.23; PROTHROMBIN TIME 15.7 SECONDS (12.1-14.4)
[2018-04-30] MEDS: PIPERACILLIN/TAZOBACTAM SOD 3.375 GM in D5W MINI-BAG PLUS 50 ML IV SCH ×2 (14:07→20:27)
[2018-04-30] MEDS: IBUPROFEN 800 MG TAB PO PRN (14:16)
--- NOTE | 2018-04-30 15:01 | PHACANCOPD ---
PHARMACY VANCOMYCIN DOSING Pt Demographics Demographics Patient Age:57 , Weight:125.400 , Gender: male Adjusted Body Weight Date: 04/30/18, Adjusted Body Weight: [100] Kg Events Past 24 Hours Events Past 24 Hours: YES: Fever, Elevation in WBC; NO: Dialysis, Diuretic Therapy, Change in CrCl, Pending Diagnostics, Pending Procedures, Other Vancomycin Vancomycin indication: sepsis/septic arthritis Vancomycin Target Ranges: 15-20 mcg/ml Vancomycin Load Y/N: Yes Load Dose Date Time Vancomycin Load Dose: 2000mg Date: 04/30 Time: ~15:00 Vancomycin Dose Date: 04/30/18. Current Vancomycin Dose: [1g IV q8h @23] Intermittent Dosing?: No Labs Labs Item Value Date Time White Blood Count 15.4 10^3/uL H 04/28/181910 White Blood Count 19.7 10^3/uL H 04/30/18 0538 Creatinine 1.06 MG/DL 04/28/181910 Creatinine 1.04 MG/DL 04/30/18 0538 Micro Microbiology 04/28/18 Blood Culture - Preliminary, Resulted No growth after 24 hours . All specim... 04/28/18 Blood Culture - Preliminary, Resulted No growth after 24 hours . All specim... 04/29/18 Gram Stain - Final, Resulted 04/29/18 Body Fluid Culture, Resulted Pending Creatinine Clearance Date:04/30/18. Creatinine Clearance: [~113 using adjusted BW]. Pending Labs Vanco trough scheduled 05/02 @06:00 Assessment and Plan Maintaining Current Dose?: Yes Reason for dose change: No Dose Change Pharmacist Note Pharmacist Note Date: 04/30/18. Pharmacist note: pt has been changed from Ancef 2g IV q8h to Zosyn and Vancomycin for sepsis/septic arthritis. Pt has been febrile, inflammatory markers are trending up and swelling is worsening in his right knee. Blood cultures and synovial fluid cultures are pending. Pt has not been on vancomycin at our facility in the past, nor does he have an apparent Hx of MRSA. I have started him on a vancomycin 2g load followed by 1g IV q8h. I have a trough scheduled for Tuesday. SCr appears to be at his baseline. We will continue to monitor and make adjustments as necessary. Gianfranco Casillas Pharm.D. Apr 30, 2018 15:01
[2018-04-30] MEDS: VANCOMYCIN HCL 1,000 MG, VIAL MATE ADAPTER 1 EACH in D5W 250 ML IV SCH ×2 (15:41→23:06)
[2018-04-30] MEDS ORDERED: VANCOMYCIN HCL 1,000 MG, VIAL MATE ADAPTER 1 EACH in D5W 250 ML IV ONE (16:00)
[2018-04-30] MEDS: traZODone 100 MG TAB PO SCH (20:23)
[2018-04-30] MEDS: MONTELUKAST 10 MG TAB PO SCH (20:24)
[2018-04-30] MEDS: GABAPENTIN 100 MG CAP PO SCH (20:24)
[2018-04-30] MEDS: oxyCODONE 10 MG CR TAB PO SCH (20:25)
[2018-04-30 21:00] VITALS: BP 150/82
[2018-05-01] MEDS: HYDROMORPHONE HCL 0.5 MG/ 0.5 ML SYRINGE (J1170 PER 1) IV PRN ×7 (01:01→22:12)
[2018-05-01] MEDS: PIPERACILLIN/TAZOBACTAM SOD 3.375 GM in D5W MINI-BAG PLUS 50 ML IV SCH ×4 (01:51→20:48)
[2018-05-01 06:00] VITALS: BP 126/54
[2018-05-01 06:10] LABS: HEMATOCRIT 36.9 % (42.0-52.0); HEMOGLOBIN 12.8 g/dl (13.5-17.5); MEAN CORPUSCULAR HEMOGLOBIN 30.3 pg (27.0-33.0); MEAN CORPUSCULAR HGB CONC 34.7 g/dl (32.0-36.5); MEAN CORPUSCULAR VOLUME 87.4 fl (80.0-96.0); PLATELET COUNT, AUTOMATED 142 10^3/uL (150-450); RED BLOOD COUNT 4.22 10^6/uL (4.30-6.10); WHITE BLOOD COUNT 15.5 10^3/uL (4.0-10.0)
[2018-05-01] MEDS: VANCOMYCIN HCL 1,000 MG, VIAL MATE ADAPTER 1 EACH in D5W 250 ML IV SCH ×3 (06:12→23:18)
[2018-05-01] MEDS: IBUPROFEN 800 MG TAB PO PRN (06:29)
[2018-05-01 06:44] LABS: BLOOD UREA NITROGEN 15 MG/DL (7-18); CALCIUM LEVEL 8.3 MG/DL (8.5-10.1); CARBON DIOXIDE LEVEL 24 MEQ/L (21-32); CHLORIDE LEVEL 100 MEQ/L (98-107); CREATININE FOR GFR 1.04 MG/DL (0.70-1.30); GLOMERULAR FILTRATION RATE > 60.0 (>56); GLUCOSE, FASTING 184 MG/DL (70-100); POTASSIUM SERUM 3.7 MEQ/L (3.5-5.1); SODIUM LEVEL 132 MEQ/L (136-145)
--- NOTE | 2018-05-01 06:48 | IPN ---
DATE OF VISIT: 04/30/2018 CHIEF COMPLAINT: Right knee cellulitis. HISTORY OF PRESENT ILLNESS: This is a 57-year-old male who complained this morning of the spontaneous onset of right knee pain and swelling. Eventually he went on to develop some redness when he admitted to the hospital. Initially the emergency room physician thought he may have a quadriceps tendon rupture' however when I saw him he started to have redness in his knee and was also having some temperatures and general flu-like symptoms. Now he does complain about some nausea, fevers and feeling unwell. He had had no specific injury to his knee and as such this appeared to be a cellulitis and as such we started intravenous Ancef. Now on today's date the pain does appear to be a little bit decreased in his knee. PHYSICAL EXAMINATION: VITAL SIGNS: He still has a temperature this morning of 99.4, blood pressure 155/84, pulse rate 120. 96% on room air, respiratory rate 18. GENERAL: The patient is awake, alert and oriented times three. He is slightly anxious. Overall his mood is good. He is pleasant to converse with. He does state that the pain is slightly less in his knee but that the redness has slightly increased in the knee and I do agree anteriorly and medically the redness is a little bit spreading on his knee. He is able to wiggle his toes, dorsiflex and plantar flex is foot. Palpation of the knee did reveal a little bit less pain with light touch. Range of motion is about the same 0-90 degrees. Microbiology was reviewed from the aspirate that was performed yesterday. So far there is no organism seen, a few wbc's. A MRI of his knee was performed yesterday which shows no acute internal derangement. There is definite marked soft tissue and subcutaneous swelling consistent with cellulitis. ASSESSMENT AND PLAN: This is a 57-year-old man with right knee cellulitis. I believe that we are pursuing the correct course of treatment; that is, intravenous antibiotics. Given his negative knee aspirate and lack of findings of septic joint I do not think that this would warrant any surgical management as yet. The knee MRI effectively rules out a quads or patellar tendon injury that the emergency room doctor was originally thinking. Occasionally this cellulitis can get a little bit worse after the beginning of antibiotics; so I think we should give it at least one more day of Ancef before switching him to stronger antibiotics. His C-reactive protein (CRP) and ESR(erythrocyte sedimentation rate) were also trending upwards from ESR 21-61 and CRP 8.5-30.8 and this can also happen with initiation of antibiotics, so I think that we will monitor these things. If the redness continues to spread and the CRP and ESR continue to elevate over the next 24-48 hours then I think that we should consider stepping him up to stronger antibiotics at that point. I will see this patient tomorrow morning to see how things are going and if it is still not improving at that point then I will consult infectious disease or leave it up to the hospitalist to increase or change the antibiotics.
[2018-05-01 07:08] LABS: ERYTHROCYTE SEDIMENTATION RATE 79 mm/hr (0-20)
[2018-05-01] MEDS ORDERED: NS 1,000 ML IV SCH (07:45)
[2018-05-01] MEDS: oxyCODONE 10 MG CR TAB PO SCH ×2 (08:56→20:49)
[2018-05-01] MEDS: HumaLOG INSULIN (NovoLOG) PER UNIT SC SCH ×4 (08:57→21:00)
[2018-05-01] MEDS: SERTRALINE 100 MG TAB PO SCH (08:57)
[2018-05-01] MEDS: MULTIVITAMINS/MINERALS THERAP 1 TAB PO SCH (08:58)
[2018-05-01] MEDS: ASCORBIC ACID 500 MG TAB PO SCH (08:58)
[2018-05-01] MEDS: FAMOTIDINE 20 MG TAB PO SCH ×2 (08:58→20:49)
[2018-05-01] MEDS: diltiaZEM **CD** 180 MG CAP PO SCH (08:58)
[2018-05-01] MEDS: ASPIRIN 81 MG ENTERIC TAB PO SCH (08:58)
[2018-05-01] MEDS: SUCRALFATE 1 GM TAB PO SCH ×2 (08:58→17:53)
[2018-05-01] MEDS: DOCUSATE SODIUM 100 MG CAP PO SCH ×2 (08:58→20:49)
[2018-05-01] MEDS: ATORVASTATIN 20 MG TAB PO SCH (08:58)
[2018-05-01] MEDS: LEVEMIR (INSULIN DETEMIR) 1 UNITS/0.01ML SC SCH ×2 (08:59→20:50)
[2018-05-01] MEDS: BACLOFEN 10 MG TAB PO SCH ×2 (08:59→20:49)
[2018-05-01] MEDS: ENOXAPARIN 40 MG/0.4 ML SYRINGE (J1650) SC SCH (08:59)
[2018-05-01] MEDS: PERCOCET 5MG/325MG TAB PO PRN ×2 (10:41→17:54)
--- NOTE | 2018-05-01 11:47 | IPN ---
DATE: 05/01/2018 CHIEF COMPLAINT: Post admission day #3 right knee cellulitis. HISTORY OF PRESENT ILLNESS: This is a 57-year-old man who is diabetic developed spontaneous onset of right knee cellulitis. We have been treating with Ancef. However, his inflammatory markers have been trending up so the cooler supervisor had put him on vancomycin and piperacillin-tazobactam yesterday afternoon. He does complain about pain in the knee. However, this does appear to be lessening. He is taking a number of narcotic medications. He is trying to avoid sugary drinks as well. The pain is mostly located in his knee. However, sometimes he feels like it goes down to his ankle. This only lasts temporarily for about 4 minutes, self resolves. He is still having some fevers and chills, feeling unwell. PHYSICAL EXAMINATION: Today, alert and oriented times three. His mood is good. Affect is normal. Inspection of both lower extremities reveal the redness on the right knee to be slightly spreading again. This is mostly of the medial aspect of his thigh. Some of the redness around just distal to his knee does appear to be consolidating into a deeper purple and slightly resolving. It is not going down his calf or anywhere near his ankle. Palpation revealed some mild tenderness to the knee but nothing at the ankle. Active passive range of motion of the knee was 0-90 degrees. Full active passive range of motion of the ankle. Normal sensation of lower extremity into the foot. Good pedal pulses. Foot is warm and well perfused. There is no knee effusion. There is still pain to light touch of the redness. Nothing on the left lower extremity. VITAL SIGNS: Temperature 101.9. Blood pressure 126/54, pulse rate 67, 16 respiratory rate, 95% on room air. LABORATORY EXAMINATION: This morning white blood cell count 15.5, ESR 79, from 61 previously, and CRP 28, from 30 yesterday. ASSESSMENT AND PLAN: I agree that it is certainly reasonable to increase his antibiotics to make vancomycin/piperacillin-tazobactam given the fact it was not resolving in 2 days with Ancef and he is a diabetic with other medical comorbidities. We will see how this goes. We will continue to check his inflammatory markers. I have encouraged him to get up and move, weight-bear as tolerated. He should also avoid any kind of sugary or high glucose containing foods as trying to decrease his inflammation, and we will follow him while he is in hospital.
[2018-05-01 14:00] VITALS: BP 141/70
--- NOTE | 2018-05-01 14:30 | IPNPDOC ---
Text Note Date of Service The patient was seen on 05/01/18. NOTE Subjective: Patient notes a decrease in right knee pain/swelling/erythema. Pain well controlled. Denies any chest pain, shortness of breath/palpitations. No abdominal pain. Objective: Vitals: (see below) General: No acute distress, laying comfortably in bed. HEENT: Moist mucous membranes. Neck: No JVD or lymphadenopathy Cardiac: RRR, No murmurs Pulm: Clear to auscultation b/l. No wheezing, rhonchi Abd: NT/ND + BS Ext: Right knee erythematous, tender to palpation improving. ROM improving. Distal pulses intact. Swelling improving. Labs (see below) Images: Assessment/Plan 1. Sepsis secondary to cellulitis adjacent to the right knee. CRP/WBC increasing. s/p Ancef. Cont vancomycin and Zosyn pending cultures. Clinically improving. 2. Knee pain- likely secondary to the above with increased swelling. Status post arthrocentesis, with no significant WBCs. Likely due to the cellulitis overlying the knee. Continue antibiotics. Cont pain control with OxyContin/Perco cet/Dilaudid as needed which pt states is controlling the pain very well. 3. Insulin-dependent diabetes mellitus- on Levemir and sliding scale insulin. 4. History of CAD status post PCI continue home meds 5. History of DVT/PE. His Coumadin was noted to have been on hold for a esophageal spasm myotomy at the [facility] this coming Tuesday. Given the patient's acute illness, pt has cancelled his appointment, and coumadin will be restarted today. 6. Diabetic neuropathy continue gabapentin 7. History of hypertension continue home meds 8. History of mood disorder continue trazodone and Zoloft DVT prophy: Coumadin. VS,Fishbone, I+O VS, Fishbone, I+O Laboratory Tests 05/01/18 05:47 Red Blood Count 4.22 L, Mean Corpuscular Volume 87.4, Mean Corpuscular Hemoglobin 30.3, Mean Corpuscular Hemoglobin Concent 34.7, Red Cell Distribution Width 13.4, Calcium Level 8.3 L Vital Signs Date Time Temp Pulse Resp B/P (MAP) Pulse Ox O2 Delivery O2 Flow Rate FiO2 05/01/18 13:13 18 Room Air 05/01/18 08:58 67 126/54 05/01/18 08:30 97.1 05/01/18 05:38 95 04/29/18 02:51 2.0 I&O- Last 24 Hours up to 6 AM 05/01/18 06:00 Intake Total 5470 ml Output Total 1550 ml Balance 3920 ml ILEANA BELTRÁN MD May 01, 2018 14:30
[2018-05-01] MEDS: WARFARIN SOD 5 MG TAB PO SCH (17:54)
[2018-05-01] MEDS: traZODone 100 MG TAB PO SCH (20:49)
[2018-05-01] MEDS: MONTELUKAST 10 MG TAB PO SCH (20:49)
[2018-05-01] MEDS: GABAPENTIN 100 MG CAP PO SCH (20:49)
[2018-05-02] MEDS: PIPERACILLIN/TAZOBACTAM SOD 3.375 GM in D5W MINI-BAG PLUS 50 ML IV SCH ×2 (01:40→08:59)
[2018-05-02] MEDS: HYDROMORPHONE HCL 0.5 MG/ 0.5 ML SYRINGE (J1170 PER 1) IV PRN ×7 (01:41→21:59)
[2018-05-02 06:00] VITALS: BP_SYST 126; BP_SYST 141; BP_DIAS 69; BP_DIAS 77
[2018-05-02 06:18] LABS: HEMATOCRIT 36.8 % (42.0-52.0); HEMOGLOBIN 12.6 g/dl (13.5-17.5); MEAN CORPUSCULAR HEMOGLOBIN 30.1 pg (27.0-33.0); MEAN CORPUSCULAR HGB CONC 34.2 g/dl (32.0-36.5); MEAN CORPUSCULAR VOLUME 87.8 fl (80.0-96.0); PLATELET COUNT, AUTOMATED 176 10^3/uL (150-450); RED BLOOD COUNT 4.19 10^6/uL (4.30-6.10)
[2018-05-02 06:46] LABS: BLOOD UREA NITROGEN 13 MG/DL (7-18); CALCIUM LEVEL 8.3 MG/DL (8.5-10.1); CARBON DIOXIDE LEVEL 29 MEQ/L (21-32); CHLORIDE LEVEL 101 MEQ/L (98-107); CREATININE FOR GFR 0.99 MG/DL (0.70-1.30); GLOMERULAR FILTRATION RATE > 60.0 (>56); GLUCOSE, FASTING 148 MG/DL (70-100); POTASSIUM SERUM 3.5 MEQ/L (3.5-5.1); SODIUM LEVEL 136 MEQ/L (136-145); VANCOMYCIN LEVEL TROUGH 9.6 UG/ML (10.0-20.0)
--- NOTE | 2018-05-02 06:58 | PHACANCOPD ---
PHARMACY VANCOMYCIN DOSING Pt Demographics Demographics Patient Age:57 , Weight:125.400 , Gender: male Adjusted Body Weight Date: 04/30/18, Adjusted Body Weight: [100] Kg Vancomycin Vancomycin indication: sepsis/septic arthritis Vancomycin Target Ranges: 15-20 mcg/ml Vancomycin Load Y/N: Yes Load Dose Date Time Vancomycin Load Dose: 2000mg Date: 04/30 Time: ~15:00 Vancomycin Dose Date: 04/30/18. Current Vancomycin Dose: [1g IV q8h @23] Intermittent Dosing?: No Labs Labs Laboratory Tests 05/02/18 06:01 Red Blood Count 4.19 L, Mean Corpuscular Volume 87.8, Mean Corpuscular Hemoglobin 30.1, Mean Corpuscular Hemoglobin Concent 34.2, Red Cell Distribution Width 13.5, Calcium Level 8.3 L Micro Microbiology 05/01/18 Blood Culture, Received Pending 05/01/18 Blood Culture, Received Pending 04/28/18 Blood Culture - Preliminary, Resulted No Growth after 72 hours. All specime... 04/28/18 Blood Culture - Preliminary, Resulted No Growth after 72 hours. All specime... 04/29/18 Gram Stain - Final, Complete 04/29/18 Body Fluid Culture - Final, Complete Creatinine Clearance Date:04/30/18. Creatinine Clearance: [~113 using adjusted BW]. Assessment and Plan Maintaining Current Dose?: No Reason for dose change: Trough too low Pharmacist Note Pharmacist Note Date: 05/02/18. Pharmacist note:Vancomycin trough drawn this morning @6:01 report ed as 9.6(goal =15-20)Will change Vancomycin regimen to 1 gram IV q6h to begin today@0700-will monitor labs and make additional adjustments as needed. Date: 04/30/18. Pharmacist note: pt has been changed from Ancef 2g IV q8h to Zosyn and Vancomycin for sepsis/septic arthritis. Pt has been febrile, i nflammatory markers are trending up and swelling is worsening in his right knee. Blood cultures and synovial fluid cultures are pending. Pt has not been on vancomycin at our facility in the past, nor does he have an apparent Hx of MRSA. I have started him on a vancomycin 2g load followed by 1g IV q8h. I have a trough scheduled for Tuesday. SCr appears to be at his baseline. We will continue to monitor and make adjustments as necessary. JANA DAWSON PHARMACY May 02, 2018 06:58
[2018-05-02] MEDS: VANCOMYCIN HCL 1,000 MG, VIAL MATE ADAPTER 1 EACH in D5W 250 ML IV SCH ×2 (07:00→12:52)
[2018-05-02 07:04] LABS: ERYTHROCYTE SEDIMENTATION RATE 87 mm/hr (0-20)
[2018-05-02] MEDS: HumaLOG INSULIN (NovoLOG) PER UNIT SC SCH ×4 (08:52→21:00)
[2018-05-02] MEDS: ASPIRIN 81 MG ENTERIC TAB PO SCH (08:52)
[2018-05-02] MEDS: ATORVASTATIN 20 MG TAB PO SCH (08:52)
[2018-05-02] MEDS: diltiaZEM **CD** 180 MG CAP PO SCH (08:52)
[2018-05-02] MEDS: DOCUSATE SODIUM 100 MG CAP PO SCH ×2 (08:52→21:32)
[2018-05-02] MEDS: SUCRALFATE 1 GM TAB PO SCH ×2 (08:52→18:50)
[2018-05-02] MEDS: oxyCODONE 10 MG CR TAB PO SCH (08:53)
[2018-05-02] MEDS: PERCOCET 5MG/325MG TAB PO PRN ×2 (08:54→16:35)
[2018-05-02] MEDS: MULTIVITAMINS/MINERALS THERAP 1 TAB PO SCH (08:55)
[2018-05-02] MEDS: SERTRALINE 100 MG TAB PO SCH (08:55)
[2018-05-02] MEDS: BACLOFEN 10 MG TAB PO SCH ×2 (08:55→21:34)
[2018-05-02] MEDS: ASCORBIC ACID 500 MG TAB PO SCH (08:55)
[2018-05-02] MEDS: FAMOTIDINE 20 MG TAB PO SCH ×2 (08:55→21:34)
[2018-05-02] MEDS: LEVEMIR (INSULIN DETEMIR) 1 UNITS/0.01ML SC SCH ×2 (08:56→21:34)
[2018-05-02 09:03] LABS: INR 1.12; PROTHROMBIN TIME 14.5 SECONDS (12.1-14.4)
--- NOTE | 2018-05-02 12:32 | IPN ---
DATE: 05/02/2018 CHIEF COMPLAINT: 57-year-old man with right knee cellulitis. HISTORY OF PRESENT ILLNESS: This is a 57-year-old man who presents with spontaneous onset of right knee pain. He went on to develop redness and what appears to be cellulitis of his right knee. He was initially started on intravenous cefazolin but then switched to piperacillin-tazobactam and vancomycin as this was not resolving within about 2 days and he was still having fevers, chills, and flu-like symptoms. I saw him today. He is not complaining about any constitutional symptoms. He felt like he was feeling better. Not having flu-like symptoms but still having high temperatures. He was more concerned with his pain medication management and reached out to the patient advocate with regards to waiting an for his pain medications. PHYSICAL EXAMINATION: This morning at 6 a.m., temperature 100.7 and 96.5 also documented. Blood pressure 141/69, pulse rate anywhere between 71 to 111, 94% on room air, respiratory rate 18-20. He is alert and oriented times three. Mood is a little bit annoyed due to waiting for his pain medications, but overall he settled. Examination of his right knee reveals the redness to be about the same as yesterday. It tracts along up the medial thigh to about the mid thigh but overall, the redness has deepened and it appears to be consolidating. Palpation reveals some tenderness to light touch about the right knee. His active and passive range of motions are to 90 degrees. There is no obvious effusion. No redness of the puncture site from where the aspirate was initially drawn. He has normal sensation throughout the foot. He is able to wiggle his toes, dorsiflex and plantar flex is foot. He is wearing sequential compression stockings (SCDs). Knee aspirate from 04/29/2018 shows no growth. A few WBCs, no organisms seen. LABORATORY EXAM: Hemoglobin 12.6, ESR still trending upwards to 87. CRP trending down to 21.6. ASSESSMENT/PLAN: This 57-year-old man has now been on strong antibiotics for the last 2 days and his CRP does appear to be trending downwards to the more responsive marker. I believe that we are on the right course in terms of antibiotics and treatment. I believe that we should continue the antibiotics for now to make sure that the CRP continues to trend down and the redness resolves over the next few days. I did encourage him to move his knee while he is in bed and try to get up and mobilize. We will monitor him while he is in the hospital.
--- NOTE | 2018-05-02 13:15 | IPNPDOC ---
Text Note Date of Service The patient was seen on 05/02/18. NOTE Subjective: Pt has increased ROM of his knee, however his pain is not adequately controlled as it was yesterday. Denies any chest pain, shortness of breath/palpitations. No abdominal pain. Objective: Vitals: (see below) General: No acute distress, laying comfortably in bed. HEENT: Moist mucous membranes. Neck: No JVD or lymphadenopathy Cardiac: RRR, No murmurs Pulm: Clear to auscultation b/l. No wheezing, rhonchi Abd: NT/ND + BS Ext: Right knee erythematous, tender to palpation. ROM improving. Distal pulses intact. Swelling improving. Labs (see below) Images: Assessment/Plan 1. Sepsis secondary to cellulitis adjacent to the right knee. CRP/WBC increasing. s/p Ancef. Cont vancomycin and Zosyn pending cultures. Clinically improving. Dr. Savage consulted. 2. Knee pain- likely secondary to the above with increased swelling. Status post arthrocentesis, with no significant WBCs. Likely due to the cellulitis overlying the knee. Continue antibiotics. Cont pain control with OxyContin/Percocet/Dilaudid as needed. Pain management consulted. 3. Insulin-dependent diabetes mellitus- on Levemir and sliding scale insulin. 4. History of CAD status post PCI continue home meds 5. History of DVT/PE. His Coumadin was noted to have been on hold for a esophageal spasm myotomy at the [facility] this coming Tuesday. Given the patient's acute illness, pt has cancelled his appointment, and Coumadin will be restarted. 6. Diabetic neuropathy continue gabapentin 7. History of hypertension continue home meds 8. History of mood disorder continue trazodone and Zoloft DVT prophy: Coumadin. PT once pain is better controlled. VS,Fishbone, I+O VS, Fishbone, I+O Laboratory Tests 05/02/18 06:01 Red Blood Count 4.19 L, Mean Corpuscular Volume 87.8, Mean Corpuscular Hemoglobin 30.1, Mean Corpuscular Hemoglobin Concent 34.2, Red Cell Distribution Width 13.5, Calcium Level 8.3 L Vital Signs Date Time Temp Pulse Resp B/P (MAP) Pulse Ox O2 Delivery O2 Flow Rate FiO2 05/02/18 12:54 18 Room Air 05/02/18 08:52 71 141/69 05/02/18 06:00 100.7 94 04/29/18 02:51 2.0 I&O- Last 24 Hours up to 6 AM 05/02/18 06:00 Intake Total 720 ml Output Total 2525 ml Balance -1805 ml ILEANA BELTRÁN MD May 02, 2018 13:15
[2018-05-02 16:10] LABS: ALBUMIN 2.8 GM/DL (3.2-5.2); BILIRUBIN,DIRECT 0.2 MG/DL (0.0-0.2); BILIRUBIN,TOTAL 0.6 MG/DL (0.2-1.0); TOTAL PROTEIN 6.3 GM/DL (6.4-8.2)
--- NOTE | 2018-05-02 16:15 | CR ---
DATE OF PAIN CLINIC CONSULTATION: 05/02/2018 CHIEF COMPLAINT: Right leg pain. REFERRING PHYSICIAN: Dr. Quiroz HISTORY OF PRESENT ILLNESS Nilton is a 57-year-old gentleman who was admitted a few days ago for excruciating right knee pain. He has been diagnosed with cellulitis. Currently receiving OxyContin 10 mg twice a day and Dilaudid 1 mg IV as needed (p.r.n.) for pain. His pain has not been well controlled over the past few days. According I-STOP the patient has been receiving oxycodone 01/11/25 six tablets per day for several months. The patient states he has been on this for years for chronic back pain and what he describes as esophageal "spasms". States IV Dilaudid helps with the pain but is short lived. Rating pain level as an 8/10. Seems a bit anxious during visit. PAST MEDICAL HISTORY: Insulin dependent diabetes mellitus. Diabetic neuropathy. Hypertension. Mood disorder. History of the deep venous thrombosis (DVT)/pulmonary embolism (PE). History of coronary artery disease, status post percutaneous coronary intervention (PCI). Chronic back pain. ALLERGIES: CLOPIDOGREL, ROSUVASTATIN. REVIEW OF SYSTEMS: Negative except as stated in HPI, at 11-point reviewed. PHYSICAL EXAMINATION Awake, alert, appears uncomfortable. Vital signs: 100.7, 96.5, 111, 20, BP 126/77, O2 saturation is 94% on room air. Inspection - right lower extremity: Bright red erythema noted over the distal aspect of femur, right knee and right lower extremity tibia-fibula/fibula. Cardiac: S1, S2. Normal rate and rhythm. Respirations - lung sounds clear. Respirations nonlabored. ASSESSMENT 1. Acute right lower extremity pain secondary to cellulitis. 2. Chronic opiate use for chronic low back pain. PLAN I would recommend to increase OxyContin to 20 mg three times a day. Continue with use of IV Dilaudid at 1 mg every 3 hours IV as needed for breakthrough pain. This could be transitioned to Percocet 10 mg/325 1-2 tablets every 4 hours as a discharge plan. He has been getting chronic opioids through his primary care provider and primary care should continue to evaluate him post discharge for needs of pain medication. KEVIND
[2018-05-02] MEDS: WARFARIN SOD 5 MG TAB PO SCH (16:35)
[2018-05-02] MEDS ORDERED: LINEZOLID 600MG TABLET (ZYVOX) PO SCH (21:00)
[2018-05-02] MEDS: traZODone 100 MG TAB PO SCH (21:33)
[2018-05-02] MEDS: EUCERIN 120GM CREAM EXT SCH (21:33)
[2018-05-02] MEDS: oxyCODONE 20 MG CR TAB PO SCH (21:33)
[2018-05-02] MEDS: GABAPENTIN 100 MG CAP PO SCH (21:34)
[2018-05-02] MEDS: MONTELUKAST 10 MG TAB PO SCH (21:34)
[2018-05-02] MEDS: CEFTAROLINE FOSAMIL 600 MG in D5W MINI-BAG PLUS 50 ML IV SCH (21:58)
[2018-05-02 22:00] VITALS: BP 123/60
[2018-05-03] MEDS: HYDROMORPHONE HCL 0.5 MG/ 0.5 ML SYRINGE (J1170 PER 1) IV PRN ×7 (02:10→21:43)
[2018-05-03] MEDS: oxyCODONE 20 MG CR TAB PO SCH ×3 (05:15→21:44)
[2018-05-03 06:00] VITALS: BP 126/76
[2018-05-03 06:51] LABS: BLOOD UREA NITROGEN 13 MG/DL (7-18); CALCIUM LEVEL 8.8 MG/DL (8.5-10.1); CARBON DIOXIDE LEVEL 27 MEQ/L (21-32); CHLORIDE LEVEL 101 MEQ/L (98-107); CREATININE FOR GFR 0.97 MG/DL (0.70-1.30); GLOMERULAR FILTRATION RATE > 60.0 (>56); GLUCOSE, FASTING 96 MG/DL (70-100); POTASSIUM SERUM 3.2 MEQ/L (3.5-5.1); SODIUM LEVEL 137 MEQ/L (136-145)
[2018-05-03 06:53] LABS: INR 1.25; PROTHROMBIN TIME 15.9 SECONDS (12.1-14.4)
[2018-05-03 06:54] LABS: HEMATOCRIT 39.6 % (42.0-52.0); HEMOGLOBIN 13.2 g/dl (13.5-17.5); MEAN CORPUSCULAR HGB CONC 33.3 g/dl (32.0-36.5); PLATELET COUNT, AUTOMATED 226 10^3/uL (150-450); WHITE BLOOD COUNT 13.8 10^3/uL (4.0-10.0)
[2018-05-03] MEDS ORDERED: FLEET ENEMA PR PRN (07:30)
[2018-05-03] MEDS: HumaLOG INSULIN (NovoLOG) PER UNIT SC SCH ×4 (07:30→21:00)
[2018-05-03 07:43] LABS: ERYTHROCYTE SEDIMENTATION RATE 69 mm/hr (0-20)
[2018-05-03] MEDS ORDERED: FLEET ENEMA PR ONE (08:00)
[2018-05-03] MEDS: diltiaZEM **CD** 180 MG CAP PO SCH (08:52)
[2018-05-03] MEDS: CEFTAROLINE FOSAMIL 600 MG in D5W MINI-BAG PLUS 50 ML IV SCH ×2 (08:52→20:49)
[2018-05-03] MEDS: SENOKOT S TAB PO SCH ×2 (08:52→20:51)
[2018-05-03] MEDS: MULTIVITAMINS/MINERALS THERAP 1 TAB PO SCH (08:53)
[2018-05-03] MEDS: DOCUSATE SODIUM 100 MG CAP PO SCH ×2 (08:54→20:51)
[2018-05-03] MEDS: ATORVASTATIN 20 MG TAB PO SCH (08:54)
[2018-05-03] MEDS: SUCRALFATE 1 GM TAB PO SCH ×2 (08:54→18:26)
[2018-05-03] MEDS: BACLOFEN 10 MG TAB PO SCH ×2 (08:54→20:50)
[2018-05-03] MEDS: ASPIRIN 81 MG ENTERIC TAB PO SCH (08:54)
[2018-05-03] MEDS: SERTRALINE 100 MG TAB PO SCH (08:54)
[2018-05-03] MEDS: ASCORBIC ACID 500 MG TAB PO SCH (08:54)
[2018-05-03] MEDS: FAMOTIDINE 20 MG TAB PO SCH ×2 (08:54→20:50)
[2018-05-03] MEDS: MOM 30ML SUSPENSION UDC PO SCH (08:55)
[2018-05-03] MEDS: MIRALAX *UNIT DOSE* 17GM PACKET PO SCH (08:55)
[2018-05-03] MEDS: EUCERIN 120GM CREAM EXT SCH ×2 (08:55→20:51)
[2018-05-03] MEDS: LEVEMIR (INSULIN DETEMIR) 1 UNITS/0.01ML SC SCH ×2 (08:55→20:50)
--- NOTE | 2018-05-03 13:06 | CR ---
DATE OF CONSULTATION: 05/02/2018 TIME: 4:00 p.m. REASON FOR CONSULTATION: I was asked to consult by hospitalist for severe right lower extremity cellulitis. HISTORY OF PRESENT ILLNESS: Mr. Mcwilliams is a 57-year-old gentleman with a history of coronary artery disease, hypertension and obesity who presented with acute onset of right lower extremity pain, cellulitis and fever up to 103. The patient was doing well until the morning of admission when he developed severe excruciating pain of the knee extending to the leg. He fell to the ground due to pain and came to the hospital. The patient had a fever of 103. He was tachycardic. He had some erythema around his knee and swelling. He was started on IV cefazolin. The next day, his CRP and fever persisted. His CRP increased, his fever persisted, so he was switched to vancomycin and Zosyn. His vancomycin dose has been increased up to a gram every 6 hours due to a low vancomycin trough. He feels better but states the pain is uncontrollable. The patient states he has a history of esophageal spasm for which he was undergoing myotomy at the [facility] this week. He takes up to six Percocet a day and therefore pain medications have been not enough to control his pain of his right lower extremity. PAST MEDICAL HISTORY: Deep vein thrombosis (DVT)/pulmonary embolism on Coumadin. Diabetes with neuropathy. Hyperlipidemia. Esophageal spasm. Coronary artery disease, status post percutaneous coronary intervention (PCI). Hypertension. PAST SURGICAL HISTORY: Back surgery. Neck fusion. Osteoma removed from the left foot as a teenager. Hernia repair. MEDICATIONS: - vitamin C daily - warfarin 12 mg daily - MiraLax 1 packet daily - Senokot 1 tablet p.o. b.i.d. - oxycodone 10 mg p.o. b.i.d. - vancomycin 1 gram IV q.6 h - Zosyn 3.375 grams IV q.6 h - aspirin 81 mg p.o. daily - Lipitor 40 mg daily - diltiazem 180 mg daily - multivitamin 1 tablet daily - sertraline 100 mg daily - Carafate 1 gram p.o. b.i.d. - Dilaudid as needed for pain every 3 hours - trazodone 300 mg p.o. q.h.s. - baclofen 10 mg p.o. b.i.d. - Pepcid 20 mg p.o. b.i.d. - insulin Levemir 67 units subcu b.i.d. - Colace 100 mg p.o. b.i.d. - gabapentin 200 mg p.o. q.h.s. - montelukast 10 mg p.o. q.h.s. ALLERGIES: 1. ROSUVASTATIN. 2. CLOPIDOGREL. 3. PLAVIX. LABORATORY DATA: White count on admission was 15.4 up to 19.7, today it was 15, hemoglobin 12.6, hematocrit 36.8, platelets 176. ESR 87, which has increased from 21 on admission. Sodium 136, potassium 3.5, chloride 101, bicarb 29, BUN 13, creatinine 0.99, glucose 148, calcium 8.3, bilirubin 0.6, AST 56, ALT 54, alk phos 126, CRP 21.6, albumin 2.8. Vancomycin trough on 05/02 was 9.6. Urinalysis 0 white cells. Knee fluid aspiration done on 05/[address] Patel had only 86 white cells, 61 mononuclear cells and 38% PMNs. It was cloudy fluid, but culture was negative. This was not suggestive of an infectious joint. Influenza A and B was negative. Knee x-ray showed some osteoarthritic changes and prepatellar soft tissue swelling. Chest x-ray showed no acute findings. Vascular ultrasound right deep veins unremarkable. Joint effusion at the right knee. Knee MRI showed no significant derangement with only a trace effusion of the suprapatellar bursa, tricompartment chondromalacia, no fracture. Extensive circumferential subcutaneous edema. PHYSICAL EXAMINATION: He is a healthy older than stated age looking man in no acute distress. Temperature is 97.9, pulse 97, respirations 20, blood pressure 123/60, O2 sat 93% on room air. T-max today was 100.7. Heart normal S1-S2. No murmurs, rubs or gallops. Lungs are clear. No wheezes, rales or rhonchi. Abdomen morbidly obese, soft, nontender. Back no CVA or lumbosacral tenderness. Neck has a large scar area well healed. Extremities trace edema on the left side. On the right side he has extensive edema, erythema from the ankle all the way to the mid thigh with inguinal adenopathy. The erythema is bright red, tender to touch. He has dry skin both knees with excoriation and plaques. Both elbows have dry plaques as well. Feet dry skin, onychomycosis. IMPRESSION: This is a 57-year-old gentleman with a history of DVT of lower extremity and pulmonary embolism, obesity, diabetes, hypertension, chronic narcotic dependence for esophageal spasm who was admitted with first episode of cellulitis of right lower extremity which was acute in onset, most likely streptococcal or Staphylococcus in origin. The patient does not have history of Methicillin-resistant Staphylococcus aureus (MRSA) infection. He does not have any purulence to suggest MRSA infection. He has slowly improved on current antibiotic. His vancomycin trough remains on the lower side. He has required high doses of vancomycin. His CRP is slowly improving and his temperature curve is trending down. The patient is on multiple medications that would be contraindication to p.o. linezolid, high dose of trazodone as well as sertraline together, and therefore I would not recommend switch to linezolid p.o. PLAN: Discontinue IV vancomycin. Discontinue IV Zosyn. De-escalate the ceftaroline 600 mg IV q. 12 hours. Obtain MRSA screen nasal. Obtain antistreptolysin O (ASO), if elevated would suggest streptococcal group A infection. Thank you for consultation, will continue to follow. Further oral antibiotic de-escalation will be decided based on results of labs. MTDD
--- NOTE | 2018-05-03 13:24 | IPNPDOC ---
Text Note Date of Service The patient was seen on 05/03/18. NOTE Subjective: Pain better controlled. Denies any complaints. Objective: Vitals: (see below) General: No acute distress, laying comfortably in bed. HEENT: Moist mucous membranes. Neck: No JVD or lymphadenopathy Cardiac: RRR, No murmurs Pulm: Clear to auscultation b/l. No wheezing, rhonchi Abd: NT/ND + BS Ext: Right knee erythematous, tender to palpation. ROM improving. Distal pulses intact. Swelling improving. Labs (see below) Images: Assessment/Plan 1. Sepsis secondary to cellulitis adjacent to the right knee. CRP/WBC increasing. s/p Ancef. s/p vancomycin and Zosyn pending cultures. Started on Linezolid by ID. Clinically improving. Appreciate Dr. Savage's input. 2. Knee pain- likely secondary to the above with increased swelling. Status post arthrocentesis, with no significant WBCs. Likely due to the cellulitis overlying the knee. Continue antibiotics. Cont pain control with OxyContin/Percocet/Dilaudid as needed. Pain management consulted. 3. Insulin-dependent diabetes mellitus- on Levemir and sliding scale insulin. 4. History of CAD status post PCI continue home meds 5. History of DVT/PE. His Coumadin was noted to have been on hold for a esophageal spasm myotomy at the [facility] this coming Tuesday. Given the patient's acute illness, pt has cancelled his appointment, and Coumadin dose increased. 6. Diabetic neuropathy continue gabapentin 7. History of hypertension continue home meds 8. History of mood disorder continue trazodone and Zoloft DVT prophy: Coumadin, dose increased VS,Fishbone, I+O VS, Fishbone, I+O Laboratory Tests 05/03/18 05:46 Red Blood Count 4.40, Mean Corpuscular Volume 90.0, Mean Corpuscular Hemoglobin 30.0, Mean Corpuscular Hemoglobin Concent 33.3, Red Cell Distribution Width 13.9, Calcium Level 8.8 Vital Signs Date Time Temp Pulse Resp B/P (MAP) Pulse Ox O2 Delivery O2 Flow Rate FiO2 05/03/18 12:32 18 Room Air 05/03/18 08:52 100 126/76 05/03/18 06:00 97.9 93 04/29/18 02:51 2.0 I&O- Last 24 Hours up to 6 AM 05/03/18 06:00 Intake Total 2510 ml Output Total 3300 ml Balance -790 ml ILEANA BELTRÁN MD May 03, 2018 13:24
[2018-05-03] MEDS ORDERED: POTASSIUM CHLORIDE 10 MEQ SR TABLET PO ONE (13:30)
[2018-05-03] MEDS ORDERED: WARFARIN SOD 4 MG TAB PO SCH (17:00)
[2018-05-03] MEDS: traZODone 100 MG TAB PO SCH (20:50)
[2018-05-03] MEDS: MONTELUKAST 10 MG TAB PO SCH (20:50)
[2018-05-03] MEDS: GABAPENTIN 100 MG CAP PO SCH (20:50)
[2018-05-03 22:00] VITALS: BP 134/70
[2018-05-04] MEDS: HYDROMORPHONE HCL 0.5 MG/ 0.5 ML SYRINGE (J1170 PER 1) IV PRN ×3 (04:10→11:06)
[2018-05-04 06:00] VITALS: BP 147/70
[2018-05-04 06:09] LABS: HEMATOCRIT 35.5 % (42.0-52.0); HEMOGLOBIN 12.1 g/dl (13.5-17.5); MEAN CORPUSCULAR HEMOGLOBIN 30.2 pg (27.0-33.0); MEAN CORPUSCULAR HGB CONC 34.1 g/dl (32.0-36.5); MEAN CORPUSCULAR VOLUME 88.5 fl (80.0-96.0); PLATELET COUNT, AUTOMATED 214 10^3/uL (150-450); RED BLOOD COUNT 4.01 10^6/uL (4.30-6.10); WHITE BLOOD COUNT 10.8 10^3/uL (4.0-10.0)
[2018-05-04 06:21] LABS: INR 1.36
[2018-05-04 06:33] LABS: BLOOD UREA NITROGEN 14 MG/DL (7-18); CALCIUM LEVEL 8.4 MG/DL (8.5-10.1); CARBON DIOXIDE LEVEL 26 MEQ/L (21-32); CHLORIDE LEVEL 103 MEQ/L (98-107); CREATININE FOR GFR 0.91 MG/DL (0.70-1.30); GLOMERULAR FILTRATION RATE > 60.0 (>56); GLUCOSE, FASTING 80 MG/DL (70-100); SODIUM LEVEL 140 MEQ/L (136-145)
[2018-05-04 06:40] LABS: ERYTHROCYTE SEDIMENTATION RATE > 140 mm/hr (0-20)
[2018-05-04] MEDS: oxyCODONE 20 MG CR TAB PO SCH ×3 (06:43→22:42)
[2018-05-04] MEDS: HumaLOG INSULIN (NovoLOG) PER UNIT SC SCH ×4 (07:30→21:00)
[2018-05-04] MEDS ORDERED: POTASSIUM CHLORIDE 10 MEQ SR TABLET PO ONE ×2 (07:45→11:30)
[2018-05-04] MEDS: MIRALAX *UNIT DOSE* 17GM PACKET PO SCH (08:13)
[2018-05-04] MEDS: MOM 30ML SUSPENSION UDC PO SCH (08:14)
[2018-05-04] MEDS: diltiaZEM **CD** 180 MG CAP PO SCH (08:15)
[2018-05-04] MEDS: BACLOFEN 10 MG TAB PO SCH ×2 (08:16→20:32)
[2018-05-04] MEDS: SUCRALFATE 1 GM TAB PO SCH ×2 (08:16→18:01)
[2018-05-04] MEDS: SENOKOT S TAB PO SCH ×2 (08:16→20:32)
[2018-05-04] MEDS: ASPIRIN 81 MG ENTERIC TAB PO SCH (08:16)
[2018-05-04] MEDS: MULTIVITAMINS/MINERALS THERAP 1 TAB PO SCH (08:16)
[2018-05-04] MEDS: ATORVASTATIN 20 MG TAB PO SCH (08:16)
[2018-05-04] MEDS: FAMOTIDINE 20 MG TAB PO SCH ×2 (08:16→20:31)
[2018-05-04] MEDS: DOCUSATE SODIUM 100 MG CAP PO SCH ×2 (08:16→20:31)
[2018-05-04] MEDS: SERTRALINE 100 MG TAB PO SCH (08:16)
[2018-05-04] MEDS: ASCORBIC ACID 500 MG TAB PO SCH (08:16)
[2018-05-04] MEDS: CEFTAROLINE FOSAMIL 600 MG in D5W MINI-BAG PLUS 50 ML IV SCH ×2 (08:17→20:31)
[2018-05-04] MEDS: EUCERIN 120GM CREAM EXT SCH ×2 (08:17→21:00)
[2018-05-04] MEDS: LEVEMIR (INSULIN DETEMIR) 1 UNITS/0.01ML SC SCH ×2 (08:18→22:42)
[2018-05-04] MEDS ORDERED: oxyCODONE 5MG TAB PO PRN ×2 (11:30→11:45)
[2018-05-04] MEDS ORDERED: PERCOCET 5MG/325MG TAB PO PRN (11:30)
[2018-05-04] MEDS ORDERED: HYDROMORPHONE HCL 0.5 MG/ 0.5 ML SYRINGE (J1170 PER 1) IV PRN ×2 (11:45→14:45)
[2018-05-04] MEDS ORDERED: PILL CRUSHER/CUTTER 1 EACH XX PRN (12:00)
--- NOTE | 2018-05-04 13:12 | IPNPDOC ---
Text Note Date of Service The patient was seen on 05/04/18. NOTE Subjective: Patient states his pain still not optimal as he would like to have enough pain control to completely be off of the Dilaudid. I advised him that I will have pain management return and reassess his pain control. Denies any other complaints. Progressing well physical therapy. Objective: Vitals: (see below) General: No acute distress, laying comfortably in bed. HEENT: Moist mucous membranes. Neck: No JVD or lymphadenopathy Cardiac: RRR, No murmurs Pulm: Clear to auscultation b/l. No wheezing, rhonchi Abd: NT/ND + BS Ext: Right lower extremity with cellulitis - erythematous, tender to palpation. ROM improving. Distal pulses intact. Swelling improving. Labs (see below) Images: Assessment/Plan 1. Sepsis secondary to cellulitis adjacent to the right knee. CRP/WBC increasing. s/p Ancef. s/p vancomycin and Zosyn pending cultures. Status post Linezolid, changed to Ceftaroline by ID. Clinically improving. Appreciate Dr. Savage's input. 2. Knee pain- likely secondary to the above with increased swelling. Status post arthrocentesis, with no significant WBCs. Likely due to the cellulitis overlying the knee. Continue antibiotics. Cont pain control with Oxy Contin/Percocet/Dilaudid as needed. Pain management consulted. 3. Insulin-dependent diabetes mellitus- on Levemir and sliding scale insulin. 4. History of CAD status post PCI continue home meds 5. History of DVT/PE. His Coumadin was noted to have been on hold for a esophageal spasm myotomy at the [facility] this coming Tuesday. Given the patient's acute illness, pt has cancelled his appointment, and Coumadin dose increased. INR subtherapeutic. 6. Diabetic neuropathy continue gabapentin 7. History of hypertension continue home meds 8. History of mood disorder continue trazodone and Zoloft DVT prophy: Coumadin, dose increased PT on board. VS,Fishbone, I+O VS, Fishbone, I+O Laboratory Tests 05/04/18 05:35 Red Blood Count 4.01 L, Mean Corpuscular Volume 88.5, Mean Corpuscular Hemoglobin 30.2, Mean Corpuscular Hemoglobin Concent 34.1, Red Cell Distribution Width 14.1, Calcium Level 8.4 L Vital Signs Date Time Temp Pulse Resp B/P (MAP) Pulse Ox O2 Delivery O2 Flow Rate FiO2 05/04/18 13:07 20 Room Air 05/04/18 08:15 96 147/70 05/04/18 06:00 97.9 92 04/29/18 02:51 2.0 I&O- Last 24 Hours up to 6 AM 05/04/18 06:00 Intake Total 1250 ml Output Total 4200 ml Balance -2950 ml ILEANA BELTRÁN MD May 04, 2018 13:12
[2018-05-04 14:00] VITALS: BP 134/81
[2018-05-04] MEDS: HYDROmorphone 2 MG TAB PO PRN ×3 (14:09→21:11)
--- NOTE | 2018-05-04 16:49 | IPN ---
DATE: 05/04/2018 REFERRING PHYSICIAN: Dr. Quiroz CHIEF COMPLAINT: Right lower extremity pain / cellulitis. We were asked to see Nilton again due to complaints of uncontrolled pain. After discussion with him this afternoon and deciding on a plan of continuing the OxyContin 20 mg three times a day and using by mouth Dilaudid 1 mg every 3 hours as needed for pain levels above 5 and transitioning off of hydromorphone 0.5 mg IV, he seems to be more comfortable knowing the plan. My recommendation is to continue the OxyContin 20 mg every 8 hours three times a day. Use Dilaudid 1 mg by mouth every 3 hours for pain levels 5-8 over 10 visual analog scale (VAS). Use Dilaudid 1 mg every 3 hours as needed for pain levels 8-10 over 10 (VAS). I reviewed this with his primary nurse. Our goal of course is to be using the by mouth pain medication for breakthrough pain as needed. The patient seems to be okay with this plan. He is hoping to go home in the near future on a by mouth pain medicine regimen. Thank you for allowing us to participate in the care of your patient. If you have any questions please do not hesitate to contact me. Sincerely, Racquel Villarreal, Family Nurse Practitioner [facility]
[2018-05-04] MEDS ORDERED: WARFARIN SOD 5 MG TAB PO SCH (17:00)
[2018-05-04] MEDS: traZODone 100 MG TAB PO SCH (20:31)
[2018-05-04] MEDS: GABAPENTIN 100 MG CAP PO SCH (20:31)
[2018-05-04] MEDS: MONTELUKAST 10 MG TAB PO SCH (20:32)
--- NOTE | 2018-05-04 21:31 | IPN ---
DATE: 05/04/2018 Mr. Mcwilliams seems to be doing much better today. He still has significant erythema in the right leg, but he has much better range of motion of the knee. He has been afebrile for 36 hours. No nausea, vomiting, diarrhea. No abdominal pain. His pain control has been managed by pain clinic and doing well Dilaudid. He is going to try to avoid using any Dilaudid today so he could be discharged home tomorrow. He is on IV ceftaroline. White count has decreased. C-reactive protein (CRP) decreasing. PHYSICAL EXAMINATION: Right knee normal range of motion. Erythema extending from the upper thigh to the calf. Decreased tenderness to touch. There is no purulence. Heart normal S1-S2. No murmurs. Lungs are clear. No wheezes or rhonchi. Abdomen obese, soft, nontender. Extremity: Trace ankle edema on the right side. LABORATORY DATA: Methicillin-resistant Staphylococcus aureus (MRSA) screen was negative. ASO titer was negative. C-reactive protein (CRP) has decreased. IMPRESSION: Right lower extremity cellulitis with normal ASO titer. Negative methicillin-resistant Staphylococcus aureus (MRSA) screen, although this has been done one week into antibiotic therapy. Etiology of cellulitis, probably streptococcus versus Staphylococcus aureus, less likely methicillin-resistant Staphylococcus aureus (MRSA); but since we do not have a pathogen, I would treated for both due to severity of illness. PLAN: The patient could be discharged home tomorrow on Augmentin 875 mg by mouth twice a day and Bactrim double-strength one tablet by mouth twice a day that should cover for streptococcus and methicillin-resistant Staphylococcus aureus (MRSA). I avoid edit to use of linezolid since he is on high-dose trazodone 300 mg at bedtime and SSRIs. Okay to discharge tomorrow. Followup with primary care in 7 to 10 days. I do not need to see him at the infectious disease clinic.
[2018-05-04 22:00] VITALS: BP 134/69
[2018-05-05] MEDS: oxyCODONE 20 MG CR TAB PO SCH ×2 (05:13→14:19)
[2018-05-05 06:00] VITALS: BP 142/84
[2018-05-05] MEDS: HYDROmorphone 2 MG TAB PO PRN ×3 (06:02→12:52)
[2018-05-05 06:05] LABS: HEMATOCRIT 41.6 % (42.0-52.0); HEMOGLOBIN 13.6 g/dl (13.5-17.5); MEAN CORPUSCULAR HEMOGLOBIN 29.9 pg (27.0-33.0); MEAN CORPUSCULAR HGB CONC 32.7 g/dl (32.0-36.5); MEAN CORPUSCULAR VOLUME 91.4 fl (80.0-96.0); PLATELET COUNT, AUTOMATED 276 10^3/uL (150-450); RED BLOOD COUNT 4.55 10^6/uL (4.30-6.10); WHITE BLOOD COUNT 10.8 10^3/uL (4.0-10.0)
[2018-05-05 06:06] LABS: INR 1.7; PROTHROMBIN TIME 20.3 SECONDS (12.1-14.4)
[2018-05-05 06:18] LABS: BLOOD UREA NITROGEN 11 MG/DL (7-18); C REACTIVE PROTEIN QUANTITATIV 9.01 MG/DL (0.00-0.30); CALCIUM LEVEL 8.7 MG/DL (8.5-10.1); CARBON DIOXIDE LEVEL 29 MEQ/L (21-32); CHLORIDE LEVEL 103 MEQ/L (98-107); CREATININE FOR GFR 1.01 MG/DL (0.70-1.30); GLOMERULAR FILTRATION RATE > 60.0 (>56); GLUCOSE, FASTING 105 MG/DL (70-100); POTASSIUM SERUM 4.1 MEQ/L (3.5-5.1); SODIUM LEVEL 139 MEQ/L (136-145)
[2018-05-05 06:33] LABS: ERYTHROCYTE SEDIMENTATION RATE 76 mm/hr (0-20)
[2018-05-05] MEDS: HumaLOG INSULIN (NovoLOG) PER UNIT SC SCH ×2 (07:30→12:00)
[2018-05-05] MEDS: ATORVASTATIN 20 MG TAB PO SCH (08:23)
[2018-05-05] MEDS: CEFTAROLINE FOSAMIL 600 MG in D5W MINI-BAG PLUS 50 ML IV SCH (08:23)
[2018-05-05] MEDS: ASPIRIN 81 MG ENTERIC TAB PO SCH (08:24)
[2018-05-05] MEDS: MULTIVITAMINS/MINERALS THERAP 1 TAB PO SCH (08:24)
[2018-05-05] MEDS: SENOKOT S TAB PO SCH (08:24)
[2018-05-05] MEDS: DOCUSATE SODIUM 100 MG CAP PO SCH (08:25)
[2018-05-05] MEDS: SUCRALFATE 1 GM TAB PO SCH (08:25)
[2018-05-05] MEDS: SERTRALINE 100 MG TAB PO SCH (08:25)
[2018-05-05] MEDS: BACLOFEN 10 MG TAB PO SCH (08:26)
[2018-05-05] MEDS: FAMOTIDINE 20 MG TAB PO SCH (08:26)
[2018-05-05 08:27] VITALS: BP 142/84
[2018-05-05] MEDS: ASCORBIC ACID 500 MG TAB PO SCH (08:27)
[2018-05-05] MEDS: diltiaZEM **CD** 180 MG CAP PO SCH (08:27)
[2018-05-05] MEDS: MIRALAX *UNIT DOSE* 17GM PACKET PO SCH (08:28)
[2018-05-05] MEDS: MOM 30ML SUSPENSION UDC PO SCH (08:28)
[2018-05-05] MEDS: LEVEMIR (INSULIN DETEMIR) 1 UNITS/0.01ML SC SCH (08:29)
[2018-05-05] MEDS: EUCERIN 120GM CREAM EXT SCH (08:35)
[2018-05-05] MEDS ORDERED: WARF-22 PO (11:59)
[2018-05-05] MEDS ORDERED: BACT800T5 PO (11:59)
[2018-05-05] MEDS ORDERED: AUGM875T28 PO (11:59)
[2018-05-05] MEDS ORDERED: OXYC10TA3 PO (11:59)
[2018-05-05] MEDS ORDERED: DOXY-350 PO (12:02)
--- NOTE | 2018-05-05 15:14 | DS.PDOC ---
Discharge Summary General Date of Admission May 01, 2018 at 16:36 Date of Discharge 05/05/18 Attending Physician: ILEANA BELTRÁN MD Specialist/Consultants Involve: Braxton Savage MD Specialist/Consultants Involve Dr. Patel Discharge Summary PROCEDURES PERFORMED DURING STAY: None. ADMITTING/DISCHARGE DIAGNOSES: 1. Sepsis secondary to cellulitis 2. Knee pain secondary to increased edema from surrounding cellulitis. 3. Insulin-dependent diabetes mellitus 4. Chronic pain 5. History of DVT/PE 6. Diabetes neuropathy 7. History of hypertension COMPLICATIONS/CHIEF COMPLAINT: Knee pain HISTORY OF PRESENT ILLNESS/HOSPITAL COURSE: This is a 57-year-old male past medical history of insulin-dependent diabetes mellitus, DVT/PE, hypertension, chronic pain who presents with right knee pain and swelling. Patient was noted to have extensive cellulitis surrounding the right knee and down to the tibial/fibular region. Patient also had an arthrocentesis that was unremarkable. Patient was continued on IV antibiotics, given minimal improvement on Ceftaroline, was switched to broad-spectrum antibiotics of vancomycin and Zosyn, with improvement of the swelling and erythema. was consulted for assistance in further management the antibiotics. Over the course of hospitalization, the patient was also evaluated by pain management, with further titration of his pain medications. Patient is better with physical therapy and has not been cleared. In addition, he was restarted on his Coumadin, which she notes he will follow up closely with his primary care physician for further titration of his dosage. Patient is now hemodynamically stable and will be discharged home on doxycycline and Augmentin as recommended by . He was also instructed by Racquel Villarreal, to take his home dosage of his oxycodone/acetaminophen 1-2 hydrocodone 1-2 tablets every 6 hours as needed for pain level greater than 5, and he may take his home on Dilaudid 2 mg by mouth every 8 hours as needed for pain level greater than 8 for the next 4-5 days. Patient will need to follow up closely with his primary care physician regarding further management of his pain medications. Patient was given a prescription for INR/PT to be done on Tuesday with results to be sent to his primary care physician. Patient was instructed to urgent ED if symptoms worsen. DISCHARGE MEDICATIONS: Please see below. ALLERGIES: Please see below. PHYSICAL EXAMINATION ON DISCHARGE: Vitals: (see below) General: No acute distress, laying comfortably in bed. HEENT: Moist mucous membranes. Neck: No JVD or lymphadenopathy Cardiac: RRR, No murmurs Pulm: Clear to auscultation b/l. No wheezing, rhonchi Abd: NT/ND + BS Ext: Right lower extremity erythematous/swelling improved. ROM improving. Distal pulses intact. LABORATORY DATA: Please see below. PROGNOSIS: Fair given comorbidities ACTIVITY: As tolerated. DIET: Low-sodium diet. Consist of carb diet. DISCHARGE PLAN/DISPOSITION: Home DISCHARGE INSTRUCTIONS: 1. Follow-up with PCP and orthopedics in 1 week. Return to the ED if symptoms worsen. DISCHARGE CONDITION: Stable. TIME SPENT ON DISCHARGE: Greater than 30 minutes. Vital Signs/I&Os Vital Signs Date Time Temp Pulse Resp B/P (MAP) Pulse Ox O2 Delivery O2 Flow Rate FiO2 05/05/18 14:19 16 05/05/18 08:27 94 142/84 05/05/18 06:00 97.2 98 Room Air 04/29/18 02:51 2.0 I&O- Last 24 Hours up to 6 AM 05/05/18 06:00 Intake Total 2460 ml Output Total 3050 ml Balance -590 ml Laboratory Data Labs 24H Laboratory Tests 2 05/04/18 16:32: Bedside Glucose (Misc Panel) 102 05/04/18 21:25: Bedside Glucose (Misc Panel) 152H 05/05/18 05:29: Nucleated Red Blood Cells % (auto) 0.0, Erythrocyte Sedimentation Rate 76H, Prothrombin Time 20.3H, Prothromb Time International Ratio 1.70, Anion Gap 7L, Glomerular Filtration Rate > 60.0, Blood Urea Nitrogen 11, Creatinine 1.01, Sodium Level 139, Potassium Level 4.1#, Chloride Level 103, Carbon Dioxide Level 29, Calcium Level 8.7, C-Reactive Protein, Quantitative 9.01H 05/05/18 11:17: Bedside Glucose (Misc Panel) 147H CBC/BMP Laboratory Tests 05/05/18 05:29 Red Blood Count 4.55, Mean Corpuscular Volume 91.4, Mean Corpuscular Hemoglobin 29.9, Mean Corpuscular Hemoglobin Concent 32.7, Red Cell Distribution Width 14.3, Calcium Level 8.7 FSBS Laboratory Tests Test 05/04/18 16:32 05/04/18 21:25 05/05/18 11:17 Range/Units Bedside Glucose ([facility] Panel) 102 152 147 70-105 MG/DL Microbiology Microbiology 05/01/18 Blood Culture - Preliminary, Resulted No Growth after 72 hours. All specime... 05/01/18 Blood Culture - Preliminary, Resulted No Growth after 72 hours. All specime... 04/28/18 Blood Culture - Final, Complete NO GROWTH AFTER 5 DAYS 04/28/18 Blood Culture - Final, Complete NO GROWTH AFTER 5 DAYS 04/29/18 Gram Stain - Final, Complete 04/29/18 Body Fluid Culture - Final, Complete 05/03/18 MRSA Screen - Final, Complete Discharge Medications Scheduled (Calcium + D3 600-200 mg-Unit) 1 Tab Tab, 2 TAB PO BID, (Reported) (Multivitamin Adults 50+) 1 Tab Tab, 1 TAB PO DAILY, (Reported) Amoxicillin/Clavulanate Potas (Augmentin 875-125 mg) 1 Tab Tab, 1 TAB PO BID Ascorbic Acid (Vitamin C) 500 Mg Cap, 500 MG PO DAILY, (Reported) Aspirin (Aspirin 81) 81 Mg Tab, 81 MG PO DAILY, (Reported) Atorvastatin Calcium (Atorvastatin Calcium) 40 Mg Tab, 40 MG PO DAILY, (Reported) Baclofen (Baclofen) 10 Mg Tab, 10 MG PO BID, (Reported) Cholecalciferol (Vitamin D3 Ultra Potency) 50,000 Unit Tab, 50,000 UNIT PO 1XWK, (Reported) TAKES ON TUESDAY Diltiazem HCl (Diltiazem HCl ER) 180 Mg Cap, 180 MG PO DAILY, (Reported) Doxycycline Hyclate (Doxycycline) 100 Mg Cap, 1 CAP PO BID Exenatide (Bydureon) 2 Mg Inj, 2 MG SC weekly, (Reported) TAKES ON TUESDAY Gabapentin (Gabapentin) 100 Mg Cap, 200 MG PO QHS, (Reported) Insulin Glargine (Lantus Solostar) 100 Unit/Ml Inj, 67 UNITS SC BID, (Reported) sliding scale based on blood glucose Insulin Human Lispro (Humalog) 1 Units/0.01 Ml Inj, SC BID, (Reported) sliding scale Magnesium Oxide (Magnesium) 250 Mg Tab, 500 MG PO DAILY, (Reported) Melatonin (Melatonin) 10 Mg Cap, 10 MG PO QHS, (Reported) Metformin Hydrochloride (Metformin HCl) 1,000 Mg Tab, 1,000 MG PO BID, (Reported) Montelukast Sodium (Montelukast Sodium) 10 Mg Tab, 10 MG PO QHS, (Reported) Ranitidine HCl (Ranitidine HCl) 150 Mg Tab, 1 TAB PO BID, (Reported) Sertraline HCl (Sertraline HCl) 100 Mg Tab, 100 MG PO DAILY, (Reported) Sucralfate (Sucralfate) 1 Gm Tab, 1 GM PO QPM, (Reported) TAKES WITH DINNER Trazodone HCl (Trazodone HCl) 150 Mg Tab, 300 MG PO QHS, (Reported) Warfarin Sod (Warfarin Sodium) 10 Mg Tab, 8 MG PO QHS Scheduled PRN (Oxycodone/Acetaminophen 10-325 mg) 1 Tab Tab, 1-2 TAB PO Q6HP PRN for PAIN Docusate Sodium (Dok) 100 Mg Tab, 100 MG DAILY PRN for CONSTIPATION, (Reported) Miscellaneous Medications [Patient Comments] , (Reported) PATIENT STATES HE IS SCHEDULED FOR SURGERY 05/03/2018 AND HE WAS TOLD BY HIS PHYSICIAN TO DISCONTINUE HIS WARFARIN 5 DAYS PRIOR TO THE DATE. Allergies Coded Allergies: Clopidogrel (Unverified Allergy, Mild, RASH, 10/20/17) Rosuvastatin (Unverified Allergy, Mild, ITCHING, 10/20/17) ILEANA BELTRÁN MD May 05, 2018 15:13
--- NOTE | 2018-05-08 14:57 | RO ---
DATE OF PROCEDURE: 04/29/2018 PREPROCEDURE DIAGNOSIS: POSTPROCEDURE DIAGNOSIS: PROCEDURE: SURGEON: Dr. Roxanne Jones. LEAD ANDROID DEVELOPER: ANESTHESIA: 2 mL of lidocaine 1% and epinephrine DESCRIPTION OF PROCEDURE: Consent for arthrocentesis risks and benefits were discussed with the patient and a written consent was obtained and signed on the chart. The right knee was prepped in a sterile manner. Anesthesia of 2 mL of lidocaine 1% and epinephrine was used. Site was marked and prepped in a sterile fashion. A wheal of lidocaine was placed and this was then introduced into the joint space. Fluid was then removed from joint space. Samples were sent to the lab for analysis. The fluid removed was yellow in color. The amount of fluid removed was roughly 3 mL. ESTIMATED BLOOD LOSS: None. COMPLICATION: The patient tolerated the procedure without complication. My faculty preceptor for this patient encounter was physically present during the encounter and was fully available. All aspects of the patient interview, examination, medical decision making process, and medical care plan development were reviewed and approved by the faculty preceptor. The faculty preceptor is aware and concurs with the plan as stated in the body of this note and will attest to such by his/her co-signature.
== END 2018-05-05 14:45 | disposition home or self-care (01) | DRG 872 ==
LOC: M ED 17:42 → M ED INP 04-29 01:47 → M MS5PR 04-29 03:16 → OBSVTOIN 05-01 16:36
PROVIDERS: ADMIT Internal Medicine; ATTEND Internal Medicine
PROC: 0S9D3ZX Drainage of Left Knee Joint, Percutaneous Approach, Diagnostic (ICD-10-PCS; principal; 2018-04-29)
DX: A41.9 Sepsis, unspecified organism (principal); L03.115 Cellulitis of right lower limb; K22.4 Dyskinesia of esophagus; I25.10 Atherosclerotic heart disease of native coronary artery without angina pectoris; K21.9 Gastro-esophageal reflux disease without esophagitis; I10 Essential (primary) hypertension; F39 Unspecified mood [affective] disorder; J44.9 Chronic obstructive pulmonary disease, unspecified; E11.40 Type 2 diabetes mellitus with diabetic neuropathy, unspecified; Z79.4 Long term (current) use of insulin; Z79.82 Long term (current) use of aspirin; Z79.01 Long term (current) use of anticoagulants; Z79.899 Other long term (current) drug therapy; Z88.8 Allergy status to other drugs, medicaments and biological substances; Z87.891 Personal history of nicotine dependence; Z86.711 Personal history of pulmonary embolism; Z79.891 Long term (current) use of opiate analgesic; Z98.1 Arthrodesis status; Z86.718 Personal history of other venous thrombosis and embolism

== ENCOUNTER → 2018-05-24 | Outpatient (REF) | payer MEDICARE, MEDICAID ==
[~2018-05-24] MED LIST changes: +AUGM875T28 PO; +BACT800T5 PO; +DOXY-350 PO; +MELA10CA PO; +PATIENT COMMENTS; +WARF-22 PO; +[UNRECOGNIZED DRUG - CODE] PO
[2018-05-24 17:33] LABS: INR 1.61; PROTHROMBIN TIME 19.4 SECONDS (12.1-14.4)
== END ==
LOC: M SFHCCAPE 11:19
PROVIDERS: ATTEND Physician Assistant
DX: Z51.81 Encounter for therapeutic drug level monitoring (principal); Z79.01 Long term (current) use of anticoagulants
CPT/HCPCS: 36415; 85610; G0463

== ENCOUNTER → 2018-05-31 | Outpatient (REF) | payer MEDICARE, MEDICAID ==
[2018-05-31 17:35] LABS: INR 1.81; PROTHROMBIN TIME 21.3 SECONDS (12.1-14.4)
== END ==
LOC: M SFHCCAPE 08:57
PROVIDERS: ATTEND Physician Assistant
DX: I25.10 Atherosclerotic heart disease of native coronary artery without angina pectoris (principal); Z79.01 Long term (current) use of anticoagulants

== ENCOUNTER → 2018-06-07 | Outpatient (REF) | payer MEDICARE, MEDICAID ==
[2018-06-07 17:25] LABS: BASO # 0.1 10^3/uL (0.0-0.2); BASO % 0.7 % (0.0-1.0); EOS # 0.1 10^3/uL (0.0-0.50); EOS % 1.4 % (0.0-3.0); HEMATOCRIT 44.8 % (42.0-52.0); HEMOGLOBIN 14.9 g/dl (13.5-17.5); LYMPH # 2.1 10^3/uL (1.5-4.5); LYMPH % 25.7 % (24.0-44.0); MEAN CORPUSCULAR HEMOGLOBIN 29.6 pg (27.0-33.0); MEAN CORPUSCULAR HGB CONC 33.3 g/dl (32.0-36.5); MEAN CORPUSCULAR VOLUME 89.1 fl (80.0-96.0); MONO # 0.6 10^3/uL (0.0-0.8); NEUTROPHILS # 5.1 10^3/uL (1.8-7.7); NEUTROPHILS % 64.1 % (36.0-66.0); PLATELET COUNT, AUTOMATED 191 10^3/uL (150-450); RED BLOOD COUNT 5.03 10^6/uL (4.30-6.10)
[2018-06-07 17:30] LABS: ALBUMIN 4.2 GM/DL (3.2-5.2); ALT/SGPT 36 U/L (12-78); BILIRUBIN,TOTAL 0.3 MG/DL (0.2-1.0); BLOOD UREA NITROGEN 13 MG/DL (7-18); C REACTIVE PROTEIN QUANTITATIV 0.39 MG/DL (0.00-0.30); CALCIUM LEVEL 8.7 MG/DL (8.5-10.1); CARBON DIOXIDE LEVEL 28 MEQ/L (21-32); CHLORIDE LEVEL 101 MEQ/L (98-107); CREATININE FOR GFR 0.92 MG/DL (0.70-1.30); GLOMERULAR FILTRATION RATE > 60.0 (>56); GLUCOSE, FASTING 170 MG/DL (70-100); POTASSIUM SERUM 4.7 MEQ/L (3.5-5.1); SODIUM LEVEL 136 MEQ/L (136-145); TOTAL PROTEIN 7.6 GM/DL (6.4-8.2)
[2018-06-07 17:42] LABS: INR 2.26; PROTHROMBIN TIME 25.4 SECONDS (12.1-14.4)
[2018-06-07 19:15] LABS: ERYTHROCYTE SEDIMENTATION RATE 13 mm/hr (0-20)
== END ==
LOC: M SFHCPLAZ 07:31
PROVIDERS: ATTEND Internal Medicine Infectious Disease
DX: M70.41 Prepatellar bursitis, right knee (principal); Z51.81 Encounter for therapeutic drug level monitoring; Z79.01 Long term (current) use of anticoagulants; Z86.718 Personal history of other venous thrombosis and embolism

== ENCOUNTER → 2018-06-14 | Outpatient (REF) | payer MEDICARE, MEDICAID ==
[2018-06-14 17:37] LABS: INR 2.55
== END ==
LOC: M SFHCCAPE 08:06
PROVIDERS: ATTEND Physician Assistant
DX: I25.10 Atherosclerotic heart disease of native coronary artery without angina pectoris (principal)

== ENCOUNTER → 2018-06-21 | Outpatient (REF) | payer MEDICARE, MEDICAID ==
[2018-06-21 18:57] LABS: BASO # 0.1 10^3/uL (0.0-0.2); BASO % 0.7 % (0.0-1.0); EOS # 0.2 10^3/uL (0.0-0.50); EOS % 2.1 % (0.0-3.0); HEMATOCRIT 43.9 % (42.0-52.0); HEMOGLOBIN 14.7 g/dl (13.5-17.5); LYMPH # 2.2 10^3/uL (1.5-4.5); LYMPH % 28.4 % (24.0-44.0); MEAN CORPUSCULAR HEMOGLOBIN 30.2 pg (27.0-33.0); MEAN CORPUSCULAR HGB CONC 33.5 g/dl (32.0-36.5); MEAN CORPUSCULAR VOLUME 90.1 fl (80.0-96.0); MONO # 0.7 10^3/uL (0.0-0.8); MONO % 8.6 % (0.0-5.0); NEUTROPHILS # 4.6 10^3/uL (1.8-7.7); NEUTROPHILS % 60.1 % (36.0-66.0); PLATELET COUNT, AUTOMATED 193 10^3/uL (150-450); RED BLOOD COUNT 4.87 10^6/uL (4.30-6.10); WHITE BLOOD COUNT 7.6 10^3/uL (4.0-10.0)
[2018-06-21 19:34] LABS: INR 2.41; PROTHROMBIN TIME 26.8 SECONDS (12.1-14.4)
[2018-06-21 19:52] LABS: ERYTHROCYTE SEDIMENTATION RATE 12 mm/hr (0-20)
== END ==
LOC: M SFHCPLAZ 07:34
PROVIDERS: ATTEND Internal Medicine Infectious Disease
DX: I25.10 Atherosclerotic heart disease of native coronary artery without angina pectoris (principal); L03.115 Cellulitis of right lower limb; Z51.81 Encounter for therapeutic drug level monitoring; Z79.01 Long term (current) use of anticoagulants

== ENCOUNTER → 2018-06-28 | Outpatient (REF) | payer MEDICARE, MEDICAID ==
[~2018-06-28] MED LIST changes: -ASPI1TAB PO; +ASPI81TA26 PO; -DILT180C74 PO; +DILT1CAP3 PO
[2018-06-28 16:48] LABS: INR 2.35; PROTHROMBIN TIME 26.2 SECONDS (12.1-14.4)
== END ==
LOC: M SFHCCAPE 07:41
PROVIDERS: ATTEND Physician Assistant
DX: I25.10 Atherosclerotic heart disease of native coronary artery without angina pectoris (principal); Z51.81 Encounter for therapeutic drug level monitoring; Z79.01 Long term (current) use of anticoagulants

== ENCOUNTER → 2018-07-12 | Outpatient (REF) | payer MEDICARE, MEDICAID ==
[2018-07-12 17:05] LABS: INR 2.34; PROTHROMBIN TIME 26.1 SECONDS (12.1-14.4)
== END ==
LOC: M SFHCCAPE 07:25
PROVIDERS: ATTEND Physician Assistant
DX: Z51.81 Encounter for therapeutic drug level monitoring (principal); Z79.01 Long term (current) use of anticoagulants; Z86.718 Personal history of other venous thrombosis and embolism

== ENCOUNTER → 2018-07-13 | Outpatient (CLI) | payer MEDICARE, MEDICAID ==
[~2018-07-13] MED LIST changes: +ISOVUE-370 76% 125ML VIAL (Q9967 PER ML) As Ordered ONE
--- NOTE | 2018-07-13 12:07 | REP ---
CT ANGIOGRAPHY OF THE ABDOMEN AND PELVIS WITH IV CONTRAST: HISTORY: Gastroesophageal reflux disease with esophagitis. Chronic abdominal pain. Risk factors for atherosclerosis. Evaluate celiac axis, SMA, and RENATA. Periumbilical pain. Diffuse acute reversible ischemia. Comparison CT study June 07, 2017. CT contrast dose 100 mL of intravenous Isovue 370. NONVASCULAR CT FINDINGS: Digital preliminary herbicide service sales representative radiograph demonstrates a normal bowel gas pattern. The lung bases are clear. There is mild diffuse fatty infiltration of the liver. There are two small cysts in the right kidney, largest of which measures 2 cm in greatest diameter. The cecum appears to be mesenteric in the right mid abdomen somewhat anteriorly. Normal appendix. VASCULAR CT FINDINGS: The suprarenal abdominal aorta is unremarkable. There is moderate vascular calcification in the infrarenal abdominal aorta and bilaterally in the common iliac arteries. Singular non-stenotic renal arteries are noted bilaterally. Proximal celiac artery, the superior mesenteric artery, and the proximal inferior mesenteric artery are widely patent. No evidence of visceral artery stenosis. No arterial anatomic variant is appreciated. Maximal intensity projection images demonstrate normal SMA and celiac axis branches. 3D surface rendered color images show no additional finding. IMPRESSION: There is aortoiliac vascular calcification. No visceral arterial abnormality. Electronically Signed by Rambo Urrutia MD 07/13/2018 01:08 P
== END ==
LOC: M RAD 09:05
PROVIDERS: ATTEND Internal Medicine Gastroenterology
DX: K21.0 Gastro-esophageal reflux disease with esophagitis (principal); R10.11 Right upper quadrant pain; K55.012 Diffuse acute (reversible) ischemia of small intestine; I70.0 Atherosclerosis of aorta
CPT/HCPCS: 74174; Q9967

== ENCOUNTER 2018-07-24 06:44 | Day surgery (SDC) | payer MEDICARE, MEDICAID ==
[~2018-07-24] VITALS: Ht 190.5 cm; Wt 117.5 kg
[~2018-07-24 06:44] MED LIST changes: -ISOVUE-370 76% 125ML VIAL (Q9967 PER ML) As Ordered ONE
[2018-07-24] MEDS ORDERED: SIMETHICONE 40MG/0.6ML DROPS 30ML As Ordered ONE (06:58)
[2018-07-24] MEDS ORDERED: NS 1,000 ML IV ONE (07:00)
[2018-07-24] MEDS ORDERED: LIDOCAINE 2% INJ 100 MG/5 ML SDV (FOR ANES.) As Ordered ONE (07:10)
[2018-07-24] MEDS ORDERED: PROPOFOL 200 MG/20 ML VIAL As Ordered ONE (07:10)
[2018-07-24 08:02] VITALS: BP 129/74
--- NOTE | 2018-07-24 08:13 | ROOR ---
Patient Name: Nilton Mcwilliams Procedure Date: 07/24/2018 7:37 AM Date of : 1960 Age: 57 Room: [facility] Gender: Male Note Status: Finalized Procedure: Upper GI endoscopy Indications: Epigastric abdominal pain, Dysphagia Providers: Garrick Jimenes MD Referring MD: KATHERINE Cary [id number] Requesting Provider: Medicines: Monitored Anesthesia Care Complications: No immediate complications. Procedure: Pre-Anesthesia Assessment: - Prior to the procedure, a History and Physical was performed, and patient medications and allergies were reviewed. The patient is competent. The risks and benefits of the procedure and the sedation options and risks were discussed with the patient. All questions were answered and informed consent was obtained. Patient identification and proposed procedure were verified by the physician, the nurse and the anesthesiologist in the procedure room. Mental Status Examination: alert and oriented. Airway Examination: normal oropharyngeal airway and neck mobility. Respiratory Examination: clear to auscultation. CV Examination: normal. Prophylactic Antibiotics: The patient does not require prophylactic antibiotics. Prior Anticoagulants: The patient has taken no previous anticoagulant or antiplatelet agents. ASA Grade Assessment: III - A patient with severe systemic disease. After reviewing the risks and benefits, the patient was deemed in satisfactory condition to undergo the procedure. The anesthesia plan was to use monitored anesthesia care (MAC). Immediately prior to administration of medications, the patient was re-assessed for adequacy to receive sedatives. The heart rate, respiratory rate, oxygen saturations, blood pressure, adequacy of pulmonary ventilation, and response to care were monitored throughout the procedure. The physical status of the patient was re-assessed after the procedure. The Endoscope was introduced through the mouth, and advanced to the second part of duodenum. Findings: No endoscopic abnormality was evident in the esophagus to explain the patient's complaint of dysphagia. It was decided, however, to proceed with dilation of the upper third of the esophagus and at the lower esophageal sphincter. A TTS dilator was passed through the scope. Dilation with an 18-19-20 mm balloon dilator was performed to 20 mm. The dilation site was examined following endoscope reinsertion and showed no bleeding, mucosal tear or perforation. Patchy moderate inflammation characterized by erosions and granularity was found in the gastric antrum. Biopsies were taken with a cold forceps for Helicobacter pylori testing. Verification of patient identification for the specimen was done by the physician and nurse using the patient's name, date and medical record number. Estimated blood loss was minimal. No gross lesions were noted in the duodenal bulb and in the second portion of the duodenum. Biopsies for histology were taken with a cold forceps for evaluation of celiac disease. Impression: - No endoscopic esophageal abnormality to explain patient's dysphagia. Esophagus dilated. Dilated. - Gastritis. Biopsied. - No gross lesions in the duodenal bulb and in the second portion of the duodenum. Biopsied. Recommendation: - Patient has a contact number available for emergencies. The signs and symptoms of potential delayed complications were discussed with the patient. Return to normal activities tomorrow. Written discharge instructions were provided to the patient. - Resume previous diet. - Continue present medications. - Await pathology results. - Telephone GI clinic for pathology results in 2 weeks. - Return to primary care physician. Garrick Jimenes MD Garrick Jimenes MD 07/24/2018 8:12:44 AM Electronically signed by Garrick Jimenes MD Number of Addenda: 0 Note Initiated On: 07/24/2018 7:37 AM Estimated Blood Loss: Estimated blood loss was minimal.
== END 2018-07-24 08:22 | disposition home or self-care (01) ==
LOC: M OPP 06:44
PROVIDERS: ATTEND Internal Medicine Gastroenterology
DX: K29.70 Gastritis, unspecified, without bleeding (principal); R13.10 Dysphagia, unspecified; R10.13 Epigastric pain

== ENCOUNTER → 2018-07-31 | Outpatient (REF) | payer MEDICARE, MEDICAID ==
[2018-07-31 17:36] LABS: INR 1.63; PROTHROMBIN TIME 19.6 SECONDS (12.1-14.4)
== END ==
LOC: M SFHCCAPE 07:25
PROVIDERS: ATTEND Physician Assistant
DX: I25.10 Atherosclerotic heart disease of native coronary artery without angina pectoris (principal); Z51.81 Encounter for therapeutic drug level monitoring; Z79.01 Long term (current) use of anticoagulants

== ENCOUNTER → 2018-08-14 | Outpatient (REF) | payer MEDICARE, MEDICAID ==
[2018-08-14 18:28] LABS: BASO # 0.1 10^3/uL (0.0-0.2); BASO % 0.6 % (0.0-1.0); EOS # 0.1 10^3/uL (0.0-0.50); EOS % 1.6 % (0.0-3.0); HEMATOCRIT 45.1 % (42.0-52.0); HEMOGLOBIN 14.8 g/dl (13.5-17.5); LYMPH # 1.9 10^3/uL (1.5-4.5); MEAN CORPUSCULAR HEMOGLOBIN 29.6 pg (27.0-33.0); MEAN CORPUSCULAR HGB CONC 32.8 g/dl (32.0-36.5); MEAN CORPUSCULAR VOLUME 90.2 fl (80.0-96.0); MONO # 0.6 10^3/uL (0.0-0.8); MONO % 6.6 % (0.0-5.0); NEUTROPHILS # 6.1 10^3/uL (1.8-7.7); NEUTROPHILS % 68.9 % (36.0-66.0); PLATELET COUNT, AUTOMATED 205 10^3/uL (150-450); WHITE BLOOD COUNT 8.8 10^3/uL (4.0-10.0)
[2018-08-14 18:35] LABS: INR 2.26; PROTHROMBIN TIME 25.4 SECONDS (12.1-14.4)
[2018-08-14 19:04] LABS: HEMOGLOBIN A1c 7.7 %
[2018-08-14 19:07] LABS: ALBUMIN 4.1 GM/DL (3.2-5.2); ALT/SGPT 35 U/L (12-78); BILIRUBIN,TOTAL 0.3 MG/DL (0.2-1.0); BLOOD UREA NITROGEN 15 MG/DL (7-18); CALCIUM LEVEL 8.9 MG/DL (8.5-10.1); CARBON DIOXIDE LEVEL 27 MEQ/L (21-32); CHLORIDE LEVEL 105 MEQ/L (98-107); CHOLESTEROL LEVEL 120 MG/DL (<200); CHOLESTEROL RISK RATIO 2.857 (<5); CREATININE FOR GFR 1.07 MG/DL (0.70-1.30); GLOMERULAR FILTRATION RATE > 60.0 (>56); GLUCOSE, FASTING 203 MG/DL (70-100); HDL CHOLESTEROL 42 MG/DL (>40); LDL CHOLESTEROL 51 MG/DL (<100); NON-HDL-C 78 MG/DL; POTASSIUM SERUM 4.9 MEQ/L (3.5-5.1); SODIUM LEVEL 135 MEQ/L (136-145); TOTAL PROTEIN 7.4 GM/DL (6.4-8.2); TRIGLYCERIDES LEVEL 133 MG/DL (<150)
[2018-08-14 19:08] LABS: FREE T4 1.02 NG/DL (0.76-1.46)
[2018-08-14 19:53] LABS: CREATININE, URINE 18.3 MG/DL; MALB URINE SIEMENS < 5.0 MG/L; MAU/CREAT RATIO 27.3 MCG/MG (0.0-30.0)
== END ==
LOC: M SFHCCAPE 07:34
PROVIDERS: ATTEND Physician Assistant
DX: E11.8 Type 2 diabetes mellitus with unspecified complications (principal); G47.00 Insomnia, unspecified; I25.10 Atherosclerotic heart disease of native coronary artery without angina pectoris; Z51.81 Encounter for therapeutic drug level monitoring; Z79.01 Long term (current) use of anticoagulants

== ENCOUNTER → 2018-08-21 | Outpatient (REF) | payer OTHER ==
[2018-08-21 16:59] LABS: INR 2.25; PROTHROMBIN TIME 25.3 SECONDS (12.1-14.4)
== END ==
LOC: M SFHCCAPE 07:19
PROVIDERS: ATTEND Physician Assistant
DX: I25.10 Atherosclerotic heart disease of native coronary artery without angina pectoris (principal)

== ENCOUNTER → 2018-08-28 | Outpatient (REF) | payer OTHER ==
[2018-08-28 18:56] LABS: INR 2.6; PROTHROMBIN TIME 28.4 SECONDS (12.1-14.4)
== END ==
LOC: M SFHCCAPE 10:40
PROVIDERS: ATTEND Physician Assistant
DX: I25.10 Atherosclerotic heart disease of native coronary artery without angina pectoris (principal)

== ENCOUNTER → 2018-09-01 | Outpatient (REF) | payer OTHER | LOC: M SFHCCLAY 13:40 | PROVIDERS: ATTEND Nurse Practitioner Family | DX: J02.9 Acute pharyngitis, unspecified (principal) ==

== ENCOUNTER → 2018-09-11 | Outpatient (REF) | payer OTHER ==
[2018-09-11 20:33] LABS: INR 2.7; PROTHROMBIN TIME 29.3 SECONDS (12.1-14.4)
== END ==
LOC: M SFHCCAPE 07:32
PROVIDERS: ATTEND Physician Assistant
DX: I25.10 Atherosclerotic heart disease of native coronary artery without angina pectoris (principal)

== ENCOUNTER → 2018-09-11 | Outpatient (REF) | payer OTHER, MEDICAID | LOC: M LABDRWCV 17:09 | PROVIDERS: ATTEND Internal Medicine Gastroenterology | DX: R10.13 Epigastric pain (principal); R10.11 Right upper quadrant pain ==

== ENCOUNTER → 2018-10-09 | Outpatient (REF) | payer MEDICARE, MEDICAID ==
[2018-10-09 19:29] LABS: INR 2.4
== END ==
LOC: M SFHCCAPE 07:29
PROVIDERS: ATTEND Physician Assistant
DX: I25.10 Atherosclerotic heart disease of native coronary artery without angina pectoris (principal)

== ENCOUNTER → 2018-11-06 | Outpatient (REF) | payer MEDICARE, MEDICAID ==
[~2018-11-06] MED LIST changes: +PROT1TAB2 PO
[2018-11-06 16:46] LABS: INR 3.56; PROTHROMBIN TIME 35.6 SECONDS (11.8-14.0)
== END ==
LOC: M SFHCCAPE 08:28
PROVIDERS: ATTEND Physician Assistant
DX: I25.10 Atherosclerotic heart disease of native coronary artery without angina pectoris (principal)

== ENCOUNTER 2018-11-13 22:11 | Emergency (ER) | payer MEDICARE, MEDICAID ==
[~2018-11-13] VITALS: Ht 188 cm; Wt 127.3 kg
[2018-11-13 22:11] VITALS: BP 141/70
[~2018-11-13 22:11] MED LIST changes: -BUPR300T34 PO; +BUPR300T92 PO; -DOK100TA; +DOK100TA PO; -LORA1TAB12 PO; +LORA1TAB4 PO; -OMEP40CA2 PO; +OMEP40CA97 PO; -PROT1TAB2 PO
[2018-11-13] MEDS ORDERED: PROT1TAB2 PO (22:21)
[2018-12-30] MEDS ORDERED: LORA2TAB14 PO (13:14)
[2019-02-28] MEDS ORDERED: LOVE0.8I3 SC (15:49)
== END 2018-11-13 23:50 | disposition left against medical advice (07) ==
LOC: M ED 22:11
DX: M79.671 Pain in right foot (principal); Z53.21 Procedure and treatment not carried out due to patient leaving prior to being seen by health care provider

== ENCOUNTER → 2018-11-14 | Outpatient (REF) | payer MEDICARE, MEDICAID ==
[~2018-11-14] MED LIST changes: +BUPR300T34 PO; -BUPR300T92 PO; +DOK100TA; -DOK100TA PO; +LORA1TAB12 PO; -LORA1TAB4 PO; +OMEP40CA2 PO; -OMEP40CA97 PO; +PROT1TAB2 PO
[2018-11-14 17:37] LABS: INR 2.61; PROTHROMBIN TIME 27.8 SECONDS (11.8-14.0)
== END ==
LOC: M SFHCCAPE 07:27
PROVIDERS: ATTEND Physician Assistant
DX: Z79.01 Long term (current) use of anticoagulants (principal)

== ENCOUNTER → 2018-11-27 | Outpatient (REF) | payer MEDICARE, MEDICAID ==
[2018-11-27 17:43] LABS: INR 1.43; PROTHROMBIN TIME 17.2 SECONDS (11.8-14.0)
== END ==
LOC: M SFHCCAPE 07:47
PROVIDERS: ATTEND Physician Assistant
DX: I25.10 Atherosclerotic heart disease of native coronary artery without angina pectoris (principal)

== ENCOUNTER → 2018-12-04 | Outpatient (REF) | payer MEDICARE, MEDICAID ==
[2018-12-04 16:45] LABS: INR 2.34; PROTHROMBIN TIME 25.5 SECONDS (11.8-14.0)
== END ==
LOC: M SFHCCAPE 07:46
PROVIDERS: ATTEND Physician Assistant
DX: I25.10 Atherosclerotic heart disease of native coronary artery without angina pectoris (principal); Z79.01 Long term (current) use of anticoagulants

== ENCOUNTER → 2018-12-14 | Outpatient (REF) | payer MEDICARE, MEDICAID ==
[~2018-12-14] MED LIST changes: -DOK100TA; +DOK100TA PO; +DOXE25CA PO; +LITH300T2 PO; +LORA2TAB9 PO; +LOVE0.8I3 SC; +MULTCAP PO; +PERC10TA26 PO; +VITA50005 PO
[2018-12-14 17:12] LABS: INR 3.63; PROTHROMBIN TIME 36.2 SECONDS (11.8-14.0)
== END ==
LOC: M SFHCCAPE 08:40
PROVIDERS: ATTEND Physician Assistant
DX: I25.10 Atherosclerotic heart disease of native coronary artery without angina pectoris (principal); Z79.01 Long term (current) use of anticoagulants

== ENCOUNTER → 2018-12-22 | Outpatient (CLI) | payer MEDICARE, MEDICAID ==
[~2018-12-22] MED LIST changes: -BUPR300T34 PO; +BUPR300T92 PO; -LORA1TAB12 PO; +LORA1TAB4 PO; +LORA2TAB14 PO; -LORA2TAB9 PO; -OMEP40CA2 PO; +OMEP40CA97 PO
--- NOTE | 2018-12-22 14:24 | REP ---
CT of the chest without contrast Indication: Luz lobular emphysema. Comparison: CTA chest of 04/28/2018. Technique: Axial CT of the chest was performed from the thoracic inlet to the upper abdomen. No intravenous contrast was administered. Coronal and sagittal soft soft tissue reformatted images, axial lung reformatted images and coronal MIP images were provided. Findings: Lungs: There is paraseptal emphysema, most notably within the upper lobes. There is an unchanged 3 mm nodular opacity within the right lower lobe at the diaphragm on image 88. There is no suspicious nodule. There is no consolidation. There is no pleural effusion. Lymph nodes: There is no axillary mediastinal lymphadenopathy. Similar small mediastinal lymph nodes are present. Mediastinum: Partially imaged thyroid is within normal limits. Heart size is normal. Note is made of coronary artery calcification. There is no pericardial effusion. Upper abdomen: The liver is diffusely hypodense, suggestive of steatosis. There is a partially imaged hypoattenuating right renal lesion, likely representing a cyst. There is no adrenal nodule. There are scattered small upper abdominal and retrocrural lymph nodes. Musculoskeletal structures: No suspicious focal osseous lesion is identified. Impression: Upper lobe predominant paraseptal emphysema. Unchanged right mm nodular opacity within the right lung base. Electronically Signed by James Colmenares MD 12/22/2018 02:15 P
== END ==
LOC: M RAD 13:14
PROVIDERS: ATTEND Physician Assistant
DX: J43.1 Panlobular emphysema (principal); R91.8 Other nonspecific abnormal finding of lung field

== ENCOUNTER 2018-12-30 10:15 | Inpatient (IN) | payer MEDICARE, MEDICAID ==
[~2018-12-30] VITALS: Ht 188 cm; Wt 124.0 kg
[~2018-12-30 10:15] MED LIST changes: +BUPR300T34 PO; -BUPR300T92 PO; -DOXE25CA PO; -LITH300T2 PO; +LORA1TAB12 PO; -LORA1TAB4 PO; -LORA2TAB14 PO; -LOVE0.8I3 SC; -MULTCAP PO; +OMEP40CA2 PO; -OMEP40CA97 PO; -PERC10TA26 PO; -VITA50005 PO
[2018-12-30 10:58] LABS: BASO % 0.4 % (0.0-1.0); EOS # 0.1 10^3/uL (0.0-0.5); EOS % 1.4 % (0.0-3.0); HEMATOCRIT 42.8 % (42.0-52.0); HEMOGLOBIN 14.3 g/dl (13.5-17.5); LYMPH # 1.7 10^3/uL (1.5-5.0); LYMPH % 18.2 % (24.0-44.0); MEAN CORPUSCULAR HEMOGLOBIN 30.4 pg (27.0-33.0); MEAN CORPUSCULAR HGB CONC 33.4 g/dl (32.0-36.5); MEAN CORPUSCULAR VOLUME 91.1 fl (80.0-96.0); MONO # 0.6 10^3/uL (0.0-0.8); MONO % 6.7 % (0.0-5.0); NEUTROPHILS # 6.8 10^3/uL (1.5-8.5); PLATELET COUNT, AUTOMATED 209 10^3/uL (150-450); WHITE BLOOD COUNT 9.4 10^3/uL (4.0-10.0)
[2018-12-30 11:14] LABS: D-DIMER QUANT 529.49 ng/ml (<500)
[2018-12-30] MEDS ORDERED: ONDANSETRON 4MG/2ML VIAL (J2405) IV ONE (11:15)
[2018-12-30] MEDS ORDERED: MORPHINE 4 MG/ML 1ML VIAL/SYRINGE (J2270) IV ONE ×2 (11:15→12:15)
[2018-12-30 11:26] LABS: INR 4.48; PROTHROMBIN TIME 42.8 SECONDS (11.8-14.0)
[2018-12-30 11:28] LABS: PARTIAL THROMBOPLASTIN TIME 74.5 SECONDS (25.0-38.4)
[2018-12-30 11:32] LABS: ALBUMIN 3.7 GM/DL (3.2-5.2); ALT/SGPT 43 U/L (12-78); BILIRUBIN,DIRECT 0.2 MG/DL (0.0-0.2); BILIRUBIN,TOTAL 0.4 MG/DL (0.2-1.0); BLOOD UREA NITROGEN 16 MG/DL (7-18); C REACTIVE PROTEIN QUANTITATIV 1.35 MG/DL (0.00-0.30); CALCIUM LEVEL 8.3 MG/DL (8.5-10.1); CARBON DIOXIDE LEVEL 24 MEQ/L (21-32); CHLORIDE LEVEL 99 MEQ/L (98-107); CREATININE FOR GFR 1.13 MG/DL (0.70-1.30); GLOMERULAR FILTRATION RATE > 60.0 (>56); GLUCOSE, FASTING 459 MG/DL (70-100); POTASSIUM SERUM 4.7 MEQ/L (3.5-5.1); SODIUM LEVEL 133 MEQ/L (136-145); TOTAL PROTEIN 7.2 GM/DL (6.4-8.2)
[2018-12-30] MEDS ORDERED: DOXE25CA PO (11:38)
[2018-12-30 11:41] LABS: ERYTHROCYTE SEDIMENTATION RATE 40 mm/hr (0-20)
[2018-12-30] MEDS ORDERED: NS 1,000 ML IV ONE (12:15)
[2018-12-30] MEDS ORDERED: ISOVUE-370 76% 100ML VIAL (Q9967) As Ordered ONE (12:21)
[2018-12-30] MEDS ORDERED: PERC10TA26 PO (13:14)
[2018-12-30] MEDS ORDERED: VITA50005 PO (13:14)
[2018-12-30] MEDS ORDERED: WARF4TAB52 PO (13:14)
[2018-12-30] MEDS ORDERED: MULTCAP PO (13:14)
[2018-12-30] MEDS ORDERED: LORA2TAB9 PO (13:14)
[2018-12-30] MEDS ORDERED: LITH300T2 PO (13:14)
--- NOTE | 2018-12-30 13:20 | REP ---
T of the chest with IV contrast, CT pulmonary angiography protocol: Comparisons are the chest CT without IV contrast dated 12/22/[address] of the chest with IV contrast of 04/28/2018. There are no emboli in the pulmonary trunk or central pulmonary arteries. There are no emboli in the pulmonary lobe or segment branches. There are no infiltrates. No pleural effusions. There are no masses. There are no nodules. There are bulla medially in the lung apices bilaterally. This is unchanged. The thoracic aorta is unremarkable. The cardiac size is normal. There is no pericardial effusion. Upper abdomen. There is hepato steatosis. This is unchanged. The visualized areas of the gallbladder, pancreas, spleen, adrenals and renal upper poles are unchanged. There is a right renal upper pole cyst, unchanged. Impression: There are no pulmonary emboli. There are no acute cardiopulmonary findings. Hepato steatosis, unchanged. Right renal upper pole cyst, unchanged. Electronically Signed by Corwin Schroeder MD 12/30/2018 01:11 P
--- NOTE | 2018-12-30 13:31 | REP ---
LEFT LOWER EXTREMITY DUPLEX DOPPLER VENOUS ULTRASOUND: Real-time compression and duplex Doppler interrogation of the left lower extremity deep venous system is performed. 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 The left common femoral and superficial femoral veins compression fully with transducer pressure and demonstrate no intraluminal thrombus. However, there is nonocclusive thrombus in the left popliteal vein. IMPRESSION: Nonocclusive DVT left popliteal vein. Electronically Signed by Corwin Taylor MD 12/31/2018 05:55 P
[2018-12-30] MEDS ORDERED: RAMELTEON 8 MG TAB (ROZEREM) PO PRN (14:00)
[2018-12-30] MEDS ORDERED: HYDROMORPHONE HCL 0.5 MG/ 0.5 ML SYRINGE (J1170 PER 1) IV PRN (14:30)
[2018-12-30] MEDS: PERCOCET 5MG/325MG TAB PO PRN (14:34)
[2018-12-30] MEDS: LORazepam 2 MG TAB PO PRN (14:34)
[2018-12-30] MEDS: HYDROMORPHONE HCL 0.5 MG/ 0.5 ML SYRINGE (J1170 PER 1) IV PRN ×3 (14:47→21:02)
--- NOTE | 2018-12-30 14:58 | HPEPDOC ---
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 He stated that the pain started about a week ago and had progressively gotten much worse and therefore he came in. He has had multiple DVTs in the past with subsequent PE, therefore went on warfarin for life reported. Denies any other complaints apart from pain including fever, chills, nausea, vomiting. In ER, patient was found to have sup ratherapeutic INR of 4.48. Doppler of LLE showed a noncocclusive DVT. PAST MEDICAL HISTORY: Refer to [facility] PAST SURGICAL HISTORY: PCI neck and back surgery SOCIAL HISTORY: Former smoker. Denies alcohol or illicit drug use. FAMILY HISTORY: Mother- Alzheimer's disease and DM ALLERGIES: Please see below. REVIEW OF SYSTEMS: 10 point review of system negative except as stated in [facility] HOME MEDICATIONS: Please see below. PHYSICAL EXAMINATION: General: moderate distress, Alert Eyes: Normal sclera HENT: Atraumatic, neck supple Cardiovascular: Normal rate, normal rhythm Pulmonary: Clear to auscultation b/l, no wheezing GI: Soft, nontender, nondistended Extremity: LLE tense with severe tenderness on palpation, slightly warm to touch but no erythema. Skin: Warm and dry Neuro: CN grossly intact. No focal deficits. Strengths equal b/l. Psych: oriented x 3 LABORATORY DATA: See below. IMAGING: LLE US- IMPRESSION: Nonocclusive DVT left popliteal vein. CT chest angio- Impression: There are no pulmonary emboli. There are no acute cardiopulmonary findings. Hepato steatosis, unchanged. Right renal upper pole cyst, unchanged. MICROBIOLOGY: Please see below. ASSESSMENT AND PLAN: 1. LLE DVT - Non occlusive thrombus, does not note acuity. 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 - Has been on warfarin for many years. - INR supratherapeutic >4, should not develop new clots in setting of this INR. - Cannot rule out scenarios of intermittent compliance vs failed anticoagulation. - Discussed with Oncology Dr. Mullins. Will repeat INR, if still elevated with reverse with vitamin K then restart Lovenox when INR is lowered. - Will need output with Heme/Onc as outpatient post discharge. - Pain control. Dilaudid PRN given patient's chronic opiate use. 2. CAD - resume home medications. - warfarin held. 3. DM - Uncontrolled DM despite being on 70 units Lantus BID at home with metformin. - Unsure if patient actually is compliant as reported? Will start with that for now and titrate up as needed. 4. HLD - Resume home med. 5. hx Esophageal spasm Code status: Full code Vital Signs Vital Signs Date Time Temp Pulse Resp B/P (MAP) Pulse Ox O2 Delivery O2 Flow Rate FiO2 12/30/18 14:34 18 12/30/18 12:04 114 147/98 (114) 97 Room Air 12/30/18 10:16 98.2 Laboratory Data Labs 24H Laboratory Tests 2 12/30/18 10:44: Immature Granulocyte % (Auto) 0.3, White Blood Count 9.4, Red Blood Count 4.70, Hemoglobin 14.3, Hematocrit 42.8, Mean Corpuscular Volume 91.1, Mean Corpuscular Hemoglobin 30.4, Mean Corpuscular Hemoglobin Concent 33.4, Red Cell Distribution Width 13.2, Platelet Count 209, Neutrophils (%) (Auto) 73.0H, Lymphocytes (%) (Auto) 18.2L, Monocytes (%) (Auto) 6.7H, Eosinophils (%) (Auto) 1.4, Basophils (%) (Auto) 0.4, Neutrophils # (Auto) 6.8, Lymphocytes # (Auto) 1.7, Monocytes # (Auto) 0.6, Eosinophils # (Auto) 0.1, Basophils # (Auto) 0.0, Nucleated Red Blood Cells % (auto) 0.0, Erythrocyte Sedimentation Rate 40H, Prothrombin Time 42.8H, Prothromb Time International Ratio 4.48, Activated Partial Thromboplast Time 74.5H, D-Dimer, Quantitative 529.49H, Anion Gap 10, Glomerular Filtration Rate > 60.0, Calcium Level 8.3L, Aspartate Amino Transf (AST/SGOT) 33, Alanine Aminotransferase (ALT/SGPT) 43, Alkaline Phosphatase 116, Total Bilirubin 0.4, Direct Bilirubin 0.2, C-Reactive Protein, Quantitative 1.35H, Total Protein 7.2, Albumin 3.7, Albumin/Globulin Ratio 1.06 CBC/BMP Laboratory Tests 12/30/18 10:44 Red Blood Count 4.70, Mean Corpuscular Volume 91.1, Mean Corpuscular Hemoglobin 30.4, Mean Corpuscular Hemoglobin Concent 33.4, Red Cell Distribution Width 13.2, Neutrophils (%) (Auto) 73.0 H, Lymphocytes (%) (Auto) 18.2 L, Monocytes (%) (Auto) 6.7 H, Eosinophils (%) (Auto) 1.4, Basophils (%) (Auto) 0.4, Neutrophils # (Auto) 6.8, Lymphocytes # (Auto) 1.7, Monocytes # (Auto) 0.6, Eosinophils # (Auto) 0.1, Basophils # (Auto) 0.0 Home Medications Scheduled Ascorbic Acid (Vitamin C) 500 Mg Cap, 500 MG PO DAILY Aspirin (Aspirin EC) 81 Mg Tab, 81 MG PO DAILY Atorvastatin Calcium (Atorvastatin Calcium) 40 Mg Tab, 40 MG PO DAILY Calcium Carbonate/Vitamin D3 (Calcium 600-Vit D3 200 Tablet) 1 Tab Tab, 2 TAB PO DAILY Diltiazem HCl (Diltiazem 24Hr ER) 180 Mg Cap, 180 MG PO DAILY Doxepin HCl (Doxepin HCl) 25 Mg Capsule, 25 MG PO QHS Ergocalciferol (Vitamin D2) (Vitamin D2) 50,000 Unit Capsule, 50,000 UNIT PO QWEEK THURSDAYS Exenatide Microspheres (Bydureon) 2 Mg Inj, 2 MG SC QWEEK TAKES ON TUESDAY Gabapentin (Gabapentin) 100 Mg Cap, 200 MG PO QHS Insulin Glargine,Hum.rec.anlog (Lantus Solostar) 100 Unit/Ml Inj, 75 UNITS SC BID Insulin Human Lispro (Humalog) 1 Units/0.01 Ml Inj, 1 DOSE SC BID PER SLIDING SCALE [place] Carbonate ([place] Carbonate) 300 Mg Tablet, 300 MG PO QHS Magnesium Oxide (Magnesium Oxide) 250 Mg Tab, 500 MG PO DAILY Melatonin (Melatonin) 10 Mg Cap, 10 MG PO QHS Metformin HCl (Metformin HCl) 1,000 Mg Tab, 1,000 MG PO BID Montelukast Sodium (Montelukast Sodium) 10 Mg Tab, 10 MG PO QHS Multivitamin (Multivitamins) 1 Each Capsule, 1 CAP PO DAILY Sertraline HCl (Sertraline HCl) 100 Mg Tab, 150 MG PO DAILY Warfarin Sodium (Warfarin Sodium) 10 Mg Tablet, 10 MG PO QHS 11MG EVERY OTHER NIGHT Warfarin Sodium (Warfarin Sodium) 1 Mg Tablet, 1 MG PO Q2D QHS: 11MG TOTAL EVERY OTHER NIGHT Scheduled PRN Docusate Sodium (Dok) 100 Mg Tab, 100 MG PO BID PRN for CONSTIPATION Lorazepam (Lorazepam) 2 Mg Tablet, 2 MG PO TID PRN for ANXIETY Oxycodone HCl/Acetaminophen (Percocet 10-325 mg Tablet) 1 Each Tablet, 1 TAB PO Q4H PRN for PAIN Allergies Coded Allergies: clopidogrel (Verified Allergy, Intermediate, rash, 07/17/18) rosuvastatin (Verified Adverse Reaction, Mild, itching, 07/17/18) A-FIB/CHADSVASC A-FIB History Current/History of A-Fib/PAF?: No ROXANA MERAZ MD Dec 30, 2018 14:58
[2018-12-30 15:17] LABS: INR 4.62; PROTHROMBIN TIME 43.9 SECONDS (11.8-14.0)
[2018-12-30] MEDS ORDERED: PHYTONADIONE 5 MG TAB PO ONE (19:30)
[2018-12-30] MEDS ORDERED: PHYTONADIONE 2.5 MG **1/2 TAB PO ONE (19:30)
[2018-12-30 21:00] VITALS: O2SAT 94
[2018-12-30 21:01] VITALS: BP 174/92
[2018-12-30] MEDS: DOXEPIN 25 MG CAP PO SCH (21:03)
[2018-12-30] MEDS: GABAPENTIN 100 MG CAP PO SCH (21:03)
[2018-12-30] MEDS: LITHIUM CARBONATE 300 MG CAP PO SCH (21:03)
[2018-12-30] MEDS: MONTELUKAST 10 MG TAB PO SCH (21:03)
[2018-12-30 21:31] VITALS: BP 142/78
[2018-12-30 22:00] VITALS: O2SAT 92
[2018-12-30 23:00] VITALS: O2SAT 93
[2018-12-30 23:59] VITALS: BP 120/58
[2018-12-31] VITALS (28 sets, daily range): BP systolic 144–178; BP diastolic 74–84; O2SAT 85–98
[2018-12-31] MEDS: HYDROMORPHONE HCL 0.5 MG/ 0.5 ML SYRINGE (J1170 PER 1) IV PRN ×4 (00:14→10:46)
[2018-12-31] MEDS: ACETAMINOPHEN TAB 650MG DOSE (2X325MG) PO PRN ×2 (02:19→17:07)
[2018-12-31 05:31] LABS: HEMATOCRIT 40.3 % (42.0-52.0); HEMOGLOBIN 13.2 g/dl (13.5-17.5); MEAN CORPUSCULAR HEMOGLOBIN 30.1 pg (27.0-33.0); MEAN CORPUSCULAR HGB CONC 32.8 g/dl (32.0-36.5); PLATELET COUNT, AUTOMATED 180 10^3/uL (150-450); RED BLOOD COUNT 4.38 10^6/uL (4.30-6.10); WHITE BLOOD COUNT 9.5 10^3/uL (4.0-10.0)
[2018-12-31 05:42] LABS: INR 4.15; PROTHROMBIN TIME 40.3 SECONDS (11.8-14.0)
[2018-12-31 05:54] LABS: BLOOD UREA NITROGEN 12 MG/DL (7-18); CALCIUM LEVEL 8.2 MG/DL (8.5-10.1); CARBON DIOXIDE LEVEL 27 MEQ/L (21-32); CHLORIDE LEVEL 101 MEQ/L (98-107); CREATININE FOR GFR 0.98 MG/DL (0.70-1.30); GLOMERULAR FILTRATION RATE > 60.0 (>56); GLUCOSE, FASTING 298 MG/DL (70-100); POTASSIUM SERUM 4.1 MEQ/L (3.5-5.1); SODIUM LEVEL 136 MEQ/L (136-145)
[2018-12-31] MEDS ORDERED: GABAPENTIN 300 MG CAP PO ONE (06:15)
[2018-12-31] MEDS: SERTRALINE HCL 50 MG TAB PO SCH (07:35)
[2018-12-31] MEDS: ATORVASTATIN 20 MG TAB PO SCH (07:35)
[2018-12-31] MEDS: ASPIRIN 81 MG ENTERIC TAB PO SCH (07:36)
[2018-12-31] MEDS: MAGNESIUM OXIDE 400 MG TAB (MAG-OX) PO SCH (07:36)
[2018-12-31] MEDS: diltiaZEM **CD** 180 MG CAP PO SCH (07:36)
[2018-12-31] MEDS: ASCORBIC ACID 500 MG TAB PO SCH (07:36)
[2018-12-31] MEDS ORDERED: SLF 3 ML SYR IV PRN (10:00)
[2018-12-31] MEDS ORDERED: GLUCOSE 4 GM CHEW TABLET PO PRN (10:15)
[2018-12-31] MEDS ORDERED: DEXTROSE 50% 50 ML SYRINGE IV PRN (10:15)
[2018-12-31] MEDS ORDERED: GLUCAGON FOR INJ 1 MG VIAL (J1610) SC PRN (10:15)
[2018-12-31] MEDS: SLF 3 ML SYR IV SCH ×2 (10:51→21:03)
[2018-12-31] MEDS: HumaLOG INSULIN (NovoLOG) PER UNIT SC SCH ×3 (11:51→21:01)
[2018-12-31] MEDS ORDERED: PHYTONADIONE 2.5 MG **1/2 TAB PO ONE (13:00)
--- NOTE | 2018-12-31 13:22 | IPNPDOC ---
Date Seen The patient was seen on 12/31/18. Progress Note SUBJECTIVE: Patient appeared slightly more comfortable today. He states that the pain medications do help but he does have periods of pain in between. Denies any other complaints apart from LE pain. Afebrile overnight. BS improved but in 200s range. OBJECTIVE PHYSICAL EXAMINATION: VITAL SIGNS: Please see below. General: mild to moderate distress, Alert Eyes: Normal sclera HENT: Atraumatic, neck supple Cardiovascular: Normal rate, normal rhythm Pulmonary: Clear to auscultation b/l, no wheezing GI: Soft, nontender, nondistended Extremity: LLE tense with moderate tenderness on palpation, slightly warm to touch but no erythema. Skin: Warm and dry Neuro: CN grossly intact. No focal deficits. Strengths equal b/l. Psych: oriented x 3 LABORATORY DATA, IMAGING STUDIES, MICROBIOLOGY: Please see below. ASSESSMENT AND PLAN: 1. LLE DVT - Non occlusive thrombus, does not note acuity. 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 - Has been on warfarin for many years. - INR supratherapeutic >4, should not develop new clots in setting of this INR. - Stated that he is compliant. - Discussed with Oncology Dr. Mullins, give vitamin K to lower INR. Start Lovenox when bleeding risk is lowered. - Will need output with Heme/Onc as outpatient post discharge. - Pain control. Dilaudid PRN given patient's chronic opiate use. 2. CAD - resume home medications. - warfarin held. 3. DM - Reportedly uncontrolled DM despite being on 75 units Lantus BID at home with metformin. - BS had trended down from presentation, 200s. Start on 70 units levemir daily now. titrate up as needed. 4. HLD - Resume home med. 5. hx Esophageal spasm Code status: Full code VS, I&O, 24H, Fishbone Vital Signs/I&O Vital Signs Date Time Temp Pulse Resp B/P (MAP) Pulse Ox O2 Delivery O2 Flow Rate FiO2 12/31/18 12:00 95 Nasal Cannula 2.0 12/31/18 10:46 20 12/31/18 08:00 97.9 94 144/78 (100) I&O- Last 24 Hours up to 6 AM 12/31/18 06:00 Intake Total 2140 ml Output Total 1300 ml Balance 840 ml Laboratory Data 24H LABS Laboratory Tests 2 12/30/18 14:48: Prothrombin Time 43.9H, Prothromb Time International Ratio 4.62 12/30/18 19:46: Bedside Glucose (Misc Panel) 236H 12/31/18 05:03: Prothrombin Time 40.3H, Prothromb Time International Ratio 4.15, Nucleated Red Blood Cells % (auto) 0.0, Anion Gap 8, Glomerular Filtration Rate > 60.0, Blood Urea Nitrogen 12, Creatinine 0.98, Sodium Level 136, Potassium Level 4.1, Chloride Level 101, Carbon Dioxide Level 27, Calcium Level 8.2L 12/31/18 11:30: Bedside Glucose (Misc Panel) 217H CBC/BMP Laboratory Tests 12/31/18 05:03 Red Blood Count 4.38, Mean Corpuscular Volume 92.0, Mean Corpuscular Hemoglobin 30.1, Mean Corpuscular Hemoglobin Concent 32.8, Red Cell Distribution Width 13.4, Calcium Level 8.2 L ROXANA MERAZ MD Dec 31, 2018 13:22
[2018-12-31] MEDS: LEVEMIR (INSULIN DETEMIR) 1 UNITS/0.01ML SC SCH (13:30)
[2018-12-31] MEDS: HYDROmorphone HCL 2 MG/ML 1ML VIAL (J1170) IV PRN ×4 (13:55→23:43)
[2018-12-31] MEDS ORDERED: HYDROmorphone HCL 2 MG/ML 1ML VIAL (J1170) IV ONE (19:00)
[2018-12-31] MEDS: DOXEPIN 25 MG CAP PO SCH (21:01)
[2018-12-31] MEDS: GABAPENTIN 100 MG CAP PO SCH (21:02)
[2018-12-31] MEDS: MONTELUKAST 10 MG TAB PO SCH (21:02)
[2018-12-31] MEDS: LITHIUM CARBONATE 300 MG CAP PO SCH (21:02)
[2019-01-01] VITALS (25 sets, daily range): BP systolic 140–172; BP diastolic 70–94; O2SAT 90–99
[2019-01-01] MEDS: HYDROMORPHONE HCL 0.5 MG/ 0.5 ML SYRINGE (J1170 PER 1) IV PRN ×3 (05:02→19:29)
[2019-01-01] MEDS: SLF 3 ML SYR IV SCH ×2 (05:17→15:38)
[2019-01-01 05:51] LABS: HEMATOCRIT 39.2 % (42.0-52.0); MEAN CORPUSCULAR HEMOGLOBIN 29.8 pg (27.0-33.0); MEAN CORPUSCULAR HGB CONC 33.2 g/dl (32.0-36.5); MEAN CORPUSCULAR VOLUME 89.9 fl (80.0-96.0); PLATELET COUNT, AUTOMATED 183 10^3/uL (150-450); RED BLOOD COUNT 4.36 10^6/uL (4.30-6.10); WHITE BLOOD COUNT 7.5 10^3/uL (4.0-10.0)
[2019-01-01 06:02] LABS: INR 1.74; PROTHROMBIN TIME 20.1 SECONDS (11.8-14.0)
[2019-01-01 06:09] LABS: BLOOD UREA NITROGEN 11 MG/DL (7-18); CALCIUM LEVEL 8.5 MG/DL (8.5-10.1); CARBON DIOXIDE LEVEL 29 MEQ/L (21-32); CHLORIDE LEVEL 104 MEQ/L (98-107); CREATININE FOR GFR 0.74 MG/DL (0.70-1.30); GLOMERULAR FILTRATION RATE > 60.0 (>56); GLUCOSE, FASTING 201 MG/DL (70-100); POTASSIUM SERUM 4.1 MEQ/L (3.5-5.1); SODIUM LEVEL 138 MEQ/L (136-145)
[2019-01-01] MEDS: HumaLOG INSULIN (NovoLOG) PER UNIT SC SCH ×4 (07:30→20:45)
[2019-01-01] MEDS: LEVEMIR (INSULIN DETEMIR) 1 UNITS/0.01ML SC SCH (08:23)
[2019-01-01] MEDS: MAGNESIUM OXIDE 400 MG TAB (MAG-OX) PO SCH (08:23)
[2019-01-01] MEDS: ASCORBIC ACID 500 MG TAB PO SCH (08:23)
[2019-01-01] MEDS: ASPIRIN 81 MG ENTERIC TAB PO SCH (08:23)
[2019-01-01] MEDS: HYDROmorphone HCL 2 MG/ML 1ML VIAL (J1170) IV PRN ×2 (08:23→12:42)
[2019-01-01] MEDS: SERTRALINE HCL 50 MG TAB PO SCH (08:24)
[2019-01-01] MEDS: ATORVASTATIN 20 MG TAB PO SCH (08:24)
[2019-01-01] MEDS: diltiaZEM **CD** 180 MG CAP PO SCH (08:24)
[2019-01-01] MEDS ORDERED: MIRALAX *UNIT DOSE* 17GM PACKET PO PRN (09:00)
[2019-01-01] MEDS ORDERED: MIRALAX *UNIT DOSE* 17GM PACKET PO SCH (09:00)
[2019-01-01] MEDS: LORazepam 2 MG TAB PO PRN ×2 (10:15→17:22)
[2019-01-01] MEDS: PERCOCET 5MG/325MG TAB PO PRN ×2 (10:16→17:22)
[2019-01-01] MEDS ORDERED: POLYETHYLENE GLYCOL (MIRALAX) 238GM BOTTLE PO ONE (12:00)
[2019-01-01] MEDS: ENOXAPARIN 150 MG/ML SYR (J1650) SC SCH (12:42)
--- NOTE | 2019-01-01 17:20 | IPNPDOC ---
Text Note Date of Service The patient was seen on 01/01/19. NOTE Subjective: Patient continues to have left distal leg pain, 7 out of 10. He d enies shortness of breath, palpitations, diarrhea or dysuria Objective: PHYSICAL EXAMINATION: VITAL SIGNS: Please see below. General: mild distress Eyes: Normal sclera HENT: Atraumatic, neck supple Cardiovascular: Normal rate, normal rhythm Pulmonary: Clear to auscultation b/l, no wheezing GI: Soft, nontender, nondistended Extremity: LLE tense with moderate tenderness on palpation, warm to touch but no erythema. Skin: Warm and dry Neuro: CN grossly intact. No focal deficits. Strengths equal b/l. Psych: oriented x 3 Assessment and plan Patient is 58 years old male with past medical history of recurrent DVT and PE who was admitted with left distal leg pain. Patient was found to have non- occlusive blood clot in the left saphenous vein. Patient was found to have INR supratherapeutic more than 4 LLE DVT - Non occlusive thrombus. 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 - Has been on warfarin for many years. - INR supratherapeutic >4 - Oncology team recommended to start Lovenox. Patient will be discharged on the Lovenox 1.5 mg per KG daily. - Will need output with Heme/Onc for coagulation workup - Pain management. Patient complains of the severe left distal leg pain. There is concern for arterial insufficiency. I talked to Dr. Mensah, he will evaluate patient tomorrow CAD - resume home medications. - Lovenox 3. DM -Levemir and insulin sliding scale I will increase the dose of Levemir to 80 units given consistently increased level of glucose to 200 4. HLD - Resume home med 5. hx Esophageal spasm Code status: Full code VS,Fishbone, I+O VS, Fishbone, I+O Laboratory Tests 01/01/19 05:25 Red Blood Count 4.36, Mean Corpuscular Volume 89.9, Mean Corpuscular Hemoglobin 29.8, Mean Corpuscular Hemoglobin Concent 33.2, Red Cell Distribution Width 13.2, Calcium Level 8.5 Vital Signs Date Time Temp Pulse Resp B/P (MAP) Pulse Ox O2 Delivery O2 Flow Rate FiO2 01/01/19 15:38 20 01/01/19 12:00 97.1 105 160/94 (116) 91 01/01/19 10:00 Room Air 12/31/18 23:59 2.0 I&O- Last 24 Hours up to 6 AM 01/01/19 06:00 Intake Total 3295 ml Output Total 5200 ml Balance -1905 ml BELLA NAM DO Jan 01, 2019 17:20
[2019-01-01] MEDS ORDERED: HYDROmorphone HCL 2 MG/ML 1ML VIAL (J1170) IV PRN (19:30)
[2019-01-01] MEDS: MONTELUKAST 10 MG TAB PO SCH (20:44)
[2019-01-01] MEDS: GABAPENTIN 100 MG CAP PO SCH (20:44)
[2019-01-01] MEDS: DOXEPIN 25 MG CAP PO SCH (20:44)
[2019-01-01] MEDS: LITHIUM CARBONATE 300 MG CAP PO SCH (20:44)
[2019-01-02] VITALS (14 sets, daily range): BP systolic 132–155; BP diastolic 71–86; O2SAT 90–97
[2019-01-02] MEDS: SLF 3 ML SYR IV SCH ×2 (00:37→06:02)
[2019-01-02] MEDS: ENOXAPARIN 150 MG/ML SYR (J1650) SC SCH ×2 (00:37→12:05)
[2019-01-02 06:13] LABS: HEMATOCRIT 39.6 % (42.0-52.0); HEMOGLOBIN 13.3 g/dl (13.5-17.5); MEAN CORPUSCULAR HGB CONC 33.6 g/dl (32.0-36.5); MEAN CORPUSCULAR VOLUME 89.2 fl (80.0-96.0); PLATELET COUNT, AUTOMATED 199 10^3/uL (150-450); RED BLOOD COUNT 4.44 10^6/uL (4.30-6.10); WHITE BLOOD COUNT 6.8 10^3/uL (4.0-10.0)
[2019-01-02 06:24] LABS: INR 1.18; PROTHROMBIN TIME 14.8 SECONDS (11.8-14.0)
[2019-01-02 06:39] LABS: BLOOD UREA NITROGEN 10 MG/DL (7-18); CALCIUM LEVEL 8.4 MG/DL (8.5-10.1); CARBON DIOXIDE LEVEL 28 MEQ/L (21-32); CHLORIDE LEVEL 103 MEQ/L (98-107); CREATININE FOR GFR 0.77 MG/DL (0.70-1.30); GLOMERULAR FILTRATION RATE > 60.0 (>56); GLUCOSE, FASTING 178 MG/DL (70-100); SODIUM LEVEL 138 MEQ/L (136-145)
[2019-01-02] MEDS ORDERED: LEVEMIR (INSULIN DETEMIR) 1 UNITS/0.01ML SC SCH (09:00)
[2019-01-02] MEDS: HumaLOG INSULIN (NovoLOG) PER UNIT SC SCH ×2 (09:02→12:04)
[2019-01-02] MEDS: ATORVASTATIN 20 MG TAB PO SCH (09:03)
[2019-01-02] MEDS: ASPIRIN 81 MG ENTERIC TAB PO SCH (09:04)
[2019-01-02] MEDS: PERCOCET 5MG/325MG TAB PO PRN (09:04)
[2019-01-02] MEDS: MAGNESIUM OXIDE 400 MG TAB (MAG-OX) PO SCH (09:05)
[2019-01-02] MEDS: LORazepam 2 MG TAB PO PRN (09:05)
[2019-01-02] MEDS: ASCORBIC ACID 500 MG TAB PO SCH (09:05)
[2019-01-02] MEDS: SERTRALINE HCL 50 MG TAB PO SCH (09:06)
[2019-01-02] MEDS: diltiaZEM **CD** 180 MG CAP PO SCH (09:06)
--- NOTE | 2019-01-02 10:40 | CR.PDOC ---
General Date of Consultation: Jan 02, [address] Mensah. HPI: Patient is a 58M with PMH recurrent DVT/PE on chronic warfarin who presented to the ER with complaints of severe LLE pain 12/30/18. Pt reported that the pain started about a week ago and had progressively gotten much worse and therefore he came to the ED. He has had multiple DVTs in the past with subsequent PE, therefore the pt has been on warfarin AC. In ER, patient was found to have supra therapeutic INR of 4.48. Doppler of LLE showed a non occlusive DVT. Vascular Surgery is consulted Re DVT. Pt states pain in LLE is improved. Denies any fevers, chills, weakness, fatigue, Headache, Chest Pain, Shortness of breath, cough, palpitations, abdominal pain, N/V/D or changes in bowel or bladder habits. PMHx: recurrent DVT/PE on chronic warfarin, CAD s/p PCI, DM, HLD, chronic neck and back pain on chronic percocet, Esophageal spasm PSHX: neck surgery back surgery SOCHX: Tobacco use: denies ETOH: denies FAMHX: denies FH of clotting disorders ROS: As noted in HPI, otherwise 11pt ROS of systems reviewed and unremarkable. PE: GEN: 58yoM, appears stated age. No acute distress. Alert and oriented x 3. HEENT: Normocephalic, atraumatic. Moist mucous membranes. CHEST: Regular rate and rhythm, +S1, +S2 LUNGS: Clear to auscultation bilaterally. No wheezes, rales, or rhonchi. ABD: Round, soft, non-tender, non-distended. EXT: Feet are warm to touch, brisk cap refill. Pulses 2+ bilaterally dorsalis pedis and radial. Mild left lower extremity edema appreciated. Mild TTP in the calf area. No erythema. SKIN: [place], dry, warm. No rashes. NEURO: Alert and oriented x 3. No focal deficits appreciated. A&P: 1. H/O recurrent DVT/PE on chronic warfarin, now with non occlusive DVT LLE. The pt is reviewed and examined as per Dr Mensah. Plan is for conservative mgmt. Elevation/Compression recommended. Pt remains on Lovenox SQ Q12. Plan is for outpt FU with hematology. Outpt FU with Vascular Surgery. Vital Signs/I&O Vital Signs Date Time Temp Pulse Resp B/P (MAP) Pulse Ox O2 Delivery O2 Flow Rate FiO2 01/02/19 09:06 92 146/86 01/02/19 09:04 20 01/02/19 06:00 95 BIPAP/CPAP 01/02/19 04:00 96.6 12/31/18 23:59 2.0 I&O- Last 24 Hours up to 6 AM 01/02/19 06:00 Intake Total 2400 ml Output Total 5600 ml Balance -3200 ml Laboratory Data Labs 24H Laboratory Tests 2 01/01/19 12:14: Bedside Glucose (Misc Panel) 197H 01/01/19 17:06: Bedside Glucose (Misc Panel) 235H 01/01/19 20:29: Bedside Glucose (Misc Panel) 183H 01/02/19 05:39: Nucleated Red Blood Cells % (auto) 0.0, Prothrombin Time 14.8H, Prothromb Time International Ratio 1.18, Anion Gap 7L, Glomerular Filtration Rate > 60.0, Blood Urea Nitrogen 10, Creatinine 0.77, Sodium Level 138, Potassium Level 4.0, Chloride Level 103, Carbon Dioxide Level 28, Calcium Level 8.4L CBC/BMP Laboratory Tests 01/02/19 05:39 Red Blood Count 4.44, Mean Corpuscular Volume 89.2, Mean Corpuscular Hemoglobin 30.0, Mean Corpuscular Hemoglobin Concent 33.6, Red Cell Distribution Width 13.2, Calcium Level 8.4 L Allergies Coded Allergies: clopidogrel (Verified Allergy, Intermediate, rash, 07/17/18) rosuvastatin (Verified Adverse Reaction, Mild, itching, 07/17/18) Home Medications Scheduled Ascorbic Acid (Vitamin C) 500 Mg Cap, 500 MG PO DAILY, (Reported) Aspirin (Aspirin EC) 81 Mg Tab, 81 MG PO DAILY, (Reported) Atorvastatin Calcium (Atorvastatin Calcium) 40 Mg Tab, 40 MG PO DAILY, (Reported) Calcium Carbonate/Vitamin D3 (Calcium 600-Vit D3 200 Tablet) 1 Tab Tab, 2 TAB PO DAILY, (Reported) Diltiazem HCl (Diltiazem 24Hr ER) 180 Mg Cap, 180 MG PO DAILY, (Reported) Doxepin HCl (Doxepin HCl) 25 Mg Capsule, 25 MG PO QHS, (Reported) Ergocalciferol (Vitamin D2) (Vitamin D2) 50,000 Unit Capsule, 50,000 UNIT PO QWEEK, (Reported) THURSDAYS Exenatide Microspheres (Bydureon) 2 Mg Inj, 2 MG SC QWEEK, (Reported) TAKES ON TUESDAY Gabapentin (Gabapentin) 100 Mg Cap, 200 MG PO QHS, (Reported) Insulin Glargine,Hum.rec.anlog (Lantus Solostar) 100 Unit/Ml Inj, 75 UNITS SC BID, (Reported) Insulin Human Lispro (Humalog) 1 Units/0.01 Ml Inj, 1 DOSE SC BID, (Reported) PER SLIDING SCALE Waterproof Carbonate (Waterproof Carbonate) 300 Mg Tablet, 300 MG PO QHS, (Reported) Magnesium Oxide (Magnesium Oxide) 250 Mg Tab, 500 MG PO DAILY, (Reported) Melatonin (Melatonin) 10 Mg Cap, 10 MG PO QHS, (Reported) Metformin HCl (Metformin HCl) 1,000 Mg Tab, 1,000 MG PO BID, (Reported) Montelukast Sodium (Montelukast Sodium) 10 Mg Tab, 10 MG PO QHS, (Reported) Multivitamin (Multivitamins) 1 Each Capsule, 1 CAP PO DAILY, (Reported) Sertraline HCl (Sertraline HCl) 100 Mg Tab, 150 MG PO DAILY, (Reported) Warfarin Sodium (Warfarin Sodium) 10 Mg Tablet, 10 MG PO QHS, (Reported) 11MG EVERY OTHER NIGHT Warfarin Sodium (Warfarin Sodium) 1 Mg Tablet, 1 MG PO Q2D, (Reported) QHS: 11MG TOTAL EVERY OTHER NIGHT Scheduled PRN Docusate Sodium (Dok) 100 Mg Tab, 100 MG PO BID PRN for CONSTIPATION, (Reported) Lorazepam (Lorazepam) 2 Mg Tablet, 2 MG PO TID PRN for ANXIETY, (Reported) Oxycodone HCl/Acetaminophen (Percocet 10-325 mg Tablet) 1 Each Tablet, 1 TAB PO Q4H PRN for PAIN, (Reported) Attending Note Attending Note VASCULAR SURGICAL ATTENDING NOTE: Dr. Latonia Mensah M.D. ASSESSMENT: Patient is a 58 her old male with acute on chronic left lower extremity DVT with significant pain in the left lower extremity. Patient has strongly palpable pulses in the left lower extremity and no signs of arterial insufficiency. Patient does have stigmata of chronic venous insufficiency. Patient states that he has a compression stocking but does not wear it. Patient states pain is significantly improved today. Patient does have a cluster of varicose veins in the left lateral calf where the pain is located. PLAN: Patient does not require any further workup for arterial insufficiency as he has strongly palpable pulses at the dorsalis pedis and posterior tibial distribution in the left lower extremity. Recommendation has been to for the patient to elevate his legs is much as possible as well as warm compresses to the left lateral calf where the pain is located. Patient will follow-up for evaluation as an outpatient in 2-3 weeks. Recommendation was for the patient to wear his compression stockings as much as possible.. Hardeep Brown was the attending vascular surgeon for this patient encounter. The patient was seen, examined, interviewed and evaluated independently by Dr. Austyn Mensah M.D. Dr. Austyn Mensah M.D. was fully available during the consultation evaluation. All aspects of the patient interview, examination, medical decision making process, and medical care plan development were reviewed and approved by Dr. Austyn Mensah M.D. Dr. Austyn Mensah M.D. is aware and concurs with the plan as stated in the body of this note and will attest to such by his/her cosignature. Lurdes Blanca Jan 02, 2019 09:21 Burke Mensah MD Jan 02, 2019 10:58
[2019-01-02] MEDS ORDERED: LOVE0.8I3 SC (11:42)
--- NOTE | 2019-01-02 21:13 | DS.PDOC ---
Discharge Summary General Date of Admission Dec 31, 2018 at 13:11 Date of Discharge 01/02/19 Primary Care Physician: CECILIA POWER PA-C Attending Physician: BELLA NAM DO Discharge Summary PROCEDURES PERFORMED DURING STAY: None. ADMITTING DIAGNOSES: LLE DVT CAD DM HLD hx Esophageal spasm DISCHARGE DIAGNOSES: LLE DVT CAD DM HLD hx Esophageal spasm Varicose veins of legs COMPLICATIONS/CHIEF COMPLAINT: Left Leg Dvt. HISTORY OF PRESENT ILLNESS: Patient is a 58M with PMH recurrent DVT/PE on chronic warfarin, CAD s/p PCI, DM, HLD, chronic neck and back pain on chronic percocet, Esophageal spasm presented to the ER with complaints of severe LLE pa in. He stated that the pain started about a week ago and had progressively gotten much worse and therefore he came in. He has had multiple DVTs in the past with subsequent PE, therefore went on warfarin for life reported. Denies any other complaints apart from pain including fever, chills, nausea, vomiting. In ER, patient was found to have supratherapeutic INR of 4.48. Doppler of LLE showed a noncocclusive DVT. HOSPITAL COURSE: During the hospital course following issue addressed: 1. LLE DVT - Non occlusive thrombus, does not note acuity. 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 - Has been on warfarin for many years. - INR supratherapeutic >4, should not develop new clots in setting of this INR. - Cannot rule out scenarios of intermittent compliance vs failed anticoagulation. -Therapeutic dose of Lovenox initiated, patient should receive self injection of Lovenox in the outpatient settings - Will need output with Heme/Onc as outpatient post discharge for coagulation workup - Pain control. Dilaudid PRN given patient's chronic opiate use. 2. CAD -Patient received his home medications 3. DM -Patient received insulin sliding scale and detemir 4. HLD - Resumed home med. 5. hx Esophageal spasm Pain management DISCHARGE MEDICATIONS: Please see below. ALLERGIES: Please see below. PHYSICAL EXAMINATION: VITAL SIGNS: Please see below. General:NAD Eyes: Normal sclera HENT: Atraumatic, neck supple Cardiovascular: Normal rate, normal rhythm Pulmonary: Clear to auscultation b/l, no wheezing GI: Soft, nontender, nondistended Extremity: LLE tense with moderate tenderness on palpation, warm to touch but no erythema. Skin: Warm and dry Neuro: CN grossly intact. No focal deficits. Strengths equal b/l. Psych: oriented x 3 LABORATORY DATA: Please see below. PROGNOSIS: Favorable ACTIVITY: As tolerated DIET: Diabetes diet DISCHARGE PLAN: Patient will need self inject Lovenox in the outpatient settings. Education was provided DISPOSITION: 01 Home, Self-Care. DISCHARGE INSTRUCTIONS: 1. Follow-up with refueling rampman in one week, follow-up with Dr. Mensah in 1-2 weeks DISCHARGE CONDITION: Stable TIME SPENT ON DISCHARGE: Greater than 20 minutes. Vital Signs/I&Os Vital Signs Date Time Temp Pulse Resp B/P (MAP) Pulse Ox O2 Delivery O2 Flow Rate FiO2 01/02/19 12:00 98.1 90 92 155/71 (99) 21 98.1 01/02/19 12:00 Room Air I&O- Last 24 Hours up to 6 AM 01/02/19 05:59 Intake Total 2400 ml Output Total 5200 ml Balance -2800 ml Laboratory Data Labs 24H Laboratory Tests 2 01/02/19 05:39: Nucleated Red Blood Cells % (auto) 0.0, Prothrombin Time 14.8H, Prothromb Time International Ratio 1.18, Anion Gap 7L, Glomerular Filtration Rate > 60.0, Blood Urea Nitrogen 10, Creatinine 0.77, Sodium Level 138, Potassium Level 4.0, Chloride Level 103, Carbon Dioxide Level 28, Calcium Level 8.4L 01/02/19 11:52: Bedside Glucose (Misc Panel) 378H CBC/BMP Laboratory Tests 01/02/19 05:39 Red Blood Count 4.44, Mean Corpuscular Volume 89.2, Mean Corpuscular Hemoglobin 30.0, Mean Corpuscular Hemoglobin Concent 33.6, Red Cell Distribution Width 13.2, Calcium Level 8.4 L FSBS Laboratory Tests Test 01/02/19 11:52 Range/Units Bedside Glucose (Misc Panel) 378 70-105 MG/DL Discharge Medications Scheduled Ascorbic Acid (Vitamin C) 500 Mg Cap, 500 MG PO DAILY, (Reported) Aspirin (Aspirin EC) 81 Mg Tab, 81 MG PO DAILY, (Reported) Atorvastatin Calcium (Atorvastatin Calcium) 40 Mg Tab, 40 MG PO DAILY, (Reported) Calcium Carbonate/Vitamin D3 (Calcium 600-Vit D3 200 Tablet) 1 Tab Tab, 2 TAB PO DAILY, (Reported) Diltiazem HCl (Diltiazem 24Hr ER) 180 Mg Cap, 180 MG PO DAILY, (Reported) Doxepin HCl (Doxepin HCl) 25 Mg Capsule, 25 MG PO QHS, (Reported) Enoxaparin Sodium (Lovenox) 150 Mg/1 Ml Syringe, 130 MG SC Q12H Ergocalciferol (Vitamin D2) (Vitamin D2) 50,000 Unit Capsule, 50,000 UNIT PO QWEEK, (Reported) THURSDAYS Exenatide Microspheres (Bydureon) 2 Mg Inj, 2 MG SC QWEEK, (Reported) TAKES ON TUESDAY Gabapentin (Gabapentin) 100 Mg Cap, 200 MG PO QHS, (Reported) Insulin Glargine,Hum.rec.anlog (Lantus Solostar) 100 Unit/Ml Inj, 75 UNITS SC BID, (Reported) Insulin Human Lispro (Humalog) 1 Units/0.01 Ml Inj, 1 DOSE SC BID, (Reported) PER SLIDING SCALE [place] Carbonate (Soddy-Daisy Carbonate) 300 Mg Tablet, 300 MG PO QHS, (Reported) Magnesium Oxide (Magnesium Oxide) 250 Mg Tab, 500 MG PO DAILY, (Reported) Melatonin (Melatonin) 10 Mg Cap, 10 MG PO QHS, (Reported) Metformin HCl (Metformin HCl) 1,000 Mg Tab, 1,000 MG PO BID, (Reported) Montelukast Sodium (Montelukast Sodium) 10 Mg Tab, 10 MG PO QHS, (Reported) Multivitamin (Multivitamins) 1 Each Capsule, 1 CAP PO DAILY, (Reported) Sertraline HCl (Sertraline HCl) 100 Mg Tab, 150 MG PO DAILY, (Reported) Scheduled PRN Docusate Sodium (Dok) 100 Mg Tab, 100 MG PO BID PRN for CONSTIPATION, (Reported) Lorazepam (Lorazepam) 2 Mg Tablet, 2 MG PO TID PRN for ANXIETY, (Reported) Oxycodone HCl/Acetaminophen (Percocet 10-325 mg Tablet) 1 Each Tablet, 1 TAB PO Q4H PRN for PAIN, (Reported) Allergies Coded Allergies: clopidogrel (Verified Allergy, Intermediate, rash, 07/17/18) rosuvastatin (Verified Adverse Reaction, Mild, itching, 07/17/18) BELLA NAM DO Jan 02, 2019 21:13
== END 2019-01-02 14:10 | disposition home or self-care (01) | DRG 301 ==
LOC: M ED 10:15 → M ED INP 13:53 → M PCU 20:04 → OBSVTOIN 12-31 13:11
PROVIDERS: ADMIT Student in an Organized Health Care Education/Training Program; ATTEND Internal Medicine
DX: I82.432 Acute embolism and thrombosis of left popliteal vein (principal); I25.10 Atherosclerotic heart disease of native coronary artery without angina pectoris; E11.65 Type 2 diabetes mellitus with hyperglycemia; E78.5 Hyperlipidemia, unspecified; M54.2 Cervicalgia; I83.812 Varicose veins of left lower extremity with pain; K22.4 Dyskinesia of esophagus; Z95.5 Presence of coronary angioplasty implant and graft; Z79.01 Long term (current) use of anticoagulants; Z87.891 Personal history of nicotine dependence; Z79.4 Long term (current) use of insulin; Z79.899 Other long term (current) drug therapy; Z86.711 Personal history of pulmonary embolism; Z86.718 Personal history of other venous thrombosis and embolism

== ENCOUNTER → 2019-01-09 | Outpatient (REF) | payer MEDICARE, MEDICAID ==
[~2019-01-09] MED LIST changes: +DOXE25CA PO; +LITH300T2 PO; +LORA2TAB9 PO; +LOVE0.8I3 SC; +MULTCAP PO; -OMEP40CA2 PO; +OMEP40CA97 PO; +PERC10TA26 PO; +VITA50005 PO
== END ==
LOC: M SFHCCAPE 16:19
PROVIDERS: ATTEND Physician Assistant
DX: R19.7 Diarrhea, unspecified (principal); J22 Unspecified acute lower respiratory infection
CPT/HCPCS: 87507; 87804; 87880; G0463

== ENCOUNTER → 2019-01-16 | Outpatient (REF) | payer MEDICARE, MEDICAID ==
[2019-01-16 17:37] LABS: APPEARANCE, URINE CLEAR (CLEAR); BACTERIA, URINE AUTO NEGATIVE (NEGATIVE); BILIRUBIN, URINE AUTO NEGATIVE (NEGATIVE); BLOOD, URINE BLOOD NEGATIVE (NEGATIVE); COLOR, URINE YELLOW (YELLOW); GLUCOSE, URINE (UA) AUTO NEGATIVE (NEGATIVE); KETONE, URINE AUTO NEGATIVE (NEGATIVE); LEUKOCYTE ESTERASE, URINE AUTO NEGATIVE (NEGATIVE); NITRITE, URINE AUTO NEGATIVE (NEGATIVE); PROTEIN, URINE AUTO NEGATIVE (NEGATIVE); RBC, URINE AUTO 0 /HPF (0-3); SPECIFIC GRAVITY URINE AUTO 1.003 (1.002-1.035); SQUAMOUS EPITHELIAL CELL UR AU 0 /HPF (0-6); UROBILINOGEN, URINE AUTO 0.2 mg/dL (0.0-2.0); WBC, URINE AUTO 0 /HPF (0-3)
== END ==
LOC: M SFHCCAPE 09:48
PROVIDERS: ATTEND Physician Assistant
DX: N39.43 Post-void dribbling (principal); Z23 Encounter for immunization
CPT/HCPCS: 81001; 87086; 90471; 90682; G0463

== ENCOUNTER → 2019-02-06 | Outpatient (REF) | payer MEDICARE, MEDICAID ==
[2019-02-06 17:07] LABS: BASO # 0.1 10^3/uL (0.0-0.2); BASO % 0.5 % (0.0-1.0); EOS # 0.2 10^3/uL (0.0-0.5); EOS % 1.6 % (0.0-3.0); HEMATOCRIT 45.1 % (42.0-52.0); HEMOGLOBIN 14.4 g/dl (13.5-17.5); LYMPH # 1.8 10^3/uL (1.5-5.0); MEAN CORPUSCULAR HEMOGLOBIN 29.3 pg (27.0-33.0); MEAN CORPUSCULAR HGB CONC 31.9 g/dl (32.0-36.5); MEAN CORPUSCULAR VOLUME 91.9 fl (80.0-96.0); MONO # 0.6 10^3/uL (0.0-0.8); MONO % 5.8 % (0.0-5.0); NEUTROPHILS # 8.3 10^3/uL (1.5-8.5); NEUTROPHILS % 75.8 % (36.0-66.0); PLATELET COUNT, AUTOMATED 234 10^3/uL (150-450); RED BLOOD COUNT 4.91 10^6/uL (4.30-6.10); WHITE BLOOD COUNT 10.9 10^3/uL (4.0-10.0)
[2019-02-06 17:21] LABS: ALBUMIN 3.5 GM/DL (3.2-5.2); ALT/SGPT 42 U/L (12-78); BILIRUBIN,TOTAL 0.4 MG/DL (0.2-1.0); BLOOD UREA NITROGEN 9 MG/DL (7-18); CALCIUM LEVEL 8.5 MG/DL (8.5-10.1); CARBON DIOXIDE LEVEL 27 MEQ/L (21-32); CHLORIDE LEVEL 102 MEQ/L (98-107); CHOLESTEROL LEVEL 115 MG/DL (<200); CHOLESTEROL RISK RATIO 3.026 (<5); GLOMERULAR FILTRATION RATE > 60.0 (>56); GLUCOSE, FASTING 147 MG/DL (70-100); HDL CHOLESTEROL 38 MG/DL (>40); LDL CHOLESTEROL 55 MG/DL (<100); NON-HDL-C 77 MG/DL; POTASSIUM SERUM 4.2 MEQ/L (3.5-5.1); SODIUM LEVEL 137 MEQ/L (136-145); THYROID STIMULATING HORMONE 0.644 uIU/ML (0.358-3.740); TOTAL PROTEIN 6.9 GM/DL (6.4-8.2); TRIGLYCERIDES LEVEL 111 MG/DL (<150)
[2019-02-06 17:50] LABS: HEMOGLOBIN A1c 9.3 %
== END ==
LOC: M SFHCCAPE 07:15
PROVIDERS: ATTEND Physician Assistant
DX: E11.8 Type 2 diabetes mellitus with unspecified complications (principal); E78.5 Hyperlipidemia, unspecified

== ENCOUNTER → 2019-02-15 | Outpatient (CLI) | payer MEDICAID, MEDICARE ==
--- NOTE | 2019-02-15 14:23 | PFTRPT ---
Site: [facility], [address] [place], [address] ID: [id number] Name: VIOLA CUBA Visit Date: 02/15/2019 Second ID: [id number] Referring Doctor: SIMON Hilario, Diya Vaughn Reviewing Doctor: Hunter Gonsales MD Repair Manager: Rashaad SOLIZ, CALLIE Age: 58 : 1960 Sex: Male Race: Height: 74.00 Inches Weight: 270.00 Lbs BSA: 2.47 Order IDs: [id number] Requested Test(s): <RESP-PFT.DLCO> Diagnosis: J43.1 test appear to be valid, although the ATS standard for "end of test" was not met. Pt was given four puffs of albuterol for postbronchodilator. Plethysmography not ordered. Review Status: Not Reviewed Pre-Bronch Post-Bronch Pred Actual %Pred Actual %Chng SPIROMETRY FVC (L) 5.58 4.97 89 5.00 FEV1 (L) 4.25 3.71 87 3.91 5 FEV1/FVC (%) 76 75 98 78 5 FEF 25% (L/sec) 8.75 9.03 103 8.60 -4 FEF 50% (L/sec) 5.20 4.96 95 6.41 29 FEF 75% (L/sec) 1.77 0.76 43 1.14 49 FEF 25-75% (L/sec) 3.54 2.77 78 3.65 31 FEF Max (L/sec) 10.40 10.26 98 10.28 FIVC (L) 4.55 4.87 7 FIF 50% (L/sec) 4.82 4.33 89 5.25 21 FIF Max (L/sec) 4.51 5.49 21 Expiratory Time (sec) 8.54 7.72 -9 Back Extrap Vol (L) 0.12 0.12 Time To FEFmax (sec) 0.076 0.068 -10 LUNG VOLUMES SVC (L) 5.40 5.20 96 IC (L) 3.70 4.94 133 ERV (L) 1.70 0.26 15 DIFFUSION DLCOunc (ml/min/mmHg) 30.94 27.81 89 DLCOcor (ml/min/mmHg) 30.94 28.74 92 DL/VA (ml/min/mmHg/L) 3.97 3.77 95 VA (L) 7.79 7.62 97 BHT (sec) 9.96 IVC (L) 5.16 TLC (SB) (L) 7.77 BLOOD GASES Hgb (gm/dL) 13.5
== END ==
LOC: M CARPUL 13:30
PROVIDERS: ATTEND Physician Assistant
DX: J43.1 Panlobular emphysema (principal)

== ENCOUNTER → 2019-03-12 | Outpatient (REF) | payer MEDICARE ==
[2019-03-12 18:04] LABS: BACTERIA, URINE AUTO NEGATIVE (NEGATIVE); RBC, URINE AUTO 0 /HPF (0-3); SQUAMOUS EPITHELIAL CELL UR AU 0 /HPF (0-6); WBC, URINE AUTO 0 /HPF (0-3)
== END ==
LOC: M SFHCCAPE 07:13
PROVIDERS: ATTEND Specialist
DX: E11.8 Type 2 diabetes mellitus with unspecified complications (principal); F17.200 Nicotine dependence, unspecified, uncomplicated; R10.9 Unspecified abdominal pain

== ENCOUNTER → 2019-06-05 | Outpatient (REF) | payer MEDICARE ==
[~2019-06-05] MED LIST changes: -BUPR300T34 PO; +BUPR300T92 PO; -LORA1TAB12 PO; +LORA1TAB4 PO; +LORA2TAB14 PO; -LORA2TAB9 PO; -MONT10TA2 PO; +MONT10TA4 PO
== END ==
LOC: M SFHCCAPE 13:27
PROVIDERS: ATTEND Physician Assistant
DX: J02.9 Acute pharyngitis, unspecified (principal)

== ENCOUNTER → 2019-09-14 | Outpatient (REF) | payer MEDICARE ==
[2019-09-14 17:34] LABS: BASO # 0.1 10^3/uL (0.0-0.2); BASO % 0.6 % (0.0-1.0); EOS # 0.2 10^3/uL (0.0-0.5); EOS % 2.1 % (0.0-3.0); HEMOGLOBIN 14.9 g/dl (13.5-17.5); LYMPH # 1.6 10^3/uL (1.5-5.0); LYMPH % 19.3 % (24.0-44.0); MEAN CORPUSCULAR HEMOGLOBIN 29.1 pg (27.0-33.0); MEAN CORPUSCULAR HGB CONC 32.4 g/dl (32.0-36.5); MEAN CORPUSCULAR VOLUME 89.8 fl (80.0-96.0); MONO # 0.5 10^3/uL (0.0-0.8); MONO % 6.5 % (0.0-5.0); NEUTROPHILS # 5.8 10^3/uL (1.5-8.5); NEUTROPHILS % 71.3 % (36.0-66.0); PLATELET COUNT, AUTOMATED 252 10^3/uL (150-450); RED BLOOD COUNT 5.12 10^6/uL (4.30-6.10); WHITE BLOOD COUNT 8.2 10^3/uL (4.0-10.0)
[2019-09-14 18:01] LABS: ALBUMIN 3.9 GM/DL (3.2-5.2); ALT/SGPT 54 U/L (12-78); BILIRUBIN,TOTAL 0.3 MG/DL (0.2-1.0); BLOOD UREA NITROGEN 16 MG/DL (7-18); C REACTIVE PROTEIN QUANTITATIV 0.97 MG/DL (0.00-0.30); CALCIUM LEVEL 9.4 MG/DL (8.5-10.1); CARBON DIOXIDE LEVEL 25 MEQ/L (21-32); CHLORIDE LEVEL 104 MEQ/L (98-107); CHOLESTEROL LEVEL 165 MG/DL (<200); CHOLESTEROL RISK RATIO 4.125 (<5); CREATININE FOR GFR 1.22 MG/DL (0.70-1.30); GLOMERULAR FILTRATION RATE > 60.0 (>56); GLUCOSE, FASTING 393 MG/DL (70-100); HDL CHOLESTEROL 40 MG/DL (>40); LDL CHOLESTEROL 81 MG/DL (<100); NON-HDL-C 125 MG/DL; POTASSIUM SERUM 4.7 MEQ/L (3.5-5.1); RHEUMATOID FACTOR QUANT < 10.0 IU/ML (<15.0); SODIUM LEVEL 137 MEQ/L (136-145); THYROID STIMULATING HORMONE 0.735 uIU/ML (0.358-3.740); TOTAL PROTEIN 7.6 GM/DL (6.4-8.2); TRIGLYCERIDES LEVEL 221 MG/DL (<150)
[2019-09-14 18:47] LABS: ERYTHROCYTE SEDIMENTATION RATE 36 mm/hr (0-20)
[2019-09-19 00:07] LABS: ANA (HEP2) Negative (.); CYCLIC CITRULLINATED PEPTIDE 6 units (0-19); Lyme Disease IgG/IgM Antibodie <0.91 ISR (0.00-0.90); Lyme Disease IgM Ab Quantitati <0.80 index (0.00-0.79)
== END ==
LOC: M SFHCCLAY 09:46
PROVIDERS: ATTEND Physician Assistant
DX: M79.604 Pain in right leg (principal); E11.8 Type 2 diabetes mellitus with unspecified complications; Z12.5 Encounter for screening for malignant neoplasm of prostate; G89.29 Other chronic pain; M25.561 Pain in right knee
CPT/HCPCS: 80053; 80061; 83036; 84443; 85025; 85652; 86038; 86140; 86200; 86431; 86617; G0103

== ENCOUNTER → 2019-10-30 | Outpatient (REF) | payer MEDICARE ==
[2019-10-30 17:43] LABS: CREATININE, URINE < 13.0 MG/DL
== END ==
LOC: M SFHCCLAY 15:56
PROVIDERS: ATTEND Physician Assistant
DX: E11.8 Type 2 diabetes mellitus with unspecified complications (principal)

== ENCOUNTER → 2019-11-29 | Outpatient (REF) | payer MEDICARE ==
[~2019-11-29] MED LIST changes: +ELIQ5TAB PO; +PANT40TA29 PO; -PANT40TA3 PO; +QUET5TAB PO
== END ==
LOC: M LAB REF 15:55
PROVIDERS: ATTEND Physician Assistant
DX: R07.0 Pain in throat (principal)

== ENCOUNTER → 2020-01-03 | Outpatient (REF) | payer MEDICARE ==
[2020-01-03 17:06] LABS: CREATININE, URINE < 13.0 MG/DL; MALB URINE SIEMENS < 5.0 MG/L
== END ==
LOC: M SFHCCLAY 15:58
PROVIDERS: ATTEND Physician Assistant
DX: E11.8 Type 2 diabetes mellitus with unspecified complications (principal)

== ENCOUNTER → 2020-02-13 | Outpatient (REF) | payer MEDICARE ==
[2020-02-14 13:15] LABS: BASO % 0.4 % (0.0-1.0); EOS # 0.2 10^3/uL (0.0-0.5); EOS % 1.7 % (0.0-3.0); HEMATOCRIT 46.5 % (42.0-52.0); HEMOGLOBIN 15.1 g/dl (13.5-17.5); LYMPH # 2.2 10^3/uL (1.5-5.0); LYMPH % 23.2 % (24.0-44.0); MEAN CORPUSCULAR HEMOGLOBIN 28.8 pg (27.0-33.0); MEAN CORPUSCULAR HGB CONC 32.5 g/dl (32.0-36.5); MEAN CORPUSCULAR VOLUME 88.6 fl (80.0-96.0); MONO # 0.8 10^3/uL (0.0-0.8); MONO % 8.6 % (0.0-5.0); NEUTROPHILS # 6.1 10^3/uL (1.5-8.5); NEUTROPHILS % 65.9 % (36.0-66.0); PLATELET COUNT, AUTOMATED 251 10^3/uL (150-450); RED BLOOD COUNT 5.25 10^6/uL (4.30-6.10); WHITE BLOOD COUNT 9.3 10^3/uL (4.0-10.0)
[2020-02-14 13:21] LABS: APPEARANCE, URINE CLEAR (CLEAR); BACTERIA, URINE AUTO NEGATIVE (NEGATIVE); BILIRUBIN, URINE AUTO NEGATIVE (NEGATIVE); BLOOD, URINE BLOOD NEGATIVE (NEGATIVE); CALCIUM OXALATE CRYSTALS MODERATE; COLOR, URINE YELLOW (YELLOW); GLUCOSE, URINE (UA) AUTO 3+ mg/dL (NEGATIVE); KETONE, URINE AUTO NEGATIVE (NEGATIVE); LEUKOCYTE ESTERASE, URINE AUTO NEGATIVE (NEGATIVE); NITRITE, URINE AUTO NEGATIVE (NEGATIVE); PROTEIN, URINE AUTO NEGATIVE (NEGATIVE); RBC, URINE AUTO 1 /HPF (0-3); SPECIFIC GRAVITY URINE AUTO 1.024 (1.002-1.035); SQUAMOUS EPITHELIAL CELL UR AU 0 /HPF (0-6); UROBILINOGEN, URINE AUTO 0.2 mg/dL (0.0-2.0); WBC, URINE AUTO 1 /HPF (0-3)
[2020-02-14 13:35] LABS: HEMOGLOBIN A1c 9.9 %
[2020-02-14 13:47] LABS: ALBUMIN 3.9 GM/DL (3.2-5.2); ALT/SGPT 43 U/L (12-78); BILIRUBIN,TOTAL 0.3 MG/DL (0.2-1.0); BLOOD UREA NITROGEN 11 MG/DL (7-18); CALCIUM LEVEL 9.2 MG/DL (8.5-10.1); CARBON DIOXIDE LEVEL 27 MEQ/L (21-32); CHLORIDE LEVEL 103 MEQ/L (98-107); CREATININE FOR GFR 1.15 MG/DL (0.70-1.30); GLOMERULAR FILTRATION RATE > 60.0 (>56); GLUCOSE, FASTING 309 MG/DL (70-100); POTASSIUM SERUM 5.9 MEQ/L (3.5-5.1); SODIUM LEVEL 135 MEQ/L (136-145); TOTAL PROTEIN 7.7 GM/DL (6.4-8.2)
== END ==
LOC: M SFHCCLAY 14:58
PROVIDERS: ATTEND Physician Assistant
DX: E11.8 Type 2 diabetes mellitus with unspecified complications (principal); R80.9 Proteinuria, unspecified

== ENCOUNTER → 2020-02-27 | Outpatient (CLI) | payer MEDICAID, MEDICARE ==
--- NOTE | 2020-02-27 17:46 | REP ---
INDICATION: PANLOBULAR EMPHYSEMA. COMPARISON: 12/30/2018 as well as other prior exams. TECHNIQUE: CT chest performed without the use of intravenous contrast. Sagittal and coronal reconstruction images are performed. FINDINGS: Lungs: There is mild interstitial fibrotic change diffusely bilaterally, which is stable. There is biapical bullous changes emphysematous change which also is stable. There is bilateral bronchiectasis which is stable. No new abnormal parenchymal opacity is seen. Mediastinum: No gross adenopathy. Cathryn: No gross adenopathy. Axilla: No gross adenopathy. Pleura: No effusion. Heart: Not enlarged. Thoracic aorta: No aneurysm. Upper abdominal structures: There is fatty infiltration of the liver. There is cyst in the upper pole of the right kidney. Visualized osseous structures: There are degenerative changes of the spine without compression deformity. There is asymmetric gynecomastia left greater than right. IMPRESSION: Stable chronic changes as discussed above. <Electronically signed by Corwin Taylor > 02/27/20 [id number]
== END ==
LOC: M RAD 10:32
PROVIDERS: ATTEND Physician Assistant
DX: J43.1 Panlobular emphysema (principal)

== ENCOUNTER → 2020-03-31 | Outpatient (REF) | payer MEDICARE ==
[~2020-03-31] MED LIST changes: -DOK100TA PO; +DOK100TA2 PO; -MONT10TA4 PO; +MONT5TAB2 PO
[2020-03-31 16:59] LABS: ALBUMIN 4.1 GM/DL (3.2-5.2); ALT/SGPT 41 U/L (12-78); BILIRUBIN,TOTAL 0.5 MG/DL (0.2-1.0); BLOOD UREA NITROGEN 12 MG/DL (7-18); CALCIUM LEVEL 9.3 MG/DL (8.5-10.1); CARBON DIOXIDE LEVEL 28 MEQ/L (21-32); CHLORIDE LEVEL 102 MEQ/L (98-107); CREATININE FOR GFR 1.01 MG/DL (0.70-1.30); GLOMERULAR FILTRATION RATE > 60.0 (>56); GLUCOSE, FASTING 176 MG/DL (70-100); POTASSIUM SERUM 4.9 MEQ/L (3.5-5.1); SODIUM LEVEL 136 MEQ/L (136-145); TOTAL PROTEIN 7.7 GM/DL (6.4-8.2)
== END ==
LOC: M SFHCCLAY 10:52
PROVIDERS: ATTEND Physician Assistant
DX: E87.5 Hyperkalemia (principal)

== ENCOUNTER → 2020-07-17 | Outpatient (REF) | payer MEDICARE, BC ==
[~2020-07-17] MED LIST changes: +BUPR150T12 PO; -BUPR150T3 PO; +GABA-282 PO; -GABA-843 PO; +MONT10TA10 PO; -MONT5TAB2 PO; +QUET50TA3 PO; -QUET5TAB PO; -RABE1TAB PO; +RABE1TAB4 PO
[2020-07-17 17:00] LABS: HEMOGLOBIN A1c 8.6 %
[2020-07-17 17:20] LABS: ALBUMIN 3.9 GM/DL (3.2-5.2); ALT/SGPT 26 U/L (12-78); BILIRUBIN,TOTAL 0.5 MG/DL (0.2-1.0); BLOOD UREA NITROGEN 11 MG/DL (7-18); CALCIUM LEVEL 8.8 MG/DL (8.5-10.1); CARBON DIOXIDE LEVEL 28 MEQ/L (21-32); CHLORIDE LEVEL 101 MEQ/L (98-107); CHOLESTEROL LEVEL 113 MG/DL (<200); CHOLESTEROL RISK RATIO 2.756 (<5); CREATININE FOR GFR 0.91 MG/DL (0.70-1.30); GLOMERULAR FILTRATION RATE > 60.0 (>56); GLUCOSE, FASTING 256 MG/DL (70-100); HDL CHOLESTEROL 41 MG/DL (>40); LDL CHOLESTEROL 55 MG/DL (<100); NON-HDL-C 72 MG/DL; POTASSIUM SERUM 4.8 MEQ/L (3.5-5.1); SODIUM LEVEL 135 MEQ/L (136-145); THYROID STIMULATING HORMONE 0.817 uIU/ML (0.358-3.740); TOTAL PROTEIN 7.3 GM/DL (6.4-8.2); TRIGLYCERIDES LEVEL 86 MG/DL (<150)
[2020-07-17 17:22] LABS: BASO # 0.1 10^3/uL (0.0-0.2); BASO % 0.5 % (0.0-1.0); EOS # 0.2 10^3/uL (0.0-0.5); EOS % 1.5 % (0.0-3.0); HEMATOCRIT 48.4 % (42.0-52.0); HEMOGLOBIN 15.3 g/dl (13.5-17.5); LYMPH # 1.7 10^3/uL (1.5-5.0); MEAN CORPUSCULAR HEMOGLOBIN 29.1 pg (27.0-33.0); MEAN CORPUSCULAR HGB CONC 31.6 g/dl (32.0-36.5); MEAN CORPUSCULAR VOLUME 92.2 fl (80.0-96.0); MONO # 0.6 10^3/uL (0.0-0.8); MONO % 5.4 % (2.0-8.0); NEUTROPHILS % 76.3 % (36.0-66.0); PLATELET COUNT, AUTOMATED 209 10^3/uL (150-450); RED BLOOD COUNT 5.25 10^6/uL (4.30-6.10); WHITE BLOOD COUNT 10.4 10^3/uL (4.0-10.0)
== END ==
LOC: M SFHCCAPE 08:46
PROVIDERS: ATTEND Physician Assistant
DX: E11.8 Type 2 diabetes mellitus with unspecified complications (principal)

== ENCOUNTER → 2020-12-11 | Outpatient (REF) | payer MEDICARE ==
[~2020-12-11] MED LIST changes: +OMEP40CA4 PO; -OMEP40CA97 PO; -QUET50TA3 PO; +QUET50TA4 PO
[2020-12-11 16:16] LABS: BASO # 0.1 10^3/uL (0.0-0.2); BASO % 0.5 % (0.0-1.0); EOS # 0.2 10^3/uL (0.0-0.5); EOS % 1.3 % (0.0-3.0); HEMOGLOBIN 16.5 g/dl (13.5-17.5); LYMPH # 1.4 10^3/uL (1.5-5.0); LYMPH % 12.1 % (24.0-44.0); MEAN CORPUSCULAR HEMOGLOBIN 29.5 pg (27.0-33.0); MEAN CORPUSCULAR HGB CONC 32.4 g/dl (32.0-36.5); MEAN CORPUSCULAR VOLUME 91.2 fl (80.0-96.0); MONO # 0.6 10^3/uL (0.0-0.8); MONO % 5.5 % (2.0-8.0); NEUTROPHILS # 9.3 10^3/uL (1.5-8.5); NEUTROPHILS % 80.3 % (36.0-66.0); PLATELET COUNT, AUTOMATED 230 10^3/uL (150-450); RED BLOOD COUNT 5.59 10^6/uL (4.30-6.10); WHITE BLOOD COUNT 11.6 10^3/uL (4.0-10.0)
[2020-12-11 16:48] LABS: HEMOGLOBIN A1c 9.8 %
[2020-12-11 16:52] LABS: ALBUMIN 3.8 GM/DL (3.2-5.2); ALT/SGPT 29 U/L (12-78); BILIRUBIN,TOTAL 0.5 MG/DL (0.2-1.0); BLOOD UREA NITROGEN 11 MG/DL (7-18); CALCIUM LEVEL 8.9 MG/DL (8.5-10.1); CARBON DIOXIDE LEVEL 23 MEQ/L (21-32); CHLORIDE LEVEL 102 MEQ/L (98-107); CHOLESTEROL LEVEL 117 MG/DL (<200); CHOLESTEROL RISK RATIO 2.853 (<5); CREATININE FOR GFR 0.91 MG/DL (0.70-1.30); FOLATE 18.8 NG/ML; GLOMERULAR FILTRATION RATE > 60.0 (>56); GLUCOSE, FASTING 258 MG/DL (70-100); HDL CHOLESTEROL 41 MG/DL (>40); IRON (FE) 74 UG/DL (65-175); LDL CHOLESTEROL 56 MG/DL (<100); NON-HDL-C 76 MG/DL; PERCENT SATURATION 21.9 % (19.7-50.0); POTASSIUM SERUM 5.1 MEQ/L (3.5-5.1); SODIUM LEVEL 134 MEQ/L (136-145); THYROID STIMULATING HORMONE 0.541 uIU/ML (0.358-3.740); TOTAL IRON BINDING CAPACITY 338 UG/DL (250-450); TOTAL PROTEIN 7.3 GM/DL (6.4-8.2); TRIGLYCERIDES LEVEL 99 MG/DL (<150); VITAMIN B12 LEVEL 549 PG/ML
== END ==
LOC: M SFHCCAPE 08:50
PROVIDERS: ATTEND Physician Assistant
DX: E11.8 Type 2 diabetes mellitus with unspecified complications (principal); K14.6 Glossodynia

== ENCOUNTER → 2021-03-03 | Outpatient (CLI) | payer MEDICARE ==
--- NOTE | 2021-03-03 12:06 | REP ---
INDICATION: NICOTINE DEPEND. COMPARISON: Multiple the latest 02/27/[address] non[address] enhanced helical CT of the chest TECHNIQUE: Axial noncontrast images from the thoracic inlet to the upper abdomen using low-dose lung screening technique (LDCT). As per the protocol only lung window images were sent to the read station for interpretation. FINDINGS: There is biapical pleuroparenchymal scarring status quo. Emphysematous changes are again noted particularly in the lung apical regions with parenchymal bulla and pleural blebs status quo. There is cylindrical bronchiectasis status quo. No new abnormal nodules, masses, or opacities have developed. Grossly, the mediastinum and pulmonary yandy are unchanged. Grossly, the imaged upper abdomen and imaged osseous structures are unchanged. IMPRESSION: Stable appearing lung rads category 1 S low-dose screening CT of the lungs. Follow-up as per the revised Fleischner society criteria. <Electronically signed by Linden Guajardo > 03/03/21 [id number]
== END ==
LOC: M RAD 11:06
PROVIDERS: ATTEND Physician Assistant
DX: Z87.891 Personal history of nicotine dependence (principal)

== ENCOUNTER → 2021-05-21 | Outpatient (REF) | payer MEDICARE ==
[~2021-05-21] MED LIST changes: -MONT10TA10 PO; +MONT10TA97 PO
== END ==
LOC: M SFHCCAPE 11:02
PROVIDERS: ATTEND Physician Assistant
DX: J02.9 Acute pharyngitis, unspecified (principal)

== ENCOUNTER → 2021-06-17 | Outpatient (REF) | payer MEDICARE ==
[2021-06-17 16:18] LABS: BASO # 0.1 10^3/uL (0.0-0.2); BASO % 0.6 % (0.0-1.0); EOS # 0.2 10^3/uL (0.0-0.5); EOS % 1.9 % (0.0-3.0); HEMATOCRIT 47.5 % (42.0-52.0); HEMOGLOBIN 15.6 g/dl (13.5-17.5); LYMPH # 2.2 10^3/uL (1.5-5.0); LYMPH % 23.3 % (24.0-44.0); MEAN CORPUSCULAR HEMOGLOBIN 29.7 pg (27.0-33.0); MEAN CORPUSCULAR HGB CONC 32.8 g/dl (32.0-36.5); MEAN CORPUSCULAR VOLUME 90.5 fl (80.0-96.0); MONO # 0.6 10^3/uL (0.0-0.8); MONO % 6.4 % (2.0-8.0); NEUTROPHILS # 6.5 10^3/uL (1.5-8.5); NEUTROPHILS % 67.5 % (36.0-66.0); PLATELET COUNT, AUTOMATED 286 10^3/uL (150-450); RED BLOOD COUNT 5.25 10^6/uL (4.30-6.10); WHITE BLOOD COUNT 9.6 10^3/uL (4.0-10.0)
[2021-06-17 17:17] LABS: ALBUMIN 3.9 GM/DL (3.2-5.2); ALT/SGPT 25 U/L (12-78); BILIRUBIN,TOTAL 0.5 MG/DL (0.2-1.0); BLOOD UREA NITROGEN 12 MG/DL (7-18); CALCIUM LEVEL 9.3 MG/DL (8.5-10.1); CARBON DIOXIDE LEVEL 28 MEQ/L (21-32); CHLORIDE LEVEL 101 MEQ/L (98-107); CHOLESTEROL LEVEL 139 MG/DL (<200); CHOLESTEROL RISK RATIO 2.957 (<5); CREATININE FOR GFR 1.02 MG/DL (0.70-1.30); GLOMERULAR FILTRATION RATE > 60.0 (>56); GLUCOSE, FASTING 217 MG/DL (70-100); HDL CHOLESTEROL 47 MG/DL (>40); LDL CHOLESTEROL 77 MG/DL (<100); NON-HDL-C 92 MG/DL; POTASSIUM SERUM 4.8 MEQ/L (3.5-5.1); SODIUM LEVEL 134 MEQ/L (136-145); THYROID STIMULATING HORMONE 0.423 uIU/ML (0.358-3.740); TOTAL PROTEIN 8.3 GM/DL (6.4-8.2); TRIGLYCERIDES LEVEL 75 MG/DL (<150)
[2021-06-17 17:58] LABS: CREATININE, URINE 38.3 MG/DL; MALB URINE SIEMENS 15.8 MG/L; MAU/CREAT RATIO 41.2 MCG/MG (0.0-30.0)
[2021-06-17 21:10] LABS: HEMOGLOBIN A1c 8.5 %
== END ==
LOC: M SFHCCAPE 09:41
PROVIDERS: ATTEND Physician Assistant
DX: E11.8 Type 2 diabetes mellitus with unspecified complications (principal); Z12.5 Encounter for screening for malignant neoplasm of prostate
CPT/HCPCS: 36415; 80053; 80061; 82043; 83036; 84443; 85025; G0103

== ENCOUNTER → 2021-11-12 | Outpatient (CLI) | payer MEDICARE | LOC: M CLY 12:33 | PROVIDERS: ATTEND Physician Assistant | DX: R93.7 Abnormal findings on diagnostic imaging of other parts of musculoskeletal system (principal); M25.571 Pain in right ankle and joints of right foot; M25.572 Pain in left ankle and joints of left foot; M79.661 Pain in right lower leg; M79.662 Pain in left lower leg ==

== ENCOUNTER → 2021-11-19 | Outpatient (REF) | payer MEDICARE ==
[2021-11-19 18:13] LABS: BLOOD UREA NITROGEN 13 MG/DL (7-18); GLOMERULAR FILTRATION RATE > 60.0 (>56)
== END ==
LOC: M SFHCCAPE 07:55
PROVIDERS: ATTEND Physician Assistant
DX: E11.8 Type 2 diabetes mellitus with unspecified complications (principal)

== ENCOUNTER 2021-12-14 10:30 | Emergency (ER) | payer MEDICARE ==
[~2021-12-14] VITALS: Ht 182.9 cm; Wt 115.9 kg
[2021-12-14] MEDS ORDERED: MORPHINE 4 MG/ML 1ML VIAL/SYRINGE IV PRN (11:05)
[2021-12-14] MEDS ORDERED: ONDANSETRON 4MG 2ML VIAL IV ONE (11:05)
[2021-12-14 11:17] LABS: BASO # 0.1 10^3/uL (0.0-0.2); BASO % 0.6 % (0.0-1.0); EOS # 0.2 10^3/uL (0.0-0.5); EOS % 2.2 % (0.0-3.0); HEMATOCRIT 48.5 % (42.0-52.0); HEMOGLOBIN 16.4 g/dl (13.5-17.5); LYMPH # 2.1 10^3/uL (1.5-5.0); LYMPH % 25.1 % (24.0-44.0); MEAN CORPUSCULAR HEMOGLOBIN 30.5 pg (27.0-33.0); MEAN CORPUSCULAR HGB CONC 33.8 g/dl (32.0-36.5); MEAN CORPUSCULAR VOLUME 90.3 fl (80.0-96.0); MONO # 0.6 10^3/uL (0.0-0.8); MONO % 6.6 % (2.0-8.0); NEUTROPHILS # 5.5 10^3/uL (1.5-8.5); NEUTROPHILS % 65.3 % (36.0-66.0); PLATELET COUNT, AUTOMATED 227 10^3/uL (150-450); RED BLOOD COUNT 5.37 10^6/uL (4.30-6.10); WHITE BLOOD COUNT 8.4 10^3/uL (4.0-10.0)
[2021-12-14 11:57] LABS: CK-MB VALUE MASS 2.1 NG/ML (<3.6); MB/CK RELATIVE INDEX 1.43 (< OR =4)
[2021-12-14] MEDS: HYDROMORPHONE HCL 0.5 MG/ 0.5 ML SYRINGE (J1170 PER 1) IV PRN ×2 (11:58→12:58)
[2021-12-14 12:04] LABS: ALT/SGPT 29 U/L (12-78); BILIRUBIN,DIRECT 0.1 MG/DL (0.0-0.2); BILIRUBIN,TOTAL 0.4 MG/DL (0.2-1.0); BLOOD UREA NITROGEN 13 MG/DL (7-18); CALCIUM LEVEL 9.4 MG/DL (8.5-10.1); CARBON DIOXIDE LEVEL 25 MEQ/L (21-32); CHLORIDE LEVEL 103 MEQ/L (98-107); CREATININE FOR GFR 1.04 MG/DL (0.70-1.30); GLOMERULAR FILTRATION RATE > 60.0 (>56); GLUCOSE, FASTING 247 MG/DL (70-100); LIPASE 129 U/L (73-393); SODIUM LEVEL 133 MEQ/L (136-145); THYROID STIMULATING HORMONE 0.748 uIU/ML (0.358-3.740); TOTAL PROTEIN 7.8 GM/DL (6.4-8.2)
[2021-12-14] MEDS ORDERED: ISOVUE-370 76% 100ML VIAL As Ordered ONE (12:16)
[2021-12-14] MEDS ORDERED: PERCOCET 5MG/325MG TAB PO ONE (12:55)
[2021-12-14 12:56] LABS: CK-MB VALUE MASS 2.2 NG/ML (<3.6); MB/CK RELATIVE INDEX 1.67 (< OR =4)
[2021-12-14 13:47] LABS: ERYTHROCYTE SEDIMENTATION RATE 15 mm/hr (0-20)
[2021-12-14 14:15] VITALS: BP 137/76
== END 2021-12-14 14:30 | disposition home or self-care (01) ==
LOC: M ED 10:30
DX: R07.89 Other chest pain (principal); J44.9 Chronic obstructive pulmonary disease, unspecified; E11.9 Type 2 diabetes mellitus without complications; I10 Essential (primary) hypertension; F17.200 Nicotine dependence, unspecified, uncomplicated; E78.5 Hyperlipidemia, unspecified; K21.9 Gastro-esophageal reflux disease without esophagitis; Z79.01 Long term (current) use of anticoagulants; Z79.4 Long term (current) use of insulin; Z79.84 Long term (current) use of oral hypoglycemic drugs; Z79.82 Long term (current) use of aspirin; Z79.899 Other long term (current) drug therapy; Z88.8 Allergy status to other drugs, medicaments and biological substances; Z95.828 Presence of other vascular implants and grafts
CPT/HCPCS: 71045; 71275; 80048; 80076; 82550; 82553; 83690; 84443; 84484; 85025; 85652; 93005; 93041; 94760; 96374; 96375; 96376; 99285; J1170; J2270; J2405; Q9967

== ENCOUNTER → 2022-02-03 | Outpatient (CLI) | payer MEDICARE | LOC: M WHC 10:35 | PROVIDERS: ATTEND Physician Assistant | DX: N64.4 Mastodynia (principal); N62 Hypertrophy of breast | CPT/HCPCS: 77066; G0279 ==

== ENCOUNTER → 2022-02-10 | Outpatient (REF) | payer MEDICARE ==
[~2022-02-10] MED LIST changes: -DOXY-350 PO; +DOXY-444 PO
== END ==
LOC: M SFHCCLAY 11:49
PROVIDERS: ATTEND Physician Assistant
DX: R09.81 Nasal congestion (principal)

== ENCOUNTER 2022-02-15 13:57 | Inpatient (IN) | payer MEDICARE ==
[~2022-02-15] VITALS: Ht 188 cm; Wt 120.1 kg
[2022-02-15 16:48] LABS: HEMATOCRIT 45.9 % (42.0-52.0); HEMOGLOBIN 15.5 g/dl (13.5-17.5); MEAN CORPUSCULAR HEMOGLOBIN 30.2 pg (27.0-33.0); MEAN CORPUSCULAR HGB CONC 33.8 g/dl (32.0-36.5); MEAN CORPUSCULAR VOLUME 89.3 fl (80.0-96.0); PLATELET COUNT, AUTOMATED 282 10^3/uL (150-450); RED BLOOD COUNT 5.14 10^6/uL (4.30-6.10); WHITE BLOOD COUNT 13.3 10^3/uL (4.0-10.0)
[2022-02-15 17:05] LABS: INR 1.27; PROTHROMBIN TIME 16.2 SECONDS (12.5-14.5)
[2022-02-15 17:06] LABS: PARTIAL THROMBOPLASTIN TIME 30.3 SECONDS (24.8-34.2)
[2022-02-15 17:10] LABS: ERYTHROCYTE SEDIMENTATION RATE 10 mm/hr (0-20)
[2022-02-15] MEDS ORDERED: MORPHINE 4 MG/ML 1ML VIAL/SYRINGE IV ONE ×2 (17:10→18:45)
[2022-02-15] MEDS ORDERED: PIPERACILLIN/TAZOBACTAM SOD 4.5 GM in D5W MINI-BAG PLUS 50 ML IV ONE (17:10)
[2022-02-15] MEDS ORDERED: VANCOMYCIN HCL 2,000 MG in D5W 500 ML IV ONE (17:10)
[2022-02-15] MEDS ORDERED: NS IV ONE (17:10)
[2022-02-15] MEDS ORDERED: ONDANSETRON 4MG 2ML VIAL IV ONE (17:10)
[2022-02-15 17:44] LABS: ALBUMIN 3.6 GM/DL (3.2-5.2); ALT/SGPT 27 U/L (12-78); BILIRUBIN,TOTAL 0.6 MG/DL (0.2-1.0); BLOOD UREA NITROGEN 15 MG/DL (7-18); CALCIUM LEVEL 9.1 MG/DL (8.5-10.1); CARBON DIOXIDE LEVEL 23 MEQ/L (21-32); CHLORIDE LEVEL 97 MEQ/L (98-107); CREATININE FOR GFR 1.22 MG/DL (0.70-1.30); GLOMERULAR FILTRATION RATE > 60.0 (>56); GLUCOSE, FASTING 471 MG/DL (70-100); POTASSIUM SERUM 4.6 MEQ/L (3.5-5.1); SODIUM LEVEL 130 MEQ/L (136-145); TOTAL PROTEIN 8.2 GM/DL (6.4-8.2)
[2022-02-15] MEDS ORDERED: VANCOMYCIN HCL 1,000 MG, VIAL MATE ADAPTER 1 EACH in NS 250 ML IV ONE ×2 (18:00→19:00)
[2022-02-15] MEDS ORDERED: FLUO20CA22 PO (18:21)
[2022-02-15] MEDS ORDERED: HYDR50TA70 PO (18:21)
[2022-02-15] MEDS ORDERED: WARF-23 PO (18:21)
[2022-02-15] MEDS ORDERED: BUPR-71 PO (18:21)
[2022-02-15] MEDS ORDERED: DOXE100CA PO (18:21)
[2022-02-15] MEDS ORDERED: GABA-1171 PO (18:21)
[2022-02-15] MEDS ORDERED: ONDA4TAB6 SL (18:21)
[2022-02-15] MEDS ORDERED: ACET32TAB PO (18:21)
[2022-02-15 18:22] LABS: BASO % 0.3 % (0.0-1.0); EOS # 0.1 10^3/uL (0.0-0.5); EOS % 0.4 % (0.0-3.0); HEMATOCRIT 44.1 % (42.0-52.0); HEMOGLOBIN 15.2 g/dl (13.5-17.5); LYMPH # 1.8 10^3/uL (1.5-5.0); LYMPH % 13.4 % (24.0-44.0); MEAN CORPUSCULAR HEMOGLOBIN 30.8 pg (27.0-33.0); MEAN CORPUSCULAR HGB CONC 34.5 g/dl (32.0-36.5); MEAN CORPUSCULAR VOLUME 89.5 fl (80.0-96.0); MONO % 7.5 % (2.0-8.0); NEUTROPHILS # 10.2 10^3/uL (1.5-8.5); PLATELET COUNT, AUTOMATED 278 10^3/uL (150-450); RED BLOOD COUNT 4.93 10^6/uL (4.30-6.10); WHITE BLOOD COUNT 13.1 10^3/uL (4.0-10.0)
[2022-02-15] MEDS ORDERED: HOME MED LIST COMPLETE! XX SCH ×2 (18:25→18:50)
[2022-02-15 18:35] LABS: INR 1.26; PROTHROMBIN TIME 16.1 SECONDS (12.5-14.5)
[2022-02-15] MEDS ORDERED: GLUCOSE 4GM CHEW TABLET PO PRN (18:35)
[2022-02-15] MEDS ORDERED: RAMELTEON 8 MG TAB (ROZEREM) PO PRN (18:35)
[2022-02-15] MEDS ORDERED: MORPHINE 2 MG/ML 1ML VIAL IV PRN (18:35)
[2022-02-15] MEDS ORDERED: hydrOXYzine 50 MG TAB PO PRN (18:35)
[2022-02-15] MEDS ORDERED: GLUCAGON INJ 1MG VIAL SC PRN (18:35)
[2022-02-15] MEDS ORDERED: ACETAMINOPHEN 500 MG TAB PO ONE (18:35)
[2022-02-15] MEDS ORDERED: DEXTROSE 50% 50 ML SYRINGE IV PRN (18:35)
[2022-02-15] MEDS ORDERED: GABA-282 PO ×2 (18:49)
[2022-02-15 19:31] LABS: RSV AMPLIFICATION NEGATIVE (NEGATIVE)
[2022-02-15] MEDS ORDERED: HYDROMORPHONE HCL 0.5 MG/ 0.5 ML SYRINGE (J1170 PER 1) IV PRN (19:40)
[2022-02-15] MEDS ORDERED: DOXEPIN 25 MG CAP PO SCH (21:00)
[2022-02-15] MEDS ORDERED: GABAPENTIN 300 MG CAP PO SCH (21:00)
[2022-02-15] MEDS: INSULIN LISPRO (NovoLOG) PER UNIT SC SCH (21:01)
[2022-02-15] MEDS ORDERED: HYDROMORPHONE HCL 0.5 MG/ 0.5 ML SYRINGE (J1170 PER 1) IV ONE (21:25)
[2022-02-15 21:34] LABS: HEMOGLOBIN A1c 12.4 %
[2022-02-15] MEDS: NS 1,000 ML IV SCH (21:51)
[2022-02-15] MEDS ORDERED: ONDANSETRON 4MG 2ML VIAL IV PRN (22:00)
[2022-02-15] MEDS: FLUoxetine 20MG CAP PO SCH (22:21)
[2022-02-15] MEDS: MONTELUKAST 10 MG TAB PO SCH (22:22)
[2022-02-15] MEDS: LITHIUM CARBONATE 300 MG CAP PO SCH (22:23)
[2022-02-15 22:57] VITALS: BP 152/93
[2022-02-16] VITALS (7 sets, daily range): BP systolic 114–138; BP diastolic 76–89
[2022-02-16] MEDS: HYDROMORPHONE HCL 0.5 MG/ 0.5 ML SYRINGE (J1170 PER 1) IV PRN ×6 (00:46→23:04)
[2022-02-16] MEDS: PIPERACILLIN/TAZOBACTAM SOD 4.5 GM in D5W MINI-BAG PLUS 50 ML IV SCH ×4 (00:47→18:44)
[2022-02-16] MEDS: INSULIN LISPRO (NovoLOG) PER UNIT SC SCH ×5 (01:26→21:05)
[2022-02-16] MEDS: DOXEPIN 25 MG CAP PO SCH ×2 (01:27→21:06)
[2022-02-16] MEDS: NS 1,000 ML IV SCH (06:10)
[2022-02-16] MEDS: ACETAMINOPHEN TAB 650MG DOSE (2X325MG) PO PRN (07:45)
[2022-02-16 07:50] LABS: HEMATOCRIT 39.6 % (42.0-52.0); MEAN CORPUSCULAR HEMOGLOBIN 30.3 pg (27.0-33.0); MEAN CORPUSCULAR HGB CONC 33.1 g/dl (32.0-36.5); MEAN CORPUSCULAR VOLUME 91.7 fl (80.0-96.0); PLATELET COUNT, AUTOMATED 217 10^3/uL (150-450); RED BLOOD COUNT 4.32 10^6/uL (4.30-6.10); WHITE BLOOD COUNT 10.3 10^3/uL (4.0-10.0)
[2022-02-16 07:51] LABS: HEMOGLOBIN 13.1 g/dl (13.5-17.5)
[2022-02-16 08:03] LABS: INR 1.42; PROTHROMBIN TIME 17.6 SECONDS (12.5-14.5)
[2022-02-16] MEDS: MULTIVITAMINS/MINERALS THERAP 1 TAB PO SCH (08:12)
[2022-02-16] MEDS: buPROPion **SR TABLET** (ZYBAN) 150MG PO SCH (08:12)
[2022-02-16] MEDS: ATORVASTATIN 20 MG TAB PO SCH (08:12)
[2022-02-16] MEDS: FLUoxetine 20MG CAP PO SCH ×2 (08:12→21:05)
[2022-02-16] MEDS: LITHIUM CARBONATE 300 MG CAP PO SCH ×2 (08:12→21:05)
[2022-02-16] MEDS: ASPIRIN 81MG ENTERIC TABLET PO SCH (08:13)
[2022-02-16 08:17] LABS: BLOOD UREA NITROGEN 8 MG/DL (7-18); CALCIUM LEVEL 7.7 MG/DL (8.5-10.1); CARBON DIOXIDE LEVEL 24 MEQ/L (21-32); CHLORIDE LEVEL 105 MEQ/L (98-107); CREATININE FOR GFR 0.76 MG/DL (0.70-1.30); GLOMERULAR FILTRATION RATE > 60.0 (>56); GLUCOSE, FASTING 172 MG/DL (70-100); POTASSIUM SERUM 4.1 MEQ/L (3.5-5.1); SODIUM LEVEL 137 MEQ/L (136-145)
[2022-02-16] MEDS ORDERED: SERTRALINE 100 MG TAB PO SCH (09:00)
[2022-02-16] MEDS ORDERED: GABAPENTIN 300 MG CAP PO SCH (09:00)
[2022-02-16] MEDS: oxyCODONE 5MG TAB PO PRN (09:01)
[2022-02-16] MEDS ORDERED: fentaNYL 100 MCG/2 ML INJECTION As Ordered ONE (11:43)
[2022-02-16] MEDS ORDERED: propofoL 200 MG/20 ML VIAL As Ordered ONE (11:43)
[2022-02-16] MEDS ORDERED: ONDANSETRON 4MG 2ML VIAL As Ordered ONE (11:44)
[2022-02-16] MEDS ORDERED: dexameTHASONE 4 MG/ML 1ML VIAL (J1100 PER 1MG) As Ordered ONE (11:44)
[2022-02-16] MEDS ORDERED: MIDAZOLAM INJ 2MG/2ML VIAL (J2250 PER 1MG) As Ordered ONE (11:44)
[2022-02-16] MEDS ORDERED: LIDOCAINE 1% SDV 30ML VIAL As Ordered ONE (11:45)
[2022-02-16] MEDS ORDERED: BUPIVACAINE/EPIN 0.5% 30 ML VIAL As Ordered ONE (11:46)
[2022-02-16] MEDS ORDERED: BUPIVACAINE HCL 0.5% 30ML VIAL As Ordered ONE (11:47)
[2022-02-16] MEDS ORDERED: INSULIN LISPRO (NovoLOG) PER UNIT SC PRN (13:10)
[2022-02-16] MEDS ORDERED: oxyCODONE 5MG TAB PO PRN (13:10)
[2022-02-16] MEDS ORDERED: ONDANSETRON 4MG 2ML VIAL IV PRN (13:10)
[2022-02-16] MEDS ORDERED: fentaNYL 100 MCG/2 ML INJECTION IV PRN (13:10)
[2022-02-16] MEDS: LEVEMIR (INSULIN DETEMIR) 1 UNITS/0.01ML SC SCH (21:04)
[2022-02-16] MEDS: MONTELUKAST 10 MG TAB PO SCH (21:06)
[2022-02-16] MEDS: GABAPENTIN 300 MG CAP PO SCH (21:06)
[2022-02-16] MEDS ORDERED: KETOROLAC 30 MG/ML 1ML VIAL IV ONE (21:25)
[2022-02-17] MEDS: PIPERACILLIN/TAZOBACTAM SOD 4.5 GM in D5W MINI-BAG PLUS 50 ML IV SCH ×4 (00:37→17:45)
[2022-02-17 01:51] VITALS: BP 126/69
[2022-02-17 06:08] VITALS: BP 122/70
[2022-02-17 06:14] LABS: BASO % 0.2 % (0.0-1.0); EOS % 0.2 % (0.0-3.0); HEMATOCRIT 39.6 % (42.0-52.0); LYMPH # 1.1 10^3/uL (1.5-5.0); MEAN CORPUSCULAR HEMOGLOBIN 30.4 pg (27.0-33.0); MEAN CORPUSCULAR HGB CONC 32.8 g/dl (32.0-36.5); MEAN CORPUSCULAR VOLUME 92.7 fl (80.0-96.0); MONO # 0.6 10^3/uL (0.0-0.8); MONO % 6.7 % (2.0-8.0); NEUTROPHILS % 80.6 % (36.0-66.0); PLATELET COUNT, AUTOMATED 233 10^3/uL (150-450); RED BLOOD COUNT 4.27 10^6/uL (4.30-6.10); WHITE BLOOD COUNT 8.7 10^3/uL (4.0-10.0)
[2022-02-17 06:34] LABS: INR 1.37; PROTHROMBIN TIME 17.1 SECONDS (12.5-14.5)
[2022-02-17 07:08] LABS: ALBUMIN 2.4 GM/DL (3.2-5.2); ALT/SGPT 30 U/L (12-78); BILIRUBIN,TOTAL 0.5 MG/DL (0.2-1.0); BLOOD UREA NITROGEN 9 MG/DL (7-18); CARBON DIOXIDE LEVEL 25 MEQ/L (21-32); CHLORIDE LEVEL 103 MEQ/L (98-107); CREATININE FOR GFR 0.74 MG/DL (0.70-1.30); GLOMERULAR FILTRATION RATE > 60.0 (>56); GLUCOSE, FASTING 284 MG/DL (70-100); MAGNESIUM LEVEL 2.3 MG/DL (1.8-2.4); POTASSIUM SERUM 4.4 MEQ/L (3.5-5.1); SODIUM LEVEL 136 MEQ/L (136-145); TOTAL PROTEIN 6.1 GM/DL (6.4-8.2)
[2022-02-17 08:00] VITALS: BP 135/90
[2022-02-17] MEDS: buPROPion **SR TABLET** (ZYBAN) 150MG PO SCH (09:00)
[2022-02-17] MEDS: INSULIN LISPRO (NovoLOG) PER UNIT SC SCH ×4 (10:19→21:00)
[2022-02-17] MEDS: LEVEMIR (INSULIN DETEMIR) 1 UNITS/0.01ML SC SCH ×2 (10:43→21:17)
[2022-02-17] MEDS: ASPIRIN 81MG ENTERIC TABLET PO SCH (10:44)
[2022-02-17] MEDS: ACETAMINOPHEN TAB 650MG DOSE (2X325MG) PO PRN (10:47)
[2022-02-17] MEDS: FLUoxetine 20MG CAP PO SCH ×2 (10:48→21:15)
[2022-02-17] MEDS: MULTIVITAMINS/MINERALS THERAP 1 TAB PO SCH (10:49)
[2022-02-17] MEDS: LITHIUM CARBONATE 300 MG CAP PO SCH ×2 (10:49→21:15)
[2022-02-17] MEDS: GABAPENTIN 300 MG CAP PO SCH ×2 (10:51→21:15)
[2022-02-17] MEDS: ATORVASTATIN 20 MG TAB PO SCH (10:52)
[2022-02-17] MEDS: HYDROMORPHONE HCL 0.5 MG/ 0.5 ML SYRINGE (J1170 PER 1) IV PRN ×3 (12:03→20:06)
[2022-02-17 14:00] VITALS: BP 133/77
[2022-02-17] MEDS ORDERED: WARFARIN SOD 5MG TAB PO SCH (17:00)
[2022-02-17] MEDS ORDERED: WARFARIN SOD 7.5MG TAB PO SCH (17:00)
[2022-02-17] MEDS: LORazepam 2 MG TAB PO PRN (21:15)
[2022-02-17] MEDS: DOXEPIN 25 MG CAP PO SCH (21:15)
[2022-02-17] MEDS: MONTELUKAST 10 MG TAB PO SCH (21:15)
[2022-02-17 22:00] VITALS: BP 137/79
[2022-02-18] MEDS: PIPERACILLIN/TAZOBACTAM SOD 4.5 GM in D5W MINI-BAG PLUS 50 ML IV SCH ×4 (00:44→17:43)
[2022-02-18] MEDS: HYDROMORPHONE HCL 0.5 MG/ 0.5 ML SYRINGE (J1170 PER 1) IV PRN ×5 (05:32→21:44)
[2022-02-18 06:00] VITALS: BP 137/80
[2022-02-18 06:20] LABS: BASO % 0.4 % (0.0-1.0); EOS # 0.2 10^3/uL (0.0-0.5); EOS % 2.2 % (0.0-3.0); HEMOGLOBIN 13.2 g/dl (13.5-17.5); LYMPH # 1.9 10^3/uL (1.5-5.0); LYMPH % 24.5 % (24.0-44.0); MEAN CORPUSCULAR HEMOGLOBIN 30.3 pg (27.0-33.0); MONO # 0.5 10^3/uL (0.0-0.8); MONO % 6.9 % (2.0-8.0); NEUTROPHILS # 5.2 10^3/uL (1.5-8.5); NEUTROPHILS % 65.9 % (36.0-66.0); PLATELET COUNT, AUTOMATED 236 10^3/uL (150-450); RED BLOOD COUNT 4.35 10^6/uL (4.30-6.10); WHITE BLOOD COUNT 7.8 10^3/uL (4.0-10.0)
[2022-02-18 06:53] LABS: ALBUMIN 2.4 GM/DL (3.2-5.2); ALT/SGPT 34 U/L (12-78); BILIRUBIN,TOTAL 0.3 MG/DL (0.2-1.0); BLOOD UREA NITROGEN 11 MG/DL (7-18); CARBON DIOXIDE LEVEL 26 MEQ/L (21-32); CHLORIDE LEVEL 104 MEQ/L (98-107); CREATININE FOR GFR 0.84 MG/DL (0.70-1.30); GLOMERULAR FILTRATION RATE > 60.0 (>56); GLUCOSE, FASTING 286 MG/DL (70-100); MAGNESIUM LEVEL 1.8 MG/DL (1.8-2.4); POTASSIUM SERUM 3.9 MEQ/L (3.5-5.1); SODIUM LEVEL 138 MEQ/L (136-145); TOTAL PROTEIN 6.2 GM/DL (6.4-8.2)
[2022-02-18 07:17] LABS: INR 1.21; PROTHROMBIN TIME 15.6 SECONDS (12.5-14.5)
[2022-02-18 07:44] VITALS: BP 134/80
[2022-02-18 07:46] VITALS: BP 134/80
[2022-02-18] MEDS: INSULIN LISPRO (NovoLOG) PER UNIT SC SCH ×4 (07:58→20:30)
[2022-02-18] MEDS: FLUoxetine 20MG CAP PO SCH ×2 (09:21→20:30)
[2022-02-18] MEDS: ATORVASTATIN 20 MG TAB PO SCH (09:22)
[2022-02-18] MEDS: buPROPion **SR TABLET** (ZYBAN) 150MG PO SCH (09:22)
[2022-02-18] MEDS: MULTIVITAMINS/MINERALS THERAP 1 TAB PO SCH (09:22)
[2022-02-18] MEDS: ASPIRIN 81MG ENTERIC TABLET PO SCH (09:22)
[2022-02-18] MEDS: LITHIUM CARBONATE 300 MG CAP PO SCH ×2 (09:22→20:31)
[2022-02-18] MEDS: GABAPENTIN 300 MG CAP PO SCH ×2 (09:23→20:30)
[2022-02-18] MEDS: LEVEMIR (INSULIN DETEMIR) 1 UNITS/0.01ML SC SCH ×2 (09:23→20:29)
[2022-02-18] MEDS: ACETAMINOPHEN TAB 650MG DOSE (2X325MG) PO PRN (13:36)
[2022-02-18 13:43] VITALS: BP 153/87
[2022-02-18] MEDS: WARFARIN SOD 5MG TAB PO SCH (17:44)
[2022-02-18] MEDS: WARFARIN SOD 2.5MG TAB PO SCH (17:45)
[2022-02-18 20:09] VITALS: BP 151/90
[2022-02-18] MEDS: MONTELUKAST 10 MG TAB PO SCH (20:30)
[2022-02-18] MEDS: DOXEPIN 25 MG CAP PO SCH (20:30)
[2022-02-19] MEDS: PIPERACILLIN/TAZOBACTAM SOD 4.5 GM in D5W MINI-BAG PLUS 50 ML IV SCH ×5 (00:38→23:02)
[2022-02-19] MEDS: HYDROMORPHONE HCL 0.5 MG/ 0.5 ML SYRINGE (J1170 PER 1) IV PRN ×7 (02:01→22:57)
[2022-02-19 05:07] VITALS: BP 147/92
[2022-02-19 06:37] LABS: BASO % 0.4 % (0.0-1.0); EOS # 0.2 10^3/uL (0.0-0.5); EOS % 2.4 % (0.0-3.0); HEMATOCRIT 39.5 % (42.0-52.0); HEMOGLOBIN 13.4 g/dl (13.5-17.5); LYMPH # 1.9 10^3/uL (1.5-5.0); MEAN CORPUSCULAR HEMOGLOBIN 30.7 pg (27.0-33.0); MEAN CORPUSCULAR HGB CONC 33.9 g/dl (32.0-36.5); MEAN CORPUSCULAR VOLUME 90.6 fl (80.0-96.0); MONO # 0.5 10^3/uL (0.0-0.8); MONO % 7.7 % (2.0-8.0); NEUTROPHILS # 4.2 10^3/uL (1.5-8.5); NEUTROPHILS % 61.4 % (36.0-66.0); PLATELET COUNT, AUTOMATED 257 10^3/uL (150-450); RED BLOOD COUNT 4.36 10^6/uL (4.30-6.10); WHITE BLOOD COUNT 6.8 10^3/uL (4.0-10.0)
[2022-02-19 06:53] LABS: INR 1.31; PROTHROMBIN TIME 16.6 SECONDS (12.5-14.5)
[2022-02-19 07:04] LABS: ALBUMIN 2.6 GM/DL (3.2-5.2); ALT/SGPT 32 U/L (12-78); BILIRUBIN,TOTAL 0.3 MG/DL (0.2-1.0); BLOOD UREA NITROGEN 13 MG/DL (7-18); CALCIUM LEVEL 8.5 MG/DL (8.5-10.1); CARBON DIOXIDE LEVEL 27 MEQ/L (21-32); CHLORIDE LEVEL 103 MEQ/L (98-107); CREATININE FOR GFR 0.83 MG/DL (0.70-1.30); GLOMERULAR FILTRATION RATE > 60.0 (>56); GLUCOSE, FASTING 218 MG/DL (70-100); MAGNESIUM LEVEL 1.8 MG/DL (1.8-2.4); POTASSIUM SERUM 3.7 MEQ/L (3.5-5.1); SODIUM LEVEL 137 MEQ/L (136-145); TOTAL PROTEIN 6.6 GM/DL (6.4-8.2)
[2022-02-19] MEDS: LORazepam 2 MG TAB PO PRN (07:59)
[2022-02-19] MEDS: ACETAMINOPHEN TAB 650MG DOSE (2X325MG) PO PRN (08:00)
[2022-02-19] MEDS: FLUoxetine 20MG CAP PO SCH ×2 (08:49→20:07)
[2022-02-19] MEDS: ATORVASTATIN 20 MG TAB PO SCH (08:49)
[2022-02-19] MEDS: ASPIRIN 81MG ENTERIC TABLET PO SCH (08:49)
[2022-02-19] MEDS: buPROPion **SR TABLET** (ZYBAN) 150MG PO SCH (08:49)
[2022-02-19] MEDS: MULTIVITAMINS/MINERALS THERAP 1 TAB PO SCH (08:50)
[2022-02-19] MEDS: LITHIUM CARBONATE 300 MG CAP PO SCH ×2 (08:50→20:07)
[2022-02-19] MEDS: GABAPENTIN 300 MG CAP PO SCH ×2 (08:50→20:08)
[2022-02-19] MEDS: oxyCODONE 5MG TAB PO PRN (08:51)
[2022-02-19] MEDS: LEVEMIR (INSULIN DETEMIR) 1 UNITS/0.01ML SC SCH ×2 (08:52→20:08)
[2022-02-19] MEDS: INSULIN LISPRO (NovoLOG) PER UNIT SC SCH ×4 (09:23→20:14)
[2022-02-19 15:03] VITALS: BP 150/95
[2022-02-19] MEDS ORDERED: WARF-23 PO (15:18)
[2022-02-19] MEDS ORDERED: AMOX875T2 PO (15:21)
[2022-02-19] MEDS: WARFARIN SOD 2.5MG TAB PO SCH (17:21)
[2022-02-19] MEDS: WARFARIN SOD 5MG TAB PO SCH (17:21)
[2022-02-19 19:44] VITALS: BP 151/94
[2022-02-19] MEDS: DOXEPIN 25 MG CAP PO SCH (20:07)
[2022-02-19] MEDS: MONTELUKAST 10 MG TAB PO SCH (20:07)
[2022-02-20] MEDS: HYDROMORPHONE HCL 0.5 MG/ 0.5 ML SYRINGE (J1170 PER 1) IV PRN ×5 (05:41→18:50)
[2022-02-20] MEDS: PIPERACILLIN/TAZOBACTAM SOD 4.5 GM in D5W MINI-BAG PLUS 50 ML IV SCH ×3 (05:41→17:56)
[2022-02-20 06:22] VITALS: BP 151/94
[2022-02-20 07:49] LABS: BASO % 0.6 % (0.0-1.0); EOS # 0.2 10^3/uL (0.0-0.5); EOS % 2.2 % (0.0-3.0); HEMATOCRIT 42.4 % (42.0-52.0); HEMOGLOBIN 14.1 g/dl (13.5-17.5); LYMPH # 1.4 10^3/uL (1.5-5.0); LYMPH % 20.2 % (24.0-44.0); MEAN CORPUSCULAR HEMOGLOBIN 30.4 pg (27.0-33.0); MEAN CORPUSCULAR HGB CONC 33.3 g/dl (32.0-36.5); MEAN CORPUSCULAR VOLUME 91.4 fl (80.0-96.0); MONO # 0.6 10^3/uL (0.0-0.8); MONO % 8.7 % (2.0-8.0); NEUTROPHILS # 4.5 10^3/uL (1.5-8.5); PLATELET COUNT, AUTOMATED 283 10^3/uL (150-450); RED BLOOD COUNT 4.64 10^6/uL (4.30-6.10); WHITE BLOOD COUNT 6.7 10^3/uL (4.0-10.0)
[2022-02-20 08:01] LABS: INR 1.61; PROTHROMBIN TIME 19.4 SECONDS (12.5-14.5)
[2022-02-20] MEDS: buPROPion **SR TABLET** (ZYBAN) 150MG PO SCH (08:07)
[2022-02-20] MEDS: LORazepam 2 MG TAB PO PRN (08:07)
[2022-02-20] MEDS: FLUoxetine 20MG CAP PO SCH ×2 (08:07→22:00)
[2022-02-20] MEDS: GABAPENTIN 300 MG CAP PO SCH ×2 (08:07→22:00)
[2022-02-20] MEDS: MULTIVITAMINS/MINERALS THERAP 1 TAB PO SCH (08:08)
[2022-02-20] MEDS: ASPIRIN 81MG ENTERIC TABLET PO SCH (08:08)
[2022-02-20] MEDS: oxyCODONE 5MG TAB PO PRN ×2 (08:09→17:54)
[2022-02-20] MEDS: ATORVASTATIN 20 MG TAB PO SCH (08:10)
[2022-02-20] MEDS: LITHIUM CARBONATE 300 MG CAP PO SCH ×2 (08:10→22:01)
[2022-02-20] MEDS: INSULIN LISPRO (NovoLOG) PER UNIT SC SCH ×4 (08:10→21:00)
[2022-02-20] MEDS: LEVEMIR (INSULIN DETEMIR) 1 UNITS/0.01ML SC SCH ×2 (08:11→22:04)
[2022-02-20 08:22] LABS: ALBUMIN 2.8 GM/DL (3.2-5.2); ALT/SGPT 34 U/L (12-78); BILIRUBIN,TOTAL 0.3 MG/DL (0.2-1.0); BLOOD UREA NITROGEN 10 MG/DL (7-18); CALCIUM LEVEL 8.6 MG/DL (8.5-10.1); CARBON DIOXIDE LEVEL 29 MEQ/L (21-32); CHLORIDE LEVEL 101 MEQ/L (98-107); CREATININE FOR GFR 0.91 MG/DL (0.70-1.30); GLOMERULAR FILTRATION RATE > 60.0 (>56); GLUCOSE, FASTING 245 MG/DL (70-100); POTASSIUM SERUM 3.9 MEQ/L (3.5-5.1); SODIUM LEVEL 135 MEQ/L (136-145)
[2022-02-20] MEDS ORDERED: WARFARIN SOD 5MG TAB PO SCH (17:00)
[2022-02-20] MEDS: WARFARIN SOD 5MG TAB PO SCH (17:53)
[2022-02-20] MEDS: DOXEPIN 25 MG CAP PO SCH (22:00)
[2022-02-20] MEDS: MONTELUKAST 10 MG TAB PO SCH (22:01)
[2022-02-21] MEDS: PIPERACILLIN/TAZOBACTAM SOD 4.5 GM in D5W MINI-BAG PLUS 50 ML IV SCH ×3 (00:35→11:31)
[2022-02-21] MEDS: HYDROMORPHONE HCL 0.5 MG/ 0.5 ML SYRINGE (J1170 PER 1) IV PRN ×9 (00:35→23:21)
[2022-02-21] MEDS: oxyCODONE 5MG TAB PO PRN ×2 (01:47→10:30)
[2022-02-21] MEDS: LORazepam 2 MG TAB PO PRN (01:47)
[2022-02-21 06:22] VITALS: BP 149/94
[2022-02-21] MEDS: ASPIRIN 81MG ENTERIC TABLET PO SCH (08:23)
[2022-02-21] MEDS: MULTIVITAMINS/MINERALS THERAP 1 TAB PO SCH (08:23)
[2022-02-21] MEDS: buPROPion **SR TABLET** (ZYBAN) 150MG PO SCH (08:23)
[2022-02-21] MEDS: FLUoxetine 20MG CAP PO SCH ×2 (08:23→20:36)
[2022-02-21] MEDS: GABAPENTIN 300 MG CAP PO SCH ×2 (08:23→20:35)
[2022-02-21] MEDS: LEVEMIR (INSULIN DETEMIR) 1 UNITS/0.01ML SC SCH ×2 (08:23→20:39)
[2022-02-21] MEDS: LITHIUM CARBONATE 300 MG CAP PO SCH ×2 (08:24→20:36)
[2022-02-21] MEDS: ATORVASTATIN 20 MG TAB PO SCH (08:24)
[2022-02-21 08:29] LABS: BASO % 0.6 % (0.0-1.0); EOS # 0.2 10^3/uL (0.0-0.5); HEMATOCRIT 42.3 % (42.0-52.0); HEMOGLOBIN 13.9 g/dl (13.5-17.5); LYMPH # 1.7 10^3/uL (1.5-5.0); LYMPH % 24.6 % (24.0-44.0); MEAN CORPUSCULAR HEMOGLOBIN 30.1 pg (27.0-33.0); MEAN CORPUSCULAR HGB CONC 32.9 g/dl (32.0-36.5); MEAN CORPUSCULAR VOLUME 91.6 fl (80.0-96.0); MONO # 0.6 10^3/uL (0.0-0.8); MONO % 9.2 % (2.0-8.0); NEUTROPHILS # 4.3 10^3/uL (1.5-8.5); NEUTROPHILS % 62.2 % (36.0-66.0); PLATELET COUNT, AUTOMATED 284 10^3/uL (150-450); RED BLOOD COUNT 4.62 10^6/uL (4.30-6.10)
[2022-02-21] MEDS: INSULIN LISPRO (NovoLOG) PER UNIT SC SCH ×4 (08:37→21:00)
[2022-02-21 09:26] LABS: ALBUMIN 2.8 GM/DL (3.2-5.2); ALT/SGPT 32 U/L (12-78); BILIRUBIN,TOTAL 0.3 MG/DL (0.2-1.0); BLOOD UREA NITROGEN 11 MG/DL (7-18); CALCIUM LEVEL 8.2 MG/DL (8.5-10.1); CARBON DIOXIDE LEVEL 27 MEQ/L (21-32); CHLORIDE LEVEL 104 MEQ/L (98-107); CREATININE FOR GFR 0.93 MG/DL (0.70-1.30); GLOMERULAR FILTRATION RATE > 60.0 (>56); GLUCOSE, FASTING 197 MG/DL (70-100); MAGNESIUM LEVEL 2.1 MG/DL (1.8-2.4); POTASSIUM SERUM 3.6 MEQ/L (3.5-5.1); SODIUM LEVEL 135 MEQ/L (136-145); TOTAL PROTEIN 6.6 GM/DL (6.4-8.2)
[2022-02-21] MEDS: ACETAMINOPHEN TAB 650MG DOSE (2X325MG) PO PRN (09:53)
[2022-02-21] MEDS ORDERED: WARFARIN SOD 5MG TAB PO SCH (17:00)
[2022-02-21] MEDS: WARFARIN SOD 5MG TAB PO SCH (17:26)
[2022-02-21] MEDS: MONTELUKAST 10 MG TAB PO SCH (20:35)
[2022-02-21] MEDS: AUGMENTIN 875 MG TAB PO SCH (20:35)
[2022-02-21] MEDS: DOXEPIN 25 MG CAP PO SCH (20:36)
[2022-02-22] MEDS: LORazepam 2 MG TAB PO PRN (00:01)
[2022-02-22] MEDS: oxyCODONE 5MG TAB PO PRN ×2 (00:01→13:50)
[2022-02-22 02:29] LABS: APPEARANCE, URINE MANUAL CLEAR (CLEAR); COLOR, URINE MANUAL LT YELLOW (YELLOW)
[2022-02-22 02:30] LABS: BILIRUBIN, URINE MANUAL NEGATIVE (NEGATIVE); BLOOD URINE MANUAL NEGATIVE (NEGATIVE); GLUCOSE, URINE (UA) MANUAL NEGATIVE (NEGATIVE); KETONE, URINE MANUAL NEGATIVE (NEGATIVE); NITRITE, URINE MANUAL NEGATIVE (NEGATIVE); PROTEIN, URINE MANUAL NEGATIVE (NEGATIVE); SPECIFIC GRAVITY,URINE MANUAL 1.005 (1.002-1.035); UROBILINOGEN, URINE MANUAL NORMAL (NORMAL)
[2022-02-22 02:31] LABS: LEUKOCYTE ESTERASE, URINE MAN NEGATIVE (NEGATIVE)
[2022-02-22 02:45] LABS: OSMOLALITY URINE 113 MOSM/KG (50-1400)
[2022-02-22] MEDS: HYDROMORPHONE HCL 0.5 MG/ 0.5 ML SYRINGE (J1170 PER 1) IV PRN (06:17)
[2022-02-22 06:18] VITALS: BP 131/56
[2022-02-22 07:07] LABS: INR 2.27; PROTHROMBIN TIME 25.4 SECONDS (12.5-14.5)
[2022-02-22 08:19] VITALS: BP 131/56
[2022-02-22] MEDS: LEVEMIR (INSULIN DETEMIR) 1 UNITS/0.01ML SC SCH (08:19)
[2022-02-22] MEDS: GABAPENTIN 300 MG CAP PO SCH (08:19)
[2022-02-22] MEDS: INSULIN LISPRO (NovoLOG) PER UNIT SC SCH ×2 (08:19→13:02)
[2022-02-22] MEDS: LITHIUM CARBONATE 300 MG CAP PO SCH (08:19)
[2022-02-22] MEDS: buPROPion **SR TABLET** (ZYBAN) 150MG PO SCH (08:19)
[2022-02-22] MEDS: ASPIRIN 81MG ENTERIC TABLET PO SCH (08:20)
[2022-02-22] MEDS: MULTIVITAMINS/MINERALS THERAP 1 TAB PO SCH (08:20)
[2022-02-22] MEDS: ATORVASTATIN 20 MG TAB PO SCH (08:20)
[2022-02-22] MEDS: AUGMENTIN 875 MG TAB PO SCH (08:20)
[2022-02-22] MEDS: FLUoxetine 20MG CAP PO SCH (08:20)
[2022-02-22] MEDS: ACETAMINOPHEN TAB 650MG DOSE (2X325MG) PO PRN (08:42)
[2022-02-22] MEDS ORDERED: AMOX875T2 PO (11:28)
[2022-02-22] MEDS ORDERED: WARF-23 PO (11:34)
== END 2022-02-22 14:54 | disposition home health service (06) | DRG 617 ==
LOC: M ED 13:57 → M MS5PR 18:32 → M ED 22:50 → M MS5PR 23:43
PROVIDERS: ADMIT Internal Medicine; ATTEND Family Medicine
PROC: 0Y6N0Z8 Detachment at Left Foot, Complete 5th Ray, Open Approach (ICD-10-PCS; 2022-02-16)
PROC: 0Y6N0Z7 Detachment at Left Foot, Complete 4th Ray, Open Approach (ICD-10-PCS; principal; 2022-02-16 17:30)
DX: E11.621 Type 2 diabetes mellitus with foot ulcer (principal); L97.528 Non-pressure chronic ulcer of other part of left foot with other specified severity; L03.116 Cellulitis of left lower limb; L02.612 Cutaneous abscess of left foot; E87.20 Acidosis, unspecified; E11.40 Type 2 diabetes mellitus with diabetic neuropathy, unspecified; E78.5 Hyperlipidemia, unspecified; M54.9 Dorsalgia, unspecified; I25.10 Atherosclerotic heart disease of native coronary artery without angina pectoris; L97.529 Non-pressure chronic ulcer of other part of left foot with unspecified severity; E66.9 Obesity, unspecified; J44.9 Chronic obstructive pulmonary disease, unspecified; L97.519 Non-pressure chronic ulcer of other part of right foot with unspecified severity; I10 Essential (primary) hypertension; F32.A Depression, unspecified; F41.9 Anxiety disorder, unspecified; G89.29 Other chronic pain; G47.33 Obstructive sleep apnea (adult) (pediatric); Z68.34 Body mass index [BMI] 34.0-34.9, adult; Z95.5 Presence of coronary angioplasty implant and graft; Z86.711 Personal history of pulmonary embolism; Z86.718 Personal history of other venous thrombosis and embolism; Z79.01 Long term (current) use of anticoagulants; Z79.82 Long term (current) use of aspirin; Z79.4 Long term (current) use of insulin; Z79.899 Other long term (current) drug therapy; Z88.8 Allergy status to other drugs, medicaments and biological substances

== ENCOUNTER → 2022-03-02 | Outpatient (REF) | payer MEDICARE ==
[~2022-03-02] MED LIST changes: +ACET32TAB PO; +AMOX875T2 PO; +BUPR-71 PO; +DOXE100CA PO; +FLUO20CA22 PO; +HYDR50TA70 PO; +ONDA4TAB6 SL; +WARF-23 PO
[2022-03-02 17:13] LABS: INR 1.89
== END ==
LOC: M SFHCCAPE 12:00
PROVIDERS: ATTEND Physician Assistant
DX: Z79.01 Long term (current) use of anticoagulants (principal)

== ENCOUNTER → 2022-03-15 | Outpatient (CLI) | payer MEDICARE | LOC: M RAD 10:09 | PROVIDERS: ATTEND Physician Assistant | DX: Z87.891 Personal history of nicotine dependence (principal) ==

== ENCOUNTER → 2022-04-06 | Outpatient (REF) | payer MEDICARE ==
[2022-04-06 17:30] LABS: INR 1.77; PROTHROMBIN TIME 20.9 SECONDS (12.5-14.5)
== END ==
LOC: M SFHCCAPE 08:49
PROVIDERS: ATTEND Physician Assistant
DX: Z79.01 Long term (current) use of anticoagulants (principal)

== ENCOUNTER → 2022-08-11 | Outpatient (REF) | payer OTHER, MEDICAID ==
[~2022-08-11] MED LIST changes: +DILT180C38 PO; -DILT1CAP3 PO; +LORA1TAB23 PO; -LORA1TAB4 PO
[2022-08-11 18:40] LABS: BASO % 0.5 % (0.0-1.0); EOS # 0.2 10^3/uL (0.0-0.5); HEMATOCRIT 49.2 % (42.0-52.0); HEMOGLOBIN 16.8 g/dl (13.5-17.5); LYMPH # 2.2 10^3/uL (1.5-5.0); LYMPH % 29.4 % (24.0-44.0); MEAN CORPUSCULAR HEMOGLOBIN 31.3 pg (27.0-33.0); MEAN CORPUSCULAR HGB CONC 34.1 g/dl (32.0-36.5); MEAN CORPUSCULAR VOLUME 91.8 fl (80.0-96.0); MONO # 0.6 10^3/uL (0.0-0.8); MONO % 7.9 % (2.0-8.0); NEUTROPHILS # 4.4 10^3/uL (1.5-8.5); NEUTROPHILS % 59.9 % (36.0-66.0); PLATELET COUNT, AUTOMATED 278 10^3/uL (150-450); RED BLOOD COUNT 5.36 10^6/uL (4.30-6.10); WHITE BLOOD COUNT 7.4 10^3/uL (4.0-10.0)
[2022-08-11 18:43] LABS: CREATININE, URINE 38.3 MG/DL; MAU/CREAT RATIO 65.2 MCG/MG (0.0-30.0)
[2022-08-11 18:45] LABS: ALBUMIN 4.2 G/DL (3.2-5.2); ALKALINE PHOSPHATASE 121 U/L (46-116); ALT/SGPT 28 U/L (7.0-40); AST/SGOT 18 U/L (<34); BILIRUBIN,TOTAL 0.5 MG/DL (0.3-1.2); BLOOD UREA NITROGEN 14 MG/DL (9-23); CALCIUM LEVEL 10.1 MG/DL (8.5-10.1); CARBON DIOXIDE LEVEL 23 MMOL/L (20-31); CHLORIDE LEVEL 97 MMOL/L (98-107); CHOLESTEROL LEVEL 137 MG/DL (<200); CHOLESTEROL RISK RATIO 2.59 (<5); CREATININE FOR GFR 0.75 MG/DL (0.70-1.30); GLOMERULAR FILTRATION RATE > 60.0 (>56); GLUCOSE, FASTING 398 MG/DL (60-100); HDL CHOLESTEROL 52.8 MG/DL (>40); LDL CHOLESTEROL 17.2 MG/DL (<100); NON-HDL-C 84.2 MG/DL; POTASSIUM SERUM 5.2 MMOL/L (3.5-5.1); SODIUM LEVEL 130 MMOL/L (136-145); THYROID STIMULATING HORMONE 1.203 uIU/ML (0.55-4.78); TOTAL PROTEIN 7.5 G/DL (5.7-8.2); TRIGLYCERIDES LEVEL 335 MG/DL (<150)
[2022-08-11 18:46] LABS: FREE T4 1.29 NG/DL (0.89-1.76); VITAMIN B12 LEVEL 420 PG/ML (211-911)
[2022-08-11 18:47] LABS: TOTAL 25(OH) VITAMIN D 64.9 NG/ML (20.0-100.0)
[2022-08-11 18:51] LABS: FOLATE > 24.0 NG/ML (>5.4)
[2022-08-11 20:05] LABS: HEMOGLOBIN A1c > 14.0 % (4.0-6.0)
[2022-08-16 15:08] LABS: HOMOCYST(E)INE SERUM 8.3 umol/L (0.0-14.5); Methylmalonic Acid 159 nmol/L (0-378)
== END ==
LOC: M SFHCCAPE 08:40
PROVIDERS: ATTEND Physician Assistant
DX: E11.8 Type 2 diabetes mellitus with unspecified complications (principal); Z12.5 Encounter for screening for malignant neoplasm of prostate; Z79.899 Other long term (current) drug therapy

== ENCOUNTER → 2023-04-25 | Outpatient (REF) | payer OTHER, MEDICAID ==
[2023-04-25 17:11] LABS: BASO % 0.1 % (0.0-1.0); EOS % 0.2 % (0.0-3.0); HEMOGLOBIN 15.4 g/dl (13.5-17.5); LYMPH # 1.1 10^3/uL (1.5-5.0); LYMPH % 11.3 % (24.0-44.0); MEAN CORPUSCULAR HEMOGLOBIN 30.9 pg (27.0-33.0); MEAN CORPUSCULAR HGB CONC 34.2 g/dl (32.0-36.5); MEAN CORPUSCULAR VOLUME 90.2 fl (80.0-96.0); MONO # 0.7 10^3/uL (0.0-0.8); MONO % 7.3 % (2.0-8.0); NEUTROPHILS # 7.8 10^3/uL (1.5-8.5); NEUTROPHILS % 80.8 % (36.0-66.0); PLATELET COUNT, AUTOMATED 212 10^3/uL (150-450); RED BLOOD COUNT 4.99 10^6/uL (4.30-6.10); WHITE BLOOD COUNT 9.6 10^3/uL (4.0-10.0)
[2023-04-25 17:33] LABS: ALKALINE PHOSPHATASE 81 U/L (46-116); ALT/SGPT 21 U/L (7.0-40); AST/SGOT 19 U/L (<34); BILIRUBIN,TOTAL 0.5 MG/DL (0.3-1.2); BLOOD UREA NITROGEN 8 MG/DL (9-23); CALCIUM LEVEL 8.4 MG/DL (8.3-10.6); CARBON DIOXIDE LEVEL 26 MMOL/L (20-31); CHLORIDE LEVEL 103 MMOL/L (98-107); CREATININE FOR GFR 0.66 MG/DL (0.70-1.30); GLOMERULAR FILTRATION RATE > 60.0 (>49); GLUCOSE, FASTING 222 MG/DL (74-106); MAGNESIUM LEVEL 1.8 MG/DL (1.8-2.4); POTASSIUM SERUM 4.6 MMOL/L (3.5-5.1); SODIUM LEVEL 136 MMOL/L (136-145); TOTAL PROTEIN 6.6 G/DL (5.7-8.2)
[2023-04-25 17:34] LABS: VITAMIN B12 LEVEL 446 PG/ML (211-911)
[2023-04-25 17:35] LABS: FREE T4 1.36 NG/DL (0.89-1.76); THYROID STIMULATING HORMONE 0.264 uIU/ML (0.55-4.78)
[2023-04-25 17:36] LABS: FOLATE 19.2 NG/ML (>5.4)
[2023-04-25 17:42] LABS: HEMOGLOBIN A1c 7.2 % (4.0-6.0)
== END ==
LOC: M SFHCCAPE 09:36
PROVIDERS: ATTEND Physician Assistant Medical
DX: R42 Dizziness and giddiness (principal); E11.8 Type 2 diabetes mellitus with unspecified complications; K21.9 Gastro-esophageal reflux disease without esophagitis

== ENCOUNTER → 2023-06-22 | Outpatient (CLI) | payer OTHER, MEDICAID | LOC: M LAB 11:57 | PROVIDERS: ATTEND Nurse Practitioner Psychiatric/Mental Health | DX: Z79.899 Other long term (current) drug therapy (principal) ==

== ENCOUNTER → 2023-06-23 | Outpatient (REF) | payer OTHER, MEDICAID ==
[2023-06-23 18:47] LABS: BASO % 0.5 % (0.0-1.0); EOS # 0.1 10^3/uL (0.0-0.5); EOS % 1.6 % (0.0-3.0); HEMATOCRIT 45.3 % (42.0-52.0); HEMOGLOBIN 15.4 g/dl (13.5-17.5); LYMPH # 1.8 10^3/uL (1.5-5.0); LYMPH % 24.1 % (24.0-44.0); MEAN CORPUSCULAR HEMOGLOBIN 31.1 pg (27.0-33.0); MEAN CORPUSCULAR VOLUME 91.5 fl (80.0-96.0); MONO # 0.6 10^3/uL (0.0-0.8); MONO % 7.9 % (2.0-8.0); NEUTROPHILS # 4.9 10^3/uL (1.5-8.5); NEUTROPHILS % 65.8 % (36.0-66.0); PLATELET COUNT, AUTOMATED 210 10^3/uL (150-450); RED BLOOD COUNT 4.95 10^6/uL (4.30-6.10); WHITE BLOOD COUNT 7.4 10^3/uL (4.0-10.0)
[2023-06-23 18:52] LABS: LIPASE 36 U/L (12-53)
[2023-06-23 18:54] LABS: ALBUMIN 3.8 G/DL (3.2-5.2); ALKALINE PHOSPHATASE 105 U/L (46-116); ALT/SGPT 13 U/L (7.0-40); AST/SGOT 23 U/L (<34); BILIRUBIN,TOTAL 0.4 MG/DL (0.3-1.2); BLOOD UREA NITROGEN 12 MG/DL (9-23); CALCIUM LEVEL 7.9 MG/DL (8.3-10.6); CARBON DIOXIDE LEVEL 27 MMOL/L (20-31); CHLORIDE LEVEL 102 MMOL/L (98-107); CREATININE FOR GFR 0.65 MG/DL (0.70-1.30); GLOMERULAR FILTRATION RATE > 60.0 (>49); GLUCOSE, FASTING 130 MG/DL (74-106); POTASSIUM SERUM 4.5 MMOL/L (3.5-5.1); SODIUM LEVEL 136 MMOL/L (136-145); TOTAL PROTEIN 6.9 G/DL (5.7-8.2)
[2023-06-23 18:56] LABS: FREE T4 1.01 NG/DL (0.89-1.76)
[2023-06-23 19:40] LABS: HEMOGLOBIN A1c 7.8 % (4.0-6.0)
[2023-06-30 13:29] LABS: LITHIUM LEVEL < 0.10 MMOL/L (1.0-1.20)
== END ==
LOC: M SFHCCAPE 12:04
PROVIDERS: ATTEND Physician Assistant Medical
DX: R10.13 Epigastric pain (principal); R41.3 Other amnesia; E11.8 Type 2 diabetes mellitus with unspecified complications

== ENCOUNTER → 2023-08-25 | Outpatient (REF) | payer OTHER, MEDICAID ==
[~2023-08-25] MED LIST changes: +BUPR-597 PO; -BUPR300T92 PO; +DOXY-440 PO; -DOXY-444 PO
[2023-08-25 17:21] LABS: BASO # 0.1 10^3/uL (0.0-0.2); BASO % 0.6 % (0.0-1.0); EOS # 0.1 10^3/uL (0.0-0.5); EOS % 1.4 % (0.0-3.0); HEMATOCRIT 46.6 % (42.0-52.0); HEMOGLOBIN 15.9 g/dl (13.5-17.5); LYMPH # 2.1 10^3/uL (1.5-5.0); LYMPH % 26.2 % (24.0-44.0); MEAN CORPUSCULAR HGB CONC 34.1 g/dl (32.0-36.5); MEAN CORPUSCULAR VOLUME 90.8 fl (80.0-96.0); MONO # 0.6 10^3/uL (0.0-0.8); MONO % 7.4 % (2.0-8.0); NEUTROPHILS % 64.3 % (36.0-66.0); PLATELET COUNT, AUTOMATED 228 10^3/uL (150-450); RED BLOOD COUNT 5.13 10^6/uL (4.30-6.10); WHITE BLOOD COUNT 7.8 10^3/uL (4.0-10.0)
[2023-08-25 17:35] LABS: C REACTIVE PROTEIN QUANTITATIV < 0.40 MG/DL (<1.0)
[2023-08-25 18:27] LABS: PROCALCITONIN <0.04 ng/ml
[2023-08-25 18:34] LABS: ALKALINE PHOSPHATASE 86 U/L (46-116); ALT/SGPT 17 U/L (7.0-40); AST/SGOT 15 U/L (<34); BILIRUBIN,TOTAL 0.4 MG/DL (0.3-1.2); BLOOD UREA NITROGEN 24 MG/DL (9-23); CALCIUM LEVEL 9.1 MG/DL (8.3-10.6); CARBON DIOXIDE LEVEL 24 MMOL/L (20-31); CHLORIDE LEVEL 105 MMOL/L (98-107); CREATININE FOR GFR 1.34 MG/DL (0.70-1.30); GLOMERULAR FILTRATION RATE 57.9 (>49); GLUCOSE, FASTING 195 MG/DL (74-106); POTASSIUM SERUM 4.4 MMOL/L (3.5-5.1); SODIUM LEVEL 135 MMOL/L (136-145); TOTAL PROTEIN 7.2 G/DL (5.7-8.2)
== END ==
LOC: M SFHCCAPE 13:56
PROVIDERS: ATTEND Physician Assistant Medical
DX: R04.2 Hemoptysis (principal); R79.89 Other specified abnormal findings of blood chemistry

== ENCOUNTER → 2023-08-25 | Outpatient (CLI) | payer OTHER, MEDICAID | LOC: M CLY 14:36 | PROVIDERS: ATTEND Physician Assistant Medical | DX: R04.2 Hemoptysis (principal) ==

== ENCOUNTER → 2023-08-31 | Outpatient (REF) | payer OTHER, MEDICAID ==
[2023-08-31 17:20] LABS: BLOOD UREA NITROGEN 15 MG/DL (9-23); CALCIUM LEVEL 9.1 MG/DL (8.3-10.6); CARBON DIOXIDE LEVEL 25 MMOL/L (20-31); CHLORIDE LEVEL 107 MMOL/L (98-107); CREATININE FOR GFR 0.85 MG/DL (0.70-1.30); GLOMERULAR FILTRATION RATE > 60.0 (>49); GLUCOSE, FASTING 160 MG/DL (74-106); POTASSIUM SERUM 4.6 MMOL/L (3.5-5.1); SODIUM LEVEL 139 MMOL/L (136-145)
== END ==
LOC: M SFHCCAPE 13:42
PROVIDERS: ATTEND Physician Assistant Medical
DX: R79.89 Other specified abnormal findings of blood chemistry (principal)

== ENCOUNTER → 2024-05-21 | Outpatient (REF) | payer MEDICARE ==
[~2024-05-21] MED LIST changes: +FLUO-365 PO; -FLUO20CA22 PO; +GABA-1172 PO; -GABA-282 PO; +ONDA-282 SL; -ONDA4TAB6 SL
[2024-05-21 18:46] LABS: BASO % 0.5 % (0.0-1.0); EOS # 0.1 10^3/uL (0.0-0.5); EOS % 1.5 % (0.0-3.0); HEMATOCRIT 45.7 % (42.0-52.0); HEMOGLOBIN 15.7 g/dl (13.5-17.5); LYMPH # 2.6 10^3/uL (1.5-5.0); MEAN CORPUSCULAR HEMOGLOBIN 30.5 pg (27.0-33.0); MEAN CORPUSCULAR HGB CONC 34.4 g/dl (32.0-36.5); MEAN CORPUSCULAR VOLUME 88.7 fl (80.0-96.0); MONO # 0.6 10^3/uL (0.0-0.8); MONO % 6.6 % (2.0-8.0); NEUTROPHILS # 5.4 10^3/uL (1.5-8.5); NEUTROPHILS % 61.3 % (36.0-66.0); PLATELET COUNT, AUTOMATED 183 10^3/uL (150-450); RED BLOOD COUNT 5.15 10^6/uL (4.30-6.10); WHITE BLOOD COUNT 8.8 10^3/uL (4.0-10.0)
[2024-05-21 19:33] LABS: ALBUMIN 4.1 G/DL (3.2-5.2); ALKALINE PHOSPHATASE 79 U/L (40-129); ALT/SGPT 16 U/L (7.0-40); AST/SGOT 15 U/L (<34); BILIRUBIN,TOTAL 0.5 MG/DL (0.3-1.2); BLOOD UREA NITROGEN 14 MG/DL (9-23); CALCIUM LEVEL 9.1 MG/DL (8.3-10.6); CARBON DIOXIDE LEVEL 28 MMOL/L (20-31); CHLORIDE LEVEL 101 MMOL/L (98-107); CHOLESTEROL LEVEL 139 MG/DL (<200); CREATININE FOR GFR 0.65 MG/DL (0.70-1.30); GLOMERULAR FILTRATION RATE > 60.0 (>49); GLUCOSE, FASTING 126 MG/DL (74-106); HDL CHOLESTEROL 49.5 MG/DL (>40); LDL CHOLESTEROL 73.1 MG/DL (<100); NON-HDL-C 89.5 MG/DL; POTASSIUM SERUM 4.6 MMOL/L (3.5-5.1); PSA SCREENING 0.13 NG/ML (< 4.00); SODIUM LEVEL 136 MMOL/L (136-145); TOTAL PROTEIN 7.5 G/DL (5.7-8.2); TRIGLYCERIDES LEVEL 82 MG/DL (<150)
[2024-05-21 19:41] LABS: HEMOGLOBIN A1c 7.1 % (4.0-6.0)
== END ==
LOC: M SFHCCAPE 09:22
PROVIDERS: ATTEND Physician Assistant Medical
DX: E11.8 Type 2 diabetes mellitus with unspecified complications (principal); I25.10 Atherosclerotic heart disease of native coronary artery without angina pectoris; Z12.5 Encounter for screening for malignant neoplasm of prostate; F32.9 Major depressive disorder, single episode, unspecified; F41.9 Anxiety disorder, unspecified
CPT/HCPCS: 80053; 80061; 83036; 85025; G0103

== ENCOUNTER 2024-08-10 11:03 | Day surgery (SDC) | payer MEDICARE ==
[~2024-08-10] VITALS: Ht 190.5 cm; Wt 98.4 kg
[~2024-08-10 11:03] MED LIST changes: +B-1100TA2 PO; -BUPR-597 PO; +BUPR-766 PO; +BUPR150T15 PO; -BUPR1TAB53 PO; +DULO1CAP4 PO; +DULO1CAP6 PO; +ISOS1TAB36 PO; +LIDOCAINE 2% 100MG/5ML SDV (FOR ANES.) As Ordered ONE; +LUMA42CA PO; +METO1TAB32 PO; +NICO21DI37 TOP; +NITR0.4S14 SL; +PANT20TA6 PO; -RABE1TAB4 PO; +RABE1TAB5 PO; +THERTAB52 PO; +TIRZ10PE SC; +VARE1TAB2 PO; +propofoL 200 MG/20 ML VIAL As Ordered ONE
[2024-08-10] MEDS ORDERED: fentaNYL 100 MCG/2 ML INJECTION As Ordered ONE (12:05)
[2024-08-10 13:11] VITALS: TEMP 96.4
[2024-08-10 13:30] VITALS: BP 139/83; O2SAT 98
== END 2024-08-10 13:39 | disposition home or self-care (01) ==
LOC: M OPP 11:03
PROVIDERS: ATTEND Surgery
DX: Z12.11 Encounter for screening for malignant neoplasm of colon (principal); K64.8 Other hemorrhoids; K64.4 Residual hemorrhoidal skin tags; K57.30 Diverticulosis of large intestine without perforation or abscess without bleeding; Z86.0100 Personal history of colon polyps, unspecified; K31.89 Other diseases of stomach and duodenum; K30 Functional dyspepsia; Z79.01 Long term (current) use of anticoagulants; Z95.5 Presence of coronary angioplasty implant and graft; G47.30 Sleep apnea, unspecified; Z88.8 Allergy status to other drugs, medicaments and biological substances; Z79.82 Long term (current) use of aspirin; Z79.84 Long term (current) use of oral hypoglycemic drugs; Z79.85 Long-term (current) use of injectable non-insulin antidiabetic drugs; Z79.899 Other long term (current) drug therapy; J43.9 Emphysema, unspecified; F17.210 Nicotine dependence, cigarettes, uncomplicated
CPT/HCPCS: 43239; 88305; G0105; J3010